=== PATIENT | male | born 1940 | race Caucasian/White ===

== ENCOUNTER 2019-09-01 07:33 | Day surgery (SDC) | payer MEDICARE, OTHER, SELFPAY ==
[2019-09-01 07:58] VITALS: BMI 28.8
--- NOTE | 2019-09-01 08:29 | ANES.PREANE2 ---
Pre-Anesthetic Assessment Pre-Anesthetic Assessment: Height/Weight: Height 1.75 m Weight 88.451 kg Preop Diagnosis: family history of colon cancer Proposed Procedure: Operation Date: 09/01/19 09:00 Proposed Procedures p Colonoscopy(Not Applicable) - Eber Judge MD Familial anesthetic complications: denies Was Beta Bertha taken within 24 hours: Yes (299) Last Intake: 00:00 Social: Social History: Tobacco (quit at age 35) and No alcohol Exam: Pre-Anes Outpt Exam: alert, oriented x 3, clear to auscultation bilaterally and regular rate & rhythm Airway: Submandibular: WNL Cervical ROM: WNL MP: 2 Dentition: Full History/ROS: No significant history except as noted CV/HEM: CV/HEM: Afib (ablation ) Metabolic: Metabolic: DM (A1C >6), Hyperlipidemia and Thyroid Musc/skel: Musc/skel: Weakness Neuropsych: Neuropsych: Depression and WISE (migraines) Anesthetic Plan: ASA status: 2 Anesthesia: Anesthesia Evaluation and MAC Risk of > 500 ml blood loss (7ml/kg in children): No Data Anesthesia Cardiac Studies: No Data to Display
[2019-09-01] MEDS: sodium chloride 0.9% 1,000 ML 30 ML (08:33)
[2019-09-01 08:35] VITALS: BP 119/68; PULSE 77; RESP 18; TEMP 36.6; O2SAT 100
[2019-09-01 08:43] LABS: Glucose Point of Care 129 mg/dL (70-110)
--- NOTE | 2019-09-01 08:53 | PM.HPUD ---
H&P update H&P Update: DATE OF SURGERY/PROCEDURE: 09/01/19 DATE H&P PERFORMED: 09/01/19 PREOP DIAGNOSIS: family history of colon cancer PLANNED PROCEDURE: Operation Date: 09/01/19 09:00 Proposed Procedures p Colonoscopy(Not Applicable) - Eber Judge MD Full H&P HPI: PRIMARY INDICATION/DIAGNOSIS FOR SURGICAL PROCEDURE: Personal history of colon polyps PLANNED PROCEDURE: Colonoscopy HPI: He presents for routine screening colonoscopy due to his personal history of colon polyp ROS: ROS: He denies fever chills nausea vomiting or chest pain. Perinent History: Medical/Surgical History: He has a personal history of A. fib and is on sotalol. He has hypothyroidism and mild diabetes mellitus type 2. Family History: Nothing pertinent Social History: He does not smoke Pertinent Exam Findings: PHYSICAL EXAM: alert, oriented x 3, clear to auscultation bilaterally and regular rate & rhythm
[2019-09-01 09:19] VITALS: BP 109/51; PULSE 94; RESP 14; TEMP 36.3; O2SAT 98
--- NOTE | 2019-09-01 09:24 | SUR.OPER ---
CLIP PLACED IN ASCENDING COLON
[2019-09-01 10:04] VITALS: BP 142/94; PULSE 63; RESP 18; TEMP 36.6; O2SAT 100
--- NOTE | 2019-09-01 10:25 | ANE.PACU2 ---
 Inpatient post-anesthesia follow up: Airway intact: Yes Vital signs: Temperature 97.8 F Pulse Rate 63 Respiratory Rate 18 Blood Pressure 142/94 Pulse Oximetry 100 Oxygen Delivery Me thod Room Air Oxygen Flow Rate 3 Fraction of Inspir ed Oxygen Hydration adequate: Yes Nausea and vomiting: No Mental status: Baseline
== END 2019-09-01 10:25 | disposition home or self-care (01) ==
PROVIDERS: Family Provider Internal Medicine; PCP Internal Medicine; Visit Provider Internal Medicine
PROC: 0DJD8ZZ Inspection of Lower Intestinal Tract, Via Natural or Artificial Opening Endoscopic (ICD-10-PCS; CPT 45378; principal; 2019-09-01 09:00)
DX: Z12.11 Encounter for screening for malignant neoplasm of colon (principal); Z86.010 Personal history of colon polyps; D12.2 Benign neoplasm of ascending colon; K57.30 Diverticulosis of large intestine without perforation or abscess without bleeding; I48.91 Unspecified atrial fibrillation; E03.9 Hypothyroidism, unspecified; E11.9 Type 2 diabetes mellitus without complications
CPT/HCPCS: 12345; 36416; 45385; 82962; 88305; J2704; J7030

== ENCOUNTER → 2020-02-12 15:16 | Outpatient (BNVA) | payer MEDICARE, OTHER, SELFPAY | PROVIDERS: Family Provider Internal Medicine; PCP Internal Medicine; Visit Provider Internal Medicine | DX: E11.9 Type 2 diabetes mellitus without complications (principal); I10 Essential (primary) hypertension; E03.9 Hypothyroidism, unspecified; I48.0 Paroxysmal atrial fibrillation | CPT/HCPCS: 80053; 83036; 84443; 85025 ==

== ENCOUNTER → 2020-03-10 12:54 | Outpatient (BNVA) | payer MEDICARE, OTHER, SELFPAY | PROVIDERS: Family Provider Internal Medicine; PCP Internal Medicine; Referring Provider Dermatology; Visit Provider Dermatology | DX: Z12.83 Encounter for screening for malignant neoplasm of skin (principal); L29.9 Pruritus, unspecified; L72.0 Epidermal cyst; B35.1 Tinea unguium; D18.01 Hemangioma of skin and subcutaneous tissue; L82.1 Other seborrheic keratosis | CPT/HCPCS: 99203 ==

== ENCOUNTER 2020-05-24 03:28 | Inpatient (IN) | payer MEDICARE, OTHER, SELFPAY ==
[2020-05-24] VITALS (16 sets, daily range): BP systolic 138–180; BP diastolic 67–98; PULSE 66–99; RESP 14–20; TEMP 36.2–36.6; O2SAT 91–98; BMI 29.0
--- NOTE | 2020-05-24 03:30 | CTR_ITS ---
PROCEDURE INFORMATION: Exam: CT Head Without Contrast Exam date and time: 05/24/2020 3:32 AM Age: 79 years old Clinical indication: Speech disturbance and weakness, extremity; Left; Slurred speech TECHNIQUE: Imaging protocol: Computed tomography of the head without contrast. Radiation optimization: All CT scans at this facility use at least one of these dose optimization techniques: automated exposure control; mA and/or kV adjustment per patient size (includes targeted exams where dose is matched to clinical indication); or iterative reconstruction. Other technique: STROKE PROTOCOL was implemented. COMPARISON: MR head wo con* [id number] 02/14/2016 8:20 AM RADIATION DOSE METRICS: Total DLP (mGy-cm): 910.45 FINDINGS: Brain: Normal. No hemorrhage. Unremarkable white matter. No mass effect. Cerebral ventricles: No ventriculomegaly. Bones/joints: Unremarkable. No acute fracture. Paranasal sinuses: Visualized sinuses are unremarkable. No fluid levels. Mastoid air cells: Visualized mastoid air cells are well aerated. Soft tissues: Unremarkable. CT/CT head wo con* [id number] IMPRESSION: No acute intracranial abnormality. ASSESSMENT: ASPECTS ([place] Stroke Program Early CT Score) is 10. Radiation Dose CTDIVOL = (mGy): DLP = 910.45 (mGy-cm)
--- NOTE | 2020-05-24 03:49 | ECG_ITS ---
[facility] Test Date: 2020-05-24 Pat Name: Ismael Guevara Department: Room: Gender: Male [employer]: : 1940 Requested By: Sudeep Ferraro Order Number: [id number] Alex MD: ANTONY MEJIA Measurements Intervals [place] Rate: 68 P: 58 OH: 217 QRS: 33 QRSD: 110 T: 69 QT: 430 QTc: 457 Interpretive Statements SINUS RHYTHM WITH FIRST DEGREE AV BLOCK No previous ECG available for comparison Electronically Signed On 05-24-2020 20:15:08 TIRE LAYER by ANTONY MEJIA [email or web address]
--- NOTE | 2020-05-24 03:49 | XRR_ITS ---
PROCEDURE INFORMATION: Exam: XR Chest, 1 View Exam date and time: 05/24/2020 4:06 AM Age: 79 years old Clinical indication: Other: CVA; Patient HX: Stroke like symptoms since last night TECHNIQUE: Imaging protocol: XR of the chest Views: 1 view. COMPARISON: CR Chest 1 [place] [id number] 10/18/2013 2:31 PM FINDINGS: Lungs: Unremarkable. No consolidation. Pleural space: Unremarkable. No pleural effusion. No pneumothorax. Heart/Mediastinum: Unremarkable. No cardiomegaly. Bones/joints: Unremarkable. XR/XR chest 1V portable [id number] IMPRESSION: No acute findings.
--- NOTE | 2020-05-24 03:49 | CTR_ITS ---
PROCEDURE INFORMATION: Exam: CT Angiography Head With Contrast Exam date and time: 05/24/2020 4:05 AM Age: 79 years old Clinical indication: Speech disturbance and weakness; Slurred speech; Additional info: CVA TECHNIQUE: Imaging protocol: Computed tomography angiography of the head with intravenous contrast. 3D rendering (Not supervised by radiologist): MIP and/or 3D reconstructed images were created by the technologist. Radiation optimization: All CT scans at this facility use at least one of these dose optimization techniques: automated exposure control; mA and/or kV adjustment per patient size (includes targeted exams where dose is matched to clinical indication); or iterative reconstruction. Contrast material: OMNI 350; Contrast volume: 95 ml; Contrast route: INTRAVENOUS (IV); COMPARISON: CT head wo con* [id number] 05/24/2020 3:31 AM RADIATION DOSE METRICS: Total DLP (mGy-cm): 2453.48 FINDINGS: ANTERIOR CIRCULATION: Right internal carotid artery: Unremarkable. Intracranial segment is patent with no significant stenosis. No aneurysm. Right middle cerebral artery: Unremarkable. No occlusion or significant stenosis. No aneurysm. Right anterior cerebral artery: Unremarkable. No occlusion or significant stenosis. No aneurysm. Left internal carotid artery: Unremarkable. Intracranial segment is patent with no significant stenosis. No aneurysm. Left middle cerebral artery: Unremarkable. No occlusion or significant stenosis. No aneurysm. Left anterior cerebral artery: Unremarkable. No occlusion or significant stenosis. No aneurysm. POSTERIOR CIRCULATION: Right vertebral artery: Unremarkable. No occlusion or significant stenosis. No aneurysm. Left vertebral artery: Unremarkable. No occlusion or significant stenosis. No aneurysm. Basilar artery: Unremarkable. No occlusion or significant stenosis. No aneurysm. Right posterior cerebral artery: Unremarkable. No occlusion or significant stenosis. No aneurysm. Left posterior cerebral artery: Unremarkable. No occlusion or significant stenosis. No aneurysm. Brain: No definite mass, mass effect, or midline shift. Cerebral ventricles: Normal. No ventriculomegaly. Bones/joints: Unremarkable. No acute fracture. Soft tissues: Unremarkable. IMPRESSION: No large vessel stenosis or occlusion. PROCEDURE INFORMATION: Exam: CT Angiography Neck With Contrast Exam date and time: 05/24/2020 4:05 AM Age: 79 years old Clinical indication: Speech disturbance and weakness; Slurred speech; Additional info: CVA TECHNIQUE: Imaging protocol: Computed tomography angiography of the neck with intravenous contrast. 3D rendering (Not supervised by radiologist): MIP and/or 3D reconstructed images were created by the technologist. Radiation optimization: All CT scans at this facility use at least one of these dose optimization techniques: automated exposure control; mA and/or kV adjustment per patient size (includes targeted exams where dose is matched to clinical indication); or iterative reconstruction. Contrast material: OMNI 350; Contrast volume: 95 ml; Contrast route: INTRAVENOUS (IV); COMPARISON: CT head wo [facility]* [id number] 05/24/2020 3:31 AM RADIATION DOSE METRICS: Total DLP (mGy-cm): 2453.48 FINDINGS: Right common carotid artery: No stenosis. No dissection or occlusion. Right internal carotid artery: Thick calcified plaque disease is seen in the proximal short segment causing more than 70% stenosis. Right external carotid artery: No occlusion or stenosis of the origin. Right vertebral artery: No stenosis. No dissection or occlusion. Left common carotid artery: No stenosis. No dissection or occlusion. Left internal carotid artery: Mild calcified plaque disease is seen in the proximal left internal carotid artery causing less than 50% stenosis. Left external carotid artery: No occlusion or stenosis of the origin. Left vertebral artery: No stenosis. No dissection or occlusion. Bones/joints: No acute fracture. Soft tissues: Normal. No significant soft tissue swelling. 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 Mild short-segment stenosis is seen in the proximal left internal carotid artery. REFERENCES: NASCET CRITERIA. The degree of internal carotid artery stenosis is based on NASCET criteria. Normal is no stenosis. Mild is less than 50% stenosis. Moderate is 50-69% stenosis. Severe is 70% to 99% stenosis. Total occlusion is no detectable patent lumen. Radiation Dose CTDIVOL = (mGy): DLP = 2453.48~2453.48 (mGy-cm)
[2020-05-24 04:07] LABS: Basophils % 1.2 %; Eosinophils # 0.1 10^3/uL (0.0-0.8); Eosinophils % 1.8 %; Hematocrit 37.7 % (42.0-52.0); Hemoglobin 12.1 g/dL (11.7-16.6); Lymphocytes % 30.6 %; Mean Corpuscular HGB Conc 32.1 g/dL (30.0-36.0); Mean Corpuscular Hemoglobin 26.9 pg (28.0-34.0); Mean Platelet Volume 10.3 fL (7.4-10.4); Monocytes # 0.7 10^3/uL (0.2-0.9); Neutrophils # 1.52 10^3/uL (1.8-7.7); Neutrophils % 46.1 %; Nucleated Red Blood Cells % 0 %; Platelet Count 140 10^3/cmm (130-400); Red Blood Count 4.49 10^6/uL (4.1-5.3); Red Cell Distribution Width 15.9 % (12.1-15.1); White Blood Count 3.3 10^3/uL (4.0-10.0)
[2020-05-24] MEDS: iohexol 350 mg/mL 100 mL Btl IV (04:10)
[2020-05-24] MEDS: sodium chloride 0.9% 500 ML 999 ML IV (04:12)
[2020-05-24 04:20] LABS: INR 1.05 (0.8-1.2)
[2020-05-24 04:21] LABS: Partial Thromboplastin Time 32.2 SECONDS (23.9-36.7)
[2020-05-24 04:32] LABS: Alanine Aminotransferase 13 U/L (0-41); Albumin Level 4.2 g/dL (3.5-5.2); Alkaline Phosphatase 44 IU/L (40-130); Anion Gap 15.9 (5-19); Aspartate Amino Transferase 18 U/L (0-40); Blood Urea Nitrogen 14 mg/dL (8-23); Carbon Dioxide 25 mmol/L (22-29); Chloride 95 mmol/L (98-107); Globulin 2.4 g/dL (1.3-4.6); Glucose 165 mg/dL (65-115); Osmolality Calculated 278 mOsm/kg (285-295); Potassium 3.9 mmol/L (3.5-5.1); Sodium 132 mmol/L (136-145); Total Bilirubin 0.4 mg/dL (0.15-1.2); Total Protein 6.6 g/dL (6.6-8.7)
--- NOTE | 2020-05-24 04:37 | W.ED.NEUROSD ---
HPI - Neuro Symptoms/Deficit General: Chief Complaint: Neuro Symptoms/Deficit Stated Complaint: STROKE LIKE SYMPTOMS Time Seen by Provider: 05/24/20 03:30 History of Present Illness: HPI Narrative: 79-year-old male, anticoagulated for chronic atrial fibrillation status post ablation x2, presents with left-sided weakness. This is acute onset. His last known well was around 10 PM when he went to bed. He awoke at 3 AM to use the restroom, and stumbled noted that his left side was weak. Onset (ago): hour(s) Last Observed Normal: 22:00 Location: left face, dysarthria, left arm and left leg History of same: No Severity: moderate Quality: weak and numb Relieving factors: none Exacerbating factors: none Context: sudden onset On Anticoagulants: Yes Associated symptoms: Reports anorexia and weakness; Deny chest pain, short of breath, syncope or vomiting Review of Systems Const: Denies: fever(s) or chills Card: Denies: chest pain, palpitations or syncope Resp: Denies: dyspnea, productive cough or non-productive cough GI: Denies: vomiting PFSH ED PFSH: Medical History (Updated 05/24/20 @ 06:03 by Sudeep Lopez DO) A-fib Diabetes mellitus Electrical isolation of left atrial appendage after cardiac ablation procedure for atrial fibrillation Hypothyroid Surgical History History of tonsillectomy and adenoidectomy Family History Other CAD (coronary artery disease) Denies family history of Diabetes Cancer Social History Smoking and tobacco status: former smoker Alcohol intake: never History of recent travel: No Current gender identity: Male NIH stroke score NIHSS: Level Of Consciousness - 1a: 0 Level Of Consciousness Questions - 1b: Both Correct Level Of Consciousness Commands - 1c: Both Correct Best Gaze - 2: Normal Visual [place] - 3: No Visual Loss Facial Palsy - 4: Normal Motor Arm Right - 5: No Drift Motor Arm Left - 5: Drift Motor Leg Right - 6: No Drift Motor Leg Left - 6: Drift Limb Ataxia - 7: Present In One Limb Sensory - 8: Mild To Moderate Loss Best Language - 9: No Aphasia Dysarthia - 10: Mild/Moderate Dysarthia Extinction And Inattention - 11: 0 Score: Total Score: 5 Physical Exam Const: GENERAL APPEARANCE: well developed ORIENTATION/CONSCIOUSNESS: Yes oriented to person, Yes oriented to place and Yes oriented to time HENMT: COMMON NORMALS: normocephalic, external ears normal and Normal external nose present HEAD & SCALP: normocephalic FACE & SINUS: normal facial exam NOSE: Normal external nose present and No nasal discharge present EXTERNAL EAR: Yes external ears normal TEETH & GINGIVA: no abnormal tooth and associated gingiva THROAT: posterior oropharynx normal; no peritonsillar mass Eye: COMMON NORMALS: Equal, round and reactive pupils present, EOMs intact bilaterally and conjunctivae normal EYELID: eyelids normal CONJUNCTIVA: Yes conjunctivae normal PUPIL: Yes Equal, round and reactive pupils present Neck/C-Spine: GENERAL: No tracheal deviation Chest: COMMONS NORMALS: normal inspection of the chest CHEST: No tenderness Resp: COMMON NORMALS: clear to auscultation bilaterally EFFORT & INSPECTION: No tachypneic, No respiratory distress, No retractions, No uses accessory muscles and No tracheal deviation AUSCULTATION: clear to auscultation bilaterally, no rhonchi, no wheezes and lung sounds not diminished Cardio: COMMON NORMALS: regular rate and regular rhythm RATE: regular rate RHYTHM: regular rhythm HEART SOUNDS: no murmurs PERIPHERAL PULSES: radial pulses present GI: INSPECTION: No abdominal distension AUSCULTATION: No Hyperactive bowel sounds present and No Hypoactive bowel sounds present PALPATION: No Guarding due to palpation present (GI) and No Rigid due to palpation PERCUSSION: no dullness to percussion and no tympanic to percussion Neuro: SENSORIUM/ORIENTATION: Yes oriented to person, Yes oriented to place and Yes oriented to time Psych: COMMON NORMALS: mental status grossly normal Skin: COMMON NORMALS: no rashes or lesions noted GENERAL SKIN EXAM: no rashes or lesions noted Course Consultations: Consultation #1: tammie Time: 04:27 Consultation #2: Steffany Time: 06:01 Vital Signs: Vital signs: Vital Signs Temperature 97.1 F L 05/24/20 03:41 Pulse Rate 72 05/24/20 06:01 Respiratory Rate 18 05/24/20 06:01 Blood Pressure 140/67 05/24/20 06:01 Pulse Oximetry 96 11/02/20 06:01 MDM - Neuro Symptoms/Deficit MDM Narrative: Medical decision making narrative: 79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 He has no visual field loss. He has no aphasia. Weakness is worse in the left upper extremity than the left lower extremity. He has some sensory changes as well. He is on anticoagulants, and is greater than 5 hours out of his last known well time. These are contraindicated for TPA therapy. CTA is pending. CTA resulted. There is right internal carotid short segment stenosis greater than 70% with no distinct occlusion. Consulted stroke team neurology at [facility] in [place]. Given his last known well of 2200 last night, the fact that he is on apixaban, and and the fact that there is no distinct occlusion, they had nothing specific to add other than he will need urgent outpatient interventional neurosurgery referral in a few days once his work-up is complete. Lab Data: Labs: Lab Results 05/24/20 05/24/20 05/24/20 Range/Units 03:55 03:55 03:55 WBC 3.3 L (4.0-10.0) 10^3/ uL RBC 4.49 (4.1-5.3) 10^6/u L Hgb 12.1 (11.7-16.6) g/dL Hct 37.7 L (42.0-52.0) % MCV 84.0 (80-94) fL MCH 26.9 L (28.0-34.0) pg MCHC 32.1 (30.0-36.0) g/dL RDW 15.9 H (12.1-15.1) % Plt Count 140 (130-400) 10^3/c mm MPV 10.3 (7.4-10.4) fL Neut % (Auto) 46.1 % Lymph % (Auto) 30.6 % Bland % (Auto) 20.0 % Eos % (Auto) 1.8 % Baso % (Auto) 1.2 % Neut # (Auto) 1.52 L (1.8-7.7) 10^3/u L Lymph # (Auto) 1.0 (0.8-4.8) 10^3/u L Bland # (Auto) 0.7 (0.2-0.9) 10^3/u L Eos # (Auto) 0.1 (0.0-0.8) 10^3/u L Baso # (Auto) 0.0 (0.0-0.1) 10^3/u L Nucleated RBC % (a uto) 0 % Nucleated RBCs # 0.0 /100WBC PT 14.00 (12.1-14.9) SECO NDS INR 1.05 (0.8-1.2) APTT 32.2 (23.9-36.7) SECO NDS Sodium 132 L (136-145) mmol/L Potassium 3.9 (3.5-5.1) mmol/L Chloride 95 L (98-107) mmol/L Carbon Dioxide 25 (22-29) mmol/L Anion Gap 15.9 (5-19) BUN 14 (8-23) mg/dL Creatinine 0.7 (0.7-1.2) mg/dL GFR Calculation Not Reportable Glucose 165 H (65-115) mg/dL Calculated Osmolal ity 278 L (285-295) mOsm/k g Calcium 9.0 (8.5-10.5) mg/dL Total Bilirubin 0.4 (0.15-1.2) mg/dL AST 18 (0-40) U/L ALT 13 (0-41) U/L Alkaline Phosphata se 44 (40-130) IU/L Total Protein 6.6 (6.6-8.7) g/dL Albumin 4.2 (3.5-5.2) g/dL Globulin 2.4 (1.3-4.6) g/dL Discharge Plan Discharge Patient Disposition: Admitted As Inpatient Clinical Impression: Cerebrovascular accident Qualifiers: CVA mechanism: embolism Precerebral and cerebral artery: middle cerebral artery Laterality of affected vessel: right Qualified Code(s): I63.411 - Cerebral infarction due to embolism of right middle cerebral artery Condition: Stable Referrals: Eber Judge MD [Primary Care Provider] - Coding Level of Care Code ED Adjustment Examiner for [facility] Fwd Exam Comprehensive
[2020-05-24] MEDS: ondansetron 2 mg/ML SDV 2 mL 4 MG IVP (05:10)
--- NOTE | 2020-05-24 05:15 | PC.NURSE ---
upopn returning from CT, pt has complaint of nausea. Dr notified, vo obtained for 4mg of zofran. Pt states improvement from nausea after zofran adm
--- NOTE | 2020-05-24 05:35 | PC.NURSE ---
during rounding, pt offered assistance with urinal. pt refusing assistance, stating he will call if I need help . Pt able to lift L arm only without resistance. L arm does drift away while attempting to hold arms straight. Speech is slower, slurring more pronounced. Dr brody
[2020-05-24 06:21] LABS: Add Urine Microscopic? NO
[2020-05-24 06:26] LABS: Bilirubin Urine Neg (Negative); Blood Urine Neg (Negative); Glucose Urine UA 4+ (Normal); Ketones Urine 2+ (Negative); Leukocyte Esterase Urine Negative (Negative); Nitrate Urine Negative (Negative); Protein Urine Neg (Negative); Urine Appearance Clear (CLEAR); Urine Color Yellow (Yellow); Urobilinogen Urine Norm (Negative); pH Urine 5 (5-7)
--- NOTE | 2020-05-24 06:48 | PC.NURSE ---
Received report , assumed care. No changes noted from report. Waiting for room to come available. Continue to monitor.
--- NOTE | 2020-05-24 07:30 | PC.NURSE ---
Patient to CSU from ER. Patient resting in bed, A&Ox4. Neuro assessment performed. Patient educated on fall risk, bed alarm activated. Patient oriented to room and call light. Nurse to continue to monitor.
--- NOTE | 2020-05-24 07:50 | MR_ITS ---
WS: [id number] MRI HEAD WITH CONTRAST TECHNIQUE: Sagittal T1, T2 axial, T2 axial FLAIR, axial susceptibility weighted imaging, axial diffus ion weighted images, and coronal T2 images were obtained. Pre and post-T1 axial and post T1 coronal i mages. ADC and FSPGR images. CLINICAL INFORMATION: CVA COMPARISON: CT May 25, 2020 and MRI FINDINGS: No evidence of restricted diffusion to suggest acute ischemia. Ventricular system and basal cisterns are patent. 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 Suprasellar extension results in mild mass effect on the optic chiasm. Recommend correlati on with visual symptoms. Slight extension to the right cavernous sinus. Cavernous sinuses and Meckel' s cave appear patent. No hemosiderin on the susceptibility weighted images. No other suspicious intracranial signal abnorma lities. Moderate parenchymal volume loss. Normal posterior fossa. Normal vascular flow voids at the s kull base. No extra-axial fluid collections. Paranasal sinuses and mastoid air cells are well aerated . No enhancing intraparenchymal abnormalities. Normal dural venous sinuses.
--- NOTE | 2020-05-24 07:54 | PM.HP ---
Providers/Chief Complaint Admitting Physician: Cory Valdivia Primary Care Provider: Eber Judge MD Chief Complaint: STROKE LIKE SYMPTOMS History of Present Illness 79-year-old male with a past medical history significant for hypertension, hypothyroidism, and diabetes mellitus who presented to the hospital with left-sided weakness. Patient stated that he woke up around 2:00 a.m. and noticed the symptoms. He was attempting to walk to restroom. Also noted left-sided facial numbness and speech abnormality. Stated he checked his blood pressure in found this to be very elevated at 203/94. Denies any previous history of TIA or CVA. Denies any chest pain or palpitations. No recent fever, chills, nausea vomiting. Called EMS and presented to the hospital for evaluation. NIH score was 5. at the time of my evaluation he had stated that his symptoms were slowly resolving. No tPA was given due to unknown onset of symptoms. Head CT without contrast was performed which did not show any acute intra-cranial abnormalities. Subsequently a CTA of head and neck was performed and he was found to have right internal carotid short-segment stenosis greater than 70%. No distinct occlusion was noted. [facility] neurology was consulted by emergency room and recommended urgent outpatient interventional neuro surgical consult. His laboratory workup showed a WBC of 3.3, hemoglobin of 12.1, hematocrit 37.7 and platelet count of 140. sodium 132, potassium 3.9, chloride 95, bicarb 25, BUN 14 and creatinine is 0.7. Glucose 165. LFTs were within normal limits. Urinalysis showed 4+ glucose and 2+ ketones. Patient was started on aspirin and admitted to the hospital for stroke workup. Review of Systems General: Reports: 10 or more systems reviewed and unremarkable except in HPI and below Medications/Allergies Home Medications Medication Instructions Recorded Confirmed Last Taken Type apixaban 5 mg tablet 5 mg PO BID #180 tab 08/11/19 05/24/20 05/23/20 18:00 Rx levothyroxine [Synthroid] 150 mcg PO DAILY 09/01/19 05/24/20 05/23/20 08:00 History sotalol 120 mg PO BID 09/01/19 05/24/20 05/23/20 18:00 History irbesartan 75 mg tablet 75 mg PO DAILY #90 tab 01/13/20 05/24/20 05/23/20 08:00 Rx canagliflozin 300 mg tablet 300 mg PO DAILY #90 tab 02/09/20 05/24/20 05/23/20 08:00 Rx clonazepam 0.5 mg tablet 0.5 mg PO TID PRN #90 tab 03/12/20 05/24/20 Unknown Rx sitagliptin 100 mg tablet 100 mg PO DAILY #30 tab 04/16/20 05/24/20 05/23/20 08:00 Rx terbinafine HCl 250 mg PO BEDTIME 05/24/20 05/24/20 05/23/20 20:00 History Allergies Allergy/AdvReac Type Severity Reaction Status Date / Time rivaroxaban [From Xarelto] AdvReac nausea Verified 03/10/20 13:13 PFSH Acute PFSH: Medical History (Updated 05/24/20 @ 06:03 by Sudeep Lopez DO) A-fib Diabetes mellitus Electrical isolation of left atrial appendage after cardiac ablation procedure for atrial fibrillation Hypothyroid Surgical History History of tonsillectomy and adenoidectomy Family History Other CAD (coronary artery disease) Denies family history of Diabetes Cancer Social History Smoking and tobacco status: former smoker Alcohol intake: never History of recent travel: No Current gender identity: Male Vitals/I&O/Wt Last Vital Signs Temp 97.5 F L 05/24/20 07:15 Pulse 84 05/24/20 07:52 Resp 16 05/24/20 07:52 BP 180/98 05/24/20 07:52 Pulse Ox 96 05/24/20 07:15 Weight last 48 hrs Weight 89.358 kg Physical Exam Narrative: EXAM NARRATIVE: General: Alert, Awake HEENT : Speech back to baseline, Grossly unremarkable CVS - Regular rate and rythym ,no obvious murmurs Chest: Clear to ausculatation ABD - Soft Non-tender Ext - No edema Neuro; Noted motor deficit on left UE/LE - 3/5, no significant facial droop, sensory system intact. Data : 05/24/20 03:55 05/24/20 03:55 A&P Assessment and plan (1) Cerebrovascular accident: Status: Acute Qualifiers: CVA mechanism: embolism Laterality of affected vessel: right Precerebral and cerebral artery: middle cerebral artery Qualified Code(s): I63.411 - Cerebral infarction due to embolism of right middle cerebral artery (2) A-fib: Status: Acute Qualifiers: Atrial fibrillation type: paroxysmal Qualified Code(s): I48.0 - Paroxysmal atrial fibrillation (3) Hypothyroid: Status: Acute Qualifiers: Hypothyroidism type: acquired Qualified Code(s): E03.9 - Hypothyroidism, unspecified (4) Essential hypertension: Status: Acute (5) Diabetes mellitus: Status: Acute Qualifiers: Diabetes mellitus type: type 2 Diabetes mellitus roasterman insulin use: without roasterman use Diabetes mellitus complication status: without complication Qualified Code(s): E11.9 - Type 2 diabetes mellitus without complications Acute CVA with right sided weakness - Initiate [facility] - Neuro-checks - Cardiac telemetry - CTA Head/Neck - Over 70% stenosis noted in proximal right internal carotid. Mild left internal carotid artery stenosis - MRI Brain ordered - pending - ECHO - pending - Start on Aspirin 325 mg Po daily - High dose statin therapy - Lipitor 80 mg PO qhs - Bedside swallow prior to initiating diet - NPO - NS at 75 cc/hr - Lipid panel in am - A1c in AM - Hold anti-hypertensive - allow for permissive hypertension - Consult PT/OT Severe stenosis of KARLA - Asa/statin started - Will discuss with CTS at [facility] [place] Paroxysmal Atrial Fibrillation - Currently NSR - Resume eliquis after MRI report to assess severity of cva - ECHO - Pending - My require cardiology consult for GÉNESIS Diabetes mellitus - A1c > 8.0 in 01/2020 - Sliding scale insulin - Recheck a1c in am - Hold oral home meds. Hypertension - Holding anti-hypertensive as noted above Hypothyroidism - Check TSH in AM - Resume levothyroxine. GI ppx - PPI DVT ppx - SCDS only pending MRI - Will start Eliquis after Attestations Medical Necessity Statement*: Presented to the hospital with left upper lower extremity weakness suspicious for acute CVA, severe stenosis of right internal carotid artery will require over 2 midnight stay in hospital for evaluation and treatment. Time Spent in Patient Care: Greater than 35 minutes Coding Level of Care Code Acute Steam Conditioner Filling for [place] Diagnoses Cerebrovascular accident I63.411 CVA mechanism: embolism Laterality of affected vessel: right Precerebral and cerebral artery: middle cerebral artery A-fib I48.0 Atrial fibrillation type: paroxysmal Hypothyroid E03.9 Hypothyroidism type: acquired Essential hypertension I10 Diabetes mellitus E11.9 Diabetes mellitus type: type 2 Diabetes mellitus [facility] insulin use: without roasterman use Diabetes mellitus complication status: without complication
[2020-05-24] MEDS: sodium chloride 0.9% 1,000 ML 100 ML IV ×2 (08:39→16:37)
--- NOTE | 2020-05-24 09:57 | PC.CHAP ---
Pastoral Care Encounter/Spiritual Assessment Type of Contact [] Declined art history professor visit [] Patient/Family/Request visit [] Outpatient visit [] Follow-up visit [] Physician referral [] Code/Alert [] Routine visit [] Staff referral [] Actively dying [] Patient sleeping [] Family support [] [] Out of room [] Palliative care [] [x] Receiving care in room [] Pre-surgical visit [] Trauma [] Long length of stay [] ICU visit [] Other: Relational/Emotional Strength [] Patient feels connected with others/family/visitors/staff [] Distress [] Loneliness/isolation [] Abandonment Spirituality of Patient [] Person of Linda [] Attends Anabaptism of their Linda [] Believes in Prayer [] Reads Bible or Scientologist materials [] There are Spiritual issues to be addressed Managed Care Provider Interventions [x] Prayer [] Active listening [] Non-anxious presence [] Spiritual/emotional support [] Crisis/trauma care [] Spiritual counseling [] Bereavement support [] Provided bereavement packet [] Provided Bible/devotional materials [] Provided toy/stuffed animal, coloring book to patient or family member [] Provided Communion [] Anointing/[place] [] Salvation [x] Completed spiritual assessment [] Other: Impact on Illness or Injury [] Angry [] Fearful [] Anxious [] Often cries [] Exhaustion [] Unable to work [] Unable to attend mu-ism [] Unable to walk/stand [] Unable to read [] Unable to drive [] Unable to eat/drink [] Unable to sleep [] Unable to be with family [] Patient intubated [] Other: Summary Time spent with patient
--- NOTE | 2020-05-24 09:58 | PC.NURSE ---
Patient to MRI at this time.
--- NOTE | 2020-05-24 10:13 | PC.OT ---
OT note: Pt going to MRI. Will attempt later as able.
--- NOTE | 2020-05-24 10:41 | MR_ITS ---
WS: [id number] MRI HEAD WITH CONTRAST TECHNIQUE: Sagittal T1, T2 axial, T2 axial FLAIR, axial susceptibility weighted imaging, axial diffus ion weighted images, and coronal T2 images were obtained. Pre and post-T1 axial and post T1 coronal i mages. ADC and FSPGR images. CLINICAL INFORMATION: CVA COMPARISON: CT May 24, 2020 and MRI FINDINGS: Tiny focus of restricted diffusion involving the right centrum semiovale. Additional small linear foc us of restricted diffusion involving the right hemipons consistent with acute ischemia measuring 12 m m. Small amount of edema. No significant mass effect or midline shift. Fourth ventricle is patent. No rmal prepontine cistern. No hemosiderin on susceptibly weighted images. Mild small vessel changes. Moderate parenchymal volume loss. Normal posterior fossa. Normal vascular flow voids at the skull base. No extra-axial fluid col lections. Paranasal sinuses and mastoid air cells well aerated. Mild mucosal thickening in the ethmoi d air cells. Normal optic chiasm and pituitary infundibulum. Mild symmetric atrophy involving the temporal lobes a nd hippocampal formations. No abnormal gadolinium enhancement. Dural venous sinuses are patent MR/MR head wo/w con [id number] IMPRESSION: 1. 12 mm acute infarct in the right hemipons. Mild edema. No mass effect. 2. Additional tiny acute lacunar infarct in the right centrum semiovale. 3. Mild small vessel changes. Moderate parenchymal volume loss. 4. No abnormal gadolinium enhancement. 5. Normal optic chiasm and pituitary infundibulum. 6. No other acute findings. Attempted notification Cory Valdivia MD at 05/24/2020 2:34 PM. Not currently available for verbal report.
[2020-05-24 11:21] LABS: Glucose Point of Care 124 mg/dL (70-110)
[2020-05-24 12:14] LABS: Glucose Point of Care 107 mg/dL (70-110)
[2020-05-24 16:15] LABS: Glucose Point of Care 275 mg/dL (70-110)
[2020-05-24] MEDS: apixaban 5 mg Tablet PO (16:40)
--- NOTE | 2020-05-24 18:03 | PC.NURSE ---
Uneventful shift. Patient up ad is[place], tolerated activity and meal well. No needs identified at this time. Nurse to continue to monitor.
[2020-05-24] MEDS: atorvastatin 40 mg Tablet 80 MG PO (20:47)
[2020-05-24] MEDS: sotalol 80 mg Tablet 120 MG PO (20:47)
[2020-05-24 20:59] LABS: Glucose Point of Care 192 mg/dL (70-110)
--- NOTE | 2020-05-24 21:21 | PC.NURSE ---
Dr. Broussard notified of patient stating that his IV pump was driving him nuts and preventing him from sleeping. IV pump was stating Downstream occlusion every time patient would bend his left arm due to IV being in left AC. Patient was educated that an IV can be started in a new place and patient did not want this. Dr. Broussard notified of patient asking if IV fluids can be shut off due to patient stating he is drinking plenty of fluid. Ordered to turn fluids down to 75 ml/hr. Patient then refused to have IV fluids running. Dr. Broussard notified and fluids taken off of patient. Patient apologized, stating I'm sorry, I don't mean to be noncompliant, I just need to get some sleep. Patient states he takes PO Terbinafine for a fungus. Patient states that he would like the doctor to be asked if this medication can be continued. Dr. Broussard ordered okay to continue this home medication. Pharmacy states we do not carry this medication in PO form, only in topical form. Patient notified of this and stated he would have his bring his from home. Patient has no other complaints at this time.
[2020-05-25] VITALS (8 sets, daily range): BP systolic 141–200; BP diastolic 73–116; PULSE 67–80; RESP 14–22; TEMP 36.6–36.9; O2SAT 92–98
--- NOTE | 2020-05-25 04:28 | PC.NURSE ---
Patient has no complaints at this time. Will monitor.
[2020-05-25 05:31] LABS: Chol HDL Ratio 6.96 mg/dL (1.0-5.00); Cholesterol 362 mg/dL (0-200); HDL Cholesterol 52 mg/dL (60-100); LDL Cholesterol Calculated 291 mg/dL (50-129); Triglycerides 94 mg/dL (0-150)
--- NOTE | 2020-05-25 06:00 | USCV_ITS ---
Ismael Guevara Age: 79 Gender: M : 1940 Exam Date: 05/25/2020 06:19 Ordering Phys: Cory Valdivia MD Technologist: Charlette Alcantar Exam Location: [facility] [place] Indication: CVA BP: 145 / 78 HR: 70 Rhythm: Sinus Technical Quality: Adequate MEASUREMENTS (Male / Female) Normal Values 2D ECHO LV Diastolic Diameter PLAX 4.2 cm 4.2 - 5.9 / 3.9 - 5.3 cm LV Systolic Diameter PLAX 2.8 cm LV Chamber Size 3.4 cm IVS Diastolic Thickness 1.3 cm 0.6 - 1.0 / 0.6 - 0.9 cm IVS Systolic Thickness 1.6 cm LVPW Diastolic Thickness 2.1 cm 0.6 - 1.0 / 0.6 - 0.9 cm LVPW Systolic Thickness 2.5 cm RV Chamber Size 3.6 cm LVOT Diameter 2.1 cm LV Ejection Fraction 2D Teich 61.9 % LV Ejection Fraction MOD 2C 49.0 % LV Ejection Fraction 2C AL 50.1 % LA Diameter 3.4 cm LA Width 4.4 cm LA Height 4.7 cm RA Width 0.0 cm RA Height 4.2 cm Aorta at Sinotubular Diameter 3.1 cm M-MODE LV Diastolic Diameter MM 5.5 cm 4.2 - 5.9 / 3.9 - 5.3 cm LV Systolic Diameter MM 3.4 cm LV Ejection Fraction MM Teich 68.5 % IVS Diastolic Thickness MM 1.0 cm 0.6 - 1.0 / 0.6 - 0.9 cm IVS Systolic Thickness MM 1.4 cm LVPW Diastolic Thickness MM 1.1 cm 0.6 - 1.0 / 0.6 - 0.9 cm LVPW Systolic Thickness MM 1.7 cm Aortic Annulus Diameter 3.4 cm LA Ao Ratio MM 1.1 MV E Point Septal Separation 1.3 cm DOPPLER AV Peak Velocity 125.0 cm/s LVOT Peak Velocity 99.0 cm/s AV Area Cont Eq vti 3.0 cm squared AV Area Cont Eq pk 2.7 cm squared MV Area PHT 3.7 cm squared Mitral E to A Ratio 1.1 MV E' Velocity 46.0 cm/s Mitral E to MV E' Ratio 9.6 Mitral E to LV E' Lateral Ratio 9.5 Mitral E to LV E' Septal Ratio 9.7 TR Peak Velocity 141.0 cm/s TR Peak Gradient 8.0 mmHg TV Peak E Velocity 63.0 cm/s Right Atrial Pressure 3.0 mmHg Pulmonary Artery Systolic Pressu 11.0 mmHg PV Peak Velocity 70.0 cm/s RV Acceleration Time 0.1 s RV Ejection Time 0.4 s RV AcT/ET 0.3 FINDINGS Left Ventricle Normal left ventricular size, systolic function and wall thickness, with no regional wall motion abnormalities. Left ventricular ejection fraction is estimated at 53 %. Normal diastolic function. Right Ventricle Normal right ventricular size and systolic function. Right ventricular systolic pressure 11 mmHg. Right Atrium Normal right atrial size. Left Atrium Normal left atrial size. Mitral Valve Structurally normal mitral valve. No mitral valve stenosis. Trace mitral valve regurgitation. Aortic Valve Structurally normal trileaflet aortic valve. No aortic valve stenosis. Mild aortic valve regurgitation. Tricuspid Valve Structurally normal tricuspid valve. No tricuspid valve stenosis. Trace tricuspid valve regurgitation. Pulmonic Valve Pulmonic valve not well visualized. No pulmonary valve stenosis. Pericardium No pericardial effusion. Aorta Upper normal sized aortic root. CONCLUSIONS 1. Normal left ventricular size, systolic function and wall thickness, with no regional wall motion abnormalities. Left ventricular ejection fraction is estimated at 53 %. Normal diastolic function. 2. Mild aortic valve regurgitation. 3. Normal pulmonary artery pressure. 4. No prior similar studies to compare. Bernadine Beatty MD (Electronically Signed) Final Date: 25 May 2020 13:21 S
[2020-05-25 06:44] LABS: Glucose Point of Care 155 mg/dL (70-110)
--- NOTE | 2020-05-25 07:30 | PC.NURSE ---
pt sitting on the side of the bed to eat breakfast. no needs at this time. will continue to monitor.
--- NOTE | 2020-05-25 08:57 | PC.CHAP ---
Pastoral Care Encounter/Spiritual Assessment Type of Contact [] Declined basket assembler visit [] Patient/Family/Request visit [] Outpatient visit [] Follow-up visit [] Physician referral [] Code/Alert [x] Routine visit [] Staff referral [] Actively dying [] Patient sleeping [] Family support [] [] Out of room [] Palliative care [] [] Receiving care in room [] Pre-surgical visit [] Trauma [] Long length of stay [] ICU visit [] Other: Relational/Emotional Strength [] Patient feels connected with others/family/visitors/staff [] Distress [] Loneliness/isolation [] Abandonment Spirituality of Patient [] Person of Linda [] Attends Yazdanism of their Linda [] Believes in Prayer [] Reads Bible or Holiness materials [] There are Spiritual issues to be addressed Irrigator Overhead Interventions [] Prayer [x] Active listening [x] Non-anxious presence [] Spiritual/emotional support [] Crisis/trauma care [] Spiritual counseling [] Bereavement support [] Provided bereavement packet [] Provided Bible/devotional materials [] Provided toy/stuffed animal, coloring book to patient or family member [] Provided Communion [] Anointing/[place] [] Salvation [x] Completed spiritual assessment [] Other: Impact on Illness or Injury [] Angry [] Fearful [] Anxious [] Often cries [] Exhaustion [] Unable to work [] Unable to attend zoroastrian [] Unable to walk/stand [] Unable to read [] Unable to drive [] Unable to eat/drink [] Unable to sleep [] Unable to be with family [] Patient intubated [] Other: 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 non believer, although feels he will be experiencing after life soon.. Time spent with patient 15 min
[2020-05-25] MEDS: aspirin 325 mg Tablet PO (09:22)
[2020-05-25] MEDS: apixaban 5 mg Tablet PO ×2 (09:23→18:15)
[2020-05-25] MEDS: sotalol 80 mg Tablet 120 MG PO ×2 (09:23→21:35)
[2020-05-25] MEDS: levothyroxine 150 mcg Tablet PO (09:23)
[2020-05-25 11:31] LABS: Glucose Point of Care 263 mg/dL (70-110)
--- NOTE | 2020-05-25 15:40 | PC.NURSE ---
pt reported his left arm and hand going numb and turning blue and tingling. upon assessment no changes were noted from previous assessments. blood pressure was 200/90 manually. pt stated that he felt like it is weaker than earlier. stat head ct ordered. when pt returned blood pressure was 196/92 and pt was concerned about it. notified with the response that he wanted to keep it high and want fluids increased to 100cc per hour. dr wanted nih done at this time. results were 6 dr notified, said he would look at ct and begin agressivly trying to control the blood pressure tomorrow.
--- NOTE | 2020-05-25 15:44 | CTR_ITS ---
PROCEDURE INFORMATION: Exam: CT Head Without And With Contrast Exam date and time: 05/25/2020 4:15 PM Age: 79 years old Clinical indication: Weakness, extremity; Left; Additional info: Left sided weakness TECHNIQUE: Imaging protocol: Computed tomography of the head without and with intravenous contrast. Radiation optimization: All CT scans at this facility use at least one of these dose optimization techniques: automated exposure control; mA and/or kV adjustment per patient size (includes targeted exams where dose is matched to clinical indication); or iterative reconstruction. Contrast material: OMNI 300; Contrast volume: 95 ml; Contrast route: INTRAVENOUS (IV); COMPARISON: 1. CT head wo con* [id number] 05/24/2020 3:31 AM 2. MR head wo/w con [id number] 05/24/2020 10:53:46 AM RADIATION DOSE METRICS: Total DLP (mGy-cm): 1456.36 FINDINGS: Brain: Mild parenchymal volume loss noted. There is decreased attenuation of the periventricular white matter, consistent with mild microangiopathic chronic white matter disease. Subtle decreased density noted in the anterior see, best demonstrated on the postcontrast images. This correlates to the acute pontine infarct demonstrated on MR brain dated 05/24/2020. No intracranial hemorrhage noted. No enhancing brain lesions are noted. Cerebral ventricles: The ventricles are proportional to the sulci. No hydrocephalus is noted. Bones/joints: No acute fracture. Paranasal sinuses: Visualized sinuses are unremarkable. No fluid levels. Mastoid air cells: No mastoid effusion. Soft tissues: Unremarkable. CT/CT head wo/w con [id number] IMPRESSION: 1. Chronic intracranial changes are present. 2. Hypodense area in the anterior see, consistent with known acute pontine infarct demonstrated on MRI brain of 05/24/2020. 3. There is no new abnormality when compared to the previous studies. Radiation Dose CTDIVOL = (mGy): DLP = 1456.36 (mGy-cm)
[2020-05-25 16:18] LABS: Glucose Point of Care 118 mg/dL (70-110)
--- NOTE | 2020-05-25 16:20 | PM.PN ---
Subjective Subjective: Interval history: 79-year-old male with a past medical history significant for hypertension, hypothyroidism, and diabetes mellitus who presented to the hospital with left-sided weakness. Patient stated that he woke up around 2:00 a.m. and noticed the symptoms. He was attempting to walk to restroom. Also noted left-sided facial numbness and speech abnormality. Stated he checked his blood pressure in found this to be very elevated at 203/94. Denies any previous history of TIA or CVA. Denies any chest pain or palpitations. No recent fever, chills, nausea vomiting. Called EMS and presented to the hospital for evaluation. NIH score was 5. at the time of my evaluation he had stated that his symptoms were slowly resolving. No tPA was given due to unknown onset of symptoms. Head CT without contrast was performed which did not show any acute intra-cranial abnormalities. Subsequently a CTA of head and neck was performed and he was found to have right internal carotid short-segment stenosis greater than 70%. No distinct occlusion was noted. [facility] neurology was consulted by emergency room and recommended urgent outpatient interventional neuro surgical consult. His laboratory workup showed a WBC of 3.3, hemoglobin of 12.1, hematocrit 37.7 and platelet count of 140. sodium 132, potassium 3.9, chloride 95, bicarb 25, BUN 14 and creatinine is 0.7. Glucose 165. LFTs were within normal limits. Urinalysis showed 4+ glucose and 2+ ketones. Patient was started on aspirin and admitted to the hospital for stroke workup. Shortly after admission patients symptoms improved significantly. An MRI brain was performed which showed acute infarct measuring 12mm in right hemipons and an additional tiny lacunar infarct. Case was discussed with neurology and due to the location and nature of stroke suspected this could be embolic stroke related to patients atrial fibrillation and less likely due to severe short segment stenosis in proximal right internal carotid. In light of this urgent CEA was not warranted. Case was also discussed with cardiothorasic surgery. Aspirin 325 mg was added to regimen. Eliquis was resumed. 05/25/2020 Overnight patient continued to have improvement in left upper and lower extremity weakness. Was able to ambulate with physical therapy. At around 4 pm patient started to have acute onset of left upper extremity weakness/numbness which was brief. Repeat CT head was ordered and pending. Denied chest pain or dyspnea. No light headedness or dizziness. No fever, chills, nausea or vomiting. Vitals/I&O/Wt Last Vital Signs Temp 97.8 F 05/25/20 15:11 Pulse 73 05/25/20 15:13 Resp 17 05/25/20 15:13 BP 200/90 05/25/20 15:13 Pulse Ox 95 05/25/20 15:13 05/25/20 05/25/20 05/25/20 06:59 14:59 22:59 Intake Total 300 / 1575.000 360 / 360 Balance 300 / -1250.000 360 / 360 Weight last 48 hrs Weight 89.358 kg Physical Exam Narrative: EXAM NARRATIVE: General: Alert, Awake HEENT : Speech back to baseline, Grossly unremarkable CVS - Regular rate and rythym ,no obvious murmurs Chest: Non-labored respirations ABD - Soft Non-tender Ext - No edema Neuro; Noted motor deficit on left UE/LE - 4/5, no significant facial droop. Speech at baseline. sensory system intact. Data : 05/24/20 03:55 05/24/20 03:55 A&P Assessment and plan (1) Cerebrovascular accident: Status: Acute Qualifiers: CVA mechanism: embolism Laterality of affected vessel: right Precerebral and cerebral artery: middle cerebral artery Qualified Code(s): I63.411 - Cerebral infarction due to embolism of right middle cerebral artery (2) A-fib: Status: Acute Qualifiers: Atrial fibrillation type: paroxysmal Qualified Code(s): I48.0 - Paroxysmal atrial fibrillation (3) Hypothyroid: Status: Acute Qualifiers: Hypothyroidism type: acquired Qualified Code(s): E03.9 - Hypothyroidism, unspecified (4) Essential hypertension: Status: Acute (5) Diabetes mellitus: Status: Acute Qualifiers: Diabetes mellitus type: type 2 Diabetes mellitus shelter insulin use: without shelter use Diabetes mellitus complication status: without complication Qualified Code(s): E11.9 - Type 2 diabetes mellitus without complications Acute ischemic stroke - NIH on arrival 5 - Neuro-checks - Cardiac telemetry - CTA Head/Neck - Over 70% stenosis noted in proximal right internal carotid. Mild left internal carotid artery stenosis - MRI Brain showed 12 mm area in right gosia-see, tiny area of acute lacunar infarct. - ECHO - pEF, mild AI, no evidence of LV thrombus - Continue Aspirin 325 mg Po daily - Lipitor 80 mg PO qhs - Continued diet as per ST recommendation - Aspiration precautions - Hold anti-hypertensive - allow for permissive hypertension - Now with acute worsening and numbness on right upper extremity - Stat CT head wo contrast ordered - Will need to lay flat afterwards - Repeat NIH - NPO at 6 am - Plan for GÉNESIS tomorrow - Dr. Kaur notified Severe stenosis of KARLA - Asa/statin to continue - To follow up with CTS - Dr. Taylor notified - Kushal need CEA surgery with in 4-6 weeks post discharge. Paroxysmal Atrial Fibrillation - Currently NSR - Sotalol 120 mg PO BID - Eliquis 5 mg PO BID - ECHO as noted above - Plan for GÉNESIS in am - assess left atrial appendage Diabetes mellitus - A1c > 8.0 in 01/2020 - Sliding scale insulin - Recheck a1c in am - Hold oral home meds. Hypertension - Allowing for permissive hypertension - If not additional stroke will plan to resume tomorrow Hypothyroidism - Continue levothyroxine 150 mcg PO daily GI ppx - PPI DVT ppx - SCDS / Eliquis Attestations Medical Necessity Statement*: Due to ongoing stroke work up including GÉNESIS will continue hospitalization. Time Spent in Patient Care: Greater than 35 minutes Coding Level of Care Code Acute Regional Sales Engineer for g Fwd Diagnoses Cerebrovascular accident I63.411 CVA mechanism: embolism Laterality of affected vessel: right Precerebral and cerebral artery: middle cerebral artery A-fib I48.0 Atrial fibrillation type: paroxysmal Hypothyroid E03.9 Hypothyroidism type: acquired Essential hypertension I10 Diabetes mellitus E11.9 Diabetes mellitus type: type 2 Diabetes mellitus terminal manager insulin use: without terminal manager use Diabetes mellitus complication status: without complication
[2020-05-25] MEDS: iohexol 300 mg/mL 100 mL Btl IV (16:46)
--- NOTE | 2020-05-25 20:09 | PC.NURSE ---
Concrete Batching Plant Operator in right hand is still stronger than link machine operator in left hand, however left hand appears to be stronger in link machine operator than it was my previous shift. Speech also appears to be slightly clearer.
[2020-05-25 21:28] LABS: Glucose Point of Care 137 mg/dL (70-110)
[2020-05-25] MEDS: atorvastatin 40 mg Tablet 80 MG PO (21:35)
[2020-05-25] MEDS: sodium chloride 0.9% 1,000 ML 100 ML IV (22:57)
[2020-05-26] VITALS (7 sets, daily range): BP systolic 138–177; BP diastolic 70–89; PULSE 66–73; RESP 12–21; TEMP 36.3–37.1; O2SAT 92–97
[2020-05-26 06:28] LABS: Basophils % 0.7 %; Eosinophils # 0.1 10^3/uL (0.0-0.8); Eosinophils % 1.4 %; Hematocrit 38.4 % (42.0-52.0); Hemoglobin 11.9 g/dL (11.7-16.6); Lymphocytes # 1.1 10^3/uL (0.8-4.8); Lymphocytes % 25.1 %; Mean Corpuscular Hemoglobin 27.1 pg (28.0-34.0); Mean Corpuscular Volume 87.5 fL (80-94); Mean Platelet Volume 11.1 fL (7.4-10.4); Monocytes # 0.6 10^3/uL (0.2-0.9); Neutrophils # 2.46 10^3/uL (1.8-7.7); Neutrophils % 57.6 %; Nucleated Red Blood Cells % 0 %; Platelet Count 130 10^3/cmm (130-400); Red Blood Count 4.39 10^6/uL (4.1-5.3); Red Cell Distribution Width 16.3 % (12.1-15.1); White Blood Count 4.3 10^3/uL (4.0-10.0)
[2020-05-26 06:28] LABS: Glucose Point of Care 141 mg/dL (70-110)
[2020-05-26 07:01] LABS: Alanine Aminotransferase 11 U/L (0-41); Albumin Level 3.7 g/dL (3.5-5.2); Alkaline Phosphatase 42 IU/L (40-130); Anion Gap 17.9 (5-19); Aspartate Amino Transferase 11 U/L (0-40); Blood Urea Nitrogen 10 mg/dL (8-23); Calcium 8.4 mg/dL (8.5-10.5); Carbon Dioxide 24 mmol/L (22-29); Chloride 99 mmol/L (98-107); Globulin 2.3 g/dL (1.3-4.6); Glucose 159 mg/dL (65-115); Osmolality Calculated 286 mOsm/kg (285-295); Potassium 3.9 mmol/L (3.5-5.1); Sodium 137 mmol/L (136-145); Total Bilirubin 0.4 mg/dL (0.15-1.2)
[2020-05-26] MEDS: aspirin 325 mg Tablet PO (08:47)
[2020-05-26] MEDS: sotalol 80 mg Tablet 120 MG PO ×2 (08:47→20:19)
[2020-05-26] MEDS: apixaban 5 mg Tablet PO ×2 (08:47→17:36)
[2020-05-26] MEDS: levothyroxine 150 mcg Tablet PO (08:48)
[2020-05-26] MEDS: sodium chloride 0.9% 1,000 ML 100 ML IV (09:33)
[2020-05-26] MEDS: losartan 50 mg Tablet 25 MG PO (09:33)
--- NOTE | 2020-05-26 10:36 | PC.NURSE ---
physician notified of pt blood sugar being 141. telephn
--- NOTE | 2020-05-26 10:36 | PC.NURSE ---
physician notified of blood sugar of 141. telephone order to hold novolog due to pt being npo for GÉNESIS. will continue to monitor pt. call light within reach.
[2020-05-26 11:22] LABS: Glucose Point of Care 122 mg/dL (70-110)
--- NOTE | 2020-05-26 11:34 | P.PN_ITS ---
Subjective Subjective: Interval history: 79-year-old male with a past medical history significant for hypertension, hypothyroidism, and diabetes mellitus who presented to the hospital with left-sided weakness. Patient stated that he woke up around 2:00 a.m. and noticed the symptoms. He was attempting to walk to restroom. Also noted left-sided facial numbness and speech abnormality. Stated he checked his blood pressure in found this to be very elevated at 203/94. Denies any previous history of TIA or CVA. Denies any chest pain or palpitations. No recent fever, chills, nausea vomiting. Called EMS and presented to the hospital for evaluation. NIH score was 5. at the time of my evaluation he had stated that his symptoms were slowly resolving. No tPA was given due to unknown onset of symptoms. Head CT without contrast was performed which did not show any acute intra-cranial abnormalities. Subsequently a CTA of head and neck was performed and he was found to have right internal carotid short-segment stenosis greater than 70%. No distinct occlusion was noted. [facility] neurology was consulted by emergency room and recommended urgent outpatient interventional neuro surgical consult. His laboratory workup showed a WBC of 3.3, hemoglobin of 12.1, hematocrit 37.7 and platelet count of 140. sodium 132, potassium 3.9, chloride 95, bicarb 25, BUN 14 and creatinine is 0.7. Glucose 165. LFTs were within normal limits. Urinalysis showed 4+ glucose and 2+ ketones. Patient was started on aspirin and admitted to the hospital for stroke workup. Shortly after admission patients symptoms improved significantly. An MRI brain was performed which showed acute infarct measuring 12mm in right hemipons and an additional tiny lacunar infarct. Case was discussed with neurology and due to the location and nature of stroke suspected this could be embolic stroke related to patients atrial fibrillation and less likely due to severe short segment stenosis in proximal right internal carotid. In light of this urgent CEA was not warranted. Case was also discussed with cardiothorasic surgery. Aspirin 325 mg was added to regimen. Eliquis was resumed. 05/25/2020 Overnight patient continued to have improvement in left upper and lower extremity weakness. Was able to ambulate with physical therapy. At around 4 pm patient started to have acute onset of left upper extremity weakness/numbness which was brief. Repeat CT head was ordered and pending. Denied chest pain or dyspnea. No light headedness or dizziness. No fever, chills, nausea or vomiting. 05/26/2020 No new neurological symptoms overnight. Brief episode of LUE weakness and numbness resolved. No fever, chills, nausea or vomiting. Denied chest pain or dyspnea. Awaiting GÉNESIS this afternoon. Vitals/I&O/Wt Last Vital Signs Temp 97.8 F 05/26/20 11:01 Pulse 66 05/26/20 11:01 Resp 12 05/26/20 11:01 BP 145/77 05/26/20 11:01 Pulse Ox 94 05/26/20 11:01 05/25/20 05/26/20 05/26/20 22:59 06:59 14:59 Intake Total 563.333 / 1283.333 300 / 0875.451 8064 / 1000 Output Total 300 / 300 425 / 725 350 / 350 Balance 263.333 / 983.333 -125 / 858.333 650 / 650 Physical Exam Narrative: EXAM NARRATIVE: General: Alert, Awake HEENT : Speech back to baseline, Grossly unremarkable CVS - Regular rate and rythym ,no obvious murmurs Chest: Non-labored respirations ABD - Soft Non-tender Ext - No edema Neuro; Noted motor deficit on left UE/LE - 4/5, no significant facial droop. Speech at baseline. Sensory system intact. Data : 05/26/20 05:10 05/26/20 05:10 A&P Assessment and plan (1) Cerebrovascular accident: Status: Acute Qualifiers: CVA mechanism: embolism Laterality of affected vessel: right Precerebral and cerebral artery: middle cerebral artery Qualified Code(s): I63.411 - Cerebral infarction due to embolism of right middle cerebral artery (2) A-fib: Status: Acute Qualifiers: Atrial fibrillation type: paroxysmal Qualified Code(s): I48.0 - Paroxysmal atrial fibrillation (3) Hypothyroid: Status: Acute Qualifiers: Hypothyroidism type: acquired Qualified Code(s): E03.9 - Hypothyroidism, unspecified (4) Essential hypertension: Status: Acute (5) Diabetes mellitus: Status: Acute Qualifiers: Diabetes mellitus type: type 2 Diabetes mellitus detention insulin use: without detention use Diabetes mellitus complication status: without complication Qualified Code(s): E11.9 - Type 2 diabetes mellitus without complications Acute ischemic stroke - NIH on arrival 5 - Neuro-checks - Cardiac telemetry - CTA Head/Neck - Over 70% stenosis noted in proximal right internal carotid. Mild left internal carotid artery stenosis - MRI Brain showed 12 mm area in right gosia-see, tiny area of acute lacunar infarct. - ECHO - pEF, mild AI, no evidence of LV thrombus - Continue Aspirin 325mg Po daily - can likely decrease to low dose asa at discharge - Lipitor 80 mg PO qhs - Continued diet as per ST recommendation - Aspiration precautions - Initially held for perm> permissive hypertension > 48, Will now resume ARB - 05.25.[address] due to brief episode of worsening LUE weakness - No new cva was noted or hemorrhagic conversion. Evolving known CVA in right gosia-see - NPO currenlty for GÉNESIS this afternoon. Carotid artery disease - Severe stenosis of KARLA - Asa/statin to continue - To follow up with CTS - Dr. Taylor notified - Kushal need CEA surgery with in 4-6 weeks post discharge. - If having recurrant episodes of new neurological symptoms my need to consider urgently or in 2 weeks Paroxysmal Atrial Fibrillation - Currently NSR - Sotalol 120 mg PO BID - Eliquis 5 mg PO BID - ECHO as noted above - Plan for GÉNESIS today - assess left atrial appendage, lv thrombus - Following with EP cardiology in [facility] Diabetes mellitus - A1c > 8.0 in 01/2020 - Sliding scale insulin - Recheck a1c in am - Hold oral home meds. Hypertension - Arb resumed today - Will need further BP med titration Hypothyroidism - Continue levothyroxine 150 mcg PO daily GI ppx - PPI DVT ppx - SCDS / Eliquis Disposition: Anticipate discharge home in 1-2 days with home PT/OT services. Attestations Medical Necessity Statement*: Continuing neuro-cardiac work up after stroke. Will require further hospitalization Time Spent in Patient Care: Greater than 35 minutes (>than 50% of time spent in counselling and/or direct pt care on unit) . Coding Level of Care Code Acute Neuroscience Specialist for [place] Diagnoses Cerebrovascular accident I63.411 CVA mechanism: embolism Laterality of affected vessel: right Precerebral and cerebral artery: middle cerebral artery A-fib I48.0 Atrial fibrillation type: paroxysmal Hypothyroid E03.9 Hypothyroidism type: acquired Essential hypertension I10 Diabetes mellitus E11.9 Diabetes mellitus type: type 2 Diabetes mellitus detention insulin use: without local intermodal truck driver use Diabetes mellitus complication status: without complication
--- NOTE | 2020-05-26 11:43 | P.ANESASSM_ITS ---
Pre-Anesthetic Assessment Pre-Anesthetic Assessment: Height/Weight: Height 1.75 m Weight 89.358 kg Temp Pulse Resp BP Pulse Ox 97.8 F 66 12 145/77 94 05/26/20 11:01 05/26/20 11:01 05/26/20 11:01 05/26/20 11:01 05/26/20 11:01 Preop Diagnosis: family history of colon cancer Proposed Procedure: Operation Date: 05/26/20 14:30 Proposed Procedures p GÉNESIS (Transesophageal Echocardiogram)(Not Applicable) - Lucy Kaur MD Familial anesthetic complications: None Was Beta Bertha taken within 24 hours: Yes Last intake: NPO > 8 hrs Social: Social History: No tobacco Exam: Pre-Anes Outpt Exam: alert, oriented x 3, clear to auscultation bilat erally and regular rate & rhythm Airway: Cervical ROM: WNL MP: 2 Dentition: Full CV/HEM: CV/HEM: Afib (s/p ablation but continues to take eliquid at home) and HTN Comments: echo EF 53%, mild AVR Metabolic: Metabolic: DM and Thyroid Neuropsych: Neuropsych: CVA (With admission in see;still having L sided weakness) Comments: carotid artery stenosis (R> L) Anesthetic Plan: ASA status: 3 Anesthesia: MAC Risk of > 500 ml blood loss (7ml/kg in children): No Meds/Allergies Current Medications: Current Medications Generic Name Dose Route Start Last Admin Trade Name Freq PRN Reason Stop Dose Admin Apixaban 5 mg 05/24/20 18:00 05/26/20 08:47 Eliquis PO 5 mg BID CHIN Administration Aspirin 325 mg 05/25/20 09:00 05/26/20 08:47 Aspirin PO 325 mg DAILY CHIN Administration Atorvastatin Calci um 80 mg 05/24/20 21:00 05/25/20 21:35 Lipitor PO 80 mg BEDTIME CHIN Administration Sodium Chloride 1,000 mls @ 100 m ls/hr 05/24/20 07:16 05/26/20 09:33 Sodium Chloride 0.9% IV 100 mls/hr .Q10H CHIN Administration Insulin Aspart 0 unit 05/25/20 12:00 05/26/20 11:34 Novolog SUBCUT Not Given WM&BEDTIME CHIN Protocol Levothyroxine Sodi um 150 mcg 05/25/20 09:00 05/26/20 08:48 Synthroid PO 150 mcg DAILY CHIN Administration Losartan Potassium 25 mg 05/26/20 09:30 05/26/20 09:33 Cozaar PO 25 mg DAILY CHIN Administration Sotalol HCl 120 mg 05/24/20 21:00 05/26/20 08:47 Betapace PO 120 mg BID@0900,2100 CHIN Administration PFSH Anesthesia PFSH: Medical History (Updated 05/24/20 @ 06:03 by Sudeep Lopez DO) A-fib Diabetes mellitus Electrical isolation of left atrial appendage after cardiac ablation procedure for atrial fibrillation Hypothyroid Surgical History History of tonsillectomy and adenoidectomy Family History Other CAD (coronary artery disease) Denies family history of Diabetes Cancer Social History Smoking and tobacco status: former smoker Alcohol intake: never History of recent travel: No Current gender identity: Male Data Anesthesia CBC & Chem 7: 05/26/20 05:10 05/26/20 05:10 Other Labs: Laboratory Results - last 48 hr 05/24/20 05/24/20 05/24/20 11:56 15:59 20:19 WBC RBC Hgb Hct MCV MCH MCHC RDW Plt Count MPV Neut % (Auto) Lymph % (Auto) Edwards % (Auto) Eos % (Auto) Baso % (Auto) Neut # (Auto) Lymph # (Auto) Edwards # (Auto) Eos # (Auto) Baso # (Auto) Nucleated RBC % (auto) Nucleated RBCs # Sodium Potassium Chloride Carbon Dioxide Anion Gap BUN Creatinine GFR Calculation Glucose POC Glucose 107 275 192 Calculated Osmolality Calcium Total Bilirubin AST ALT Alkaline Phosphatase Total Protein Albumin Globulin Triglycerides Cholesterol LDL Cholesterol, Calc HDL Cholesterol LDL/HDL Ratio Cholesterol/HDL Ratio 05/25/20 05/25/20 05/25/20 04:35 06:34 10:49 WBC RBC Hgb Hct MCV MCH MCHC RDW Plt Count MPV Neut % (Auto) Lymph % (Auto) Edwards % (Auto) Eos % (Auto) Baso % (Auto) Neut # (Auto) Lymph # (Auto) Edwards # (Auto) Eos # (Auto) Baso # (Auto) Nucleated RBC % (auto) Nucleated RBCs # Sodium Potassium Chloride Carbon Dioxide Anion Gap BUN Creatinine GFR Calculation Glucose POC Glucose 155 263 Calculated Osmolality Calcium Total Bilirubin AST ALT Alkaline Phosphatase Total Protein Albumin Globulin Triglycerides 94 Cholesterol 362 H LDL Cholesterol, Calc 291 H HDL Cholesterol 52 L LDL/HDL Ratio 5.60 H Cholesterol/HDL Ratio 6.96 H 05/25/20 05/25/20 05/26/20 16:11 20:44 05:10 WBC 4.3 RBC 4.39 Hgb 11.9 Hct 38.4 L MCV 87.5 MCH 27.1 L MCHC 31.0 RDW 16.3 H Plt Count 130 MPV 11.1 H Neut % (Auto) 57.6 Lymph % (Auto) 25.1 Edwards % (Auto) 15.0 Eos % (Auto) 1.4 Baso % (Auto) 0.7 Neut # (Auto) 2.46 Lymph # (Auto) 1.1 Edwards # (Auto) 0.6 Eos # (Auto) 0.1 Baso # (Auto) 0.0 Nucleated RBC % (auto) 0 Nucleated RBCs # 0.0 Sodium Potassium Chloride Carbon Dioxide Anion Gap BUN Creatinine GFR Calculation Glucose POC Glucose 118 137 Calculated Osmolality Calcium Total Bilirubin AST ALT Alkaline Phosphatase Total Protein Albumin Globulin Triglycerides Cholesterol LDL Cholesterol, Calc HDL Cholesterol LDL/HDL Ratio Cholesterol/HDL Ratio 05/26/20 05/26/20 05/26/20 05:10 06:24 11:00 WBC RBC Hgb Hct MCV MCH MCHC RDW Plt Count MPV Neut % (Auto) Lymph % (Auto) Edwards % (Auto) Eos % (Auto) Baso % (Auto) Neut # (Auto) Lymph # (Auto) Edwards # (Auto) Eos # (Auto) Baso # (Auto) Nucleated RBC % (auto) Nucleated RBCs # Sodium 137 Potassium 3.9 Chloride 99 Carbon Dioxide 24 Anion Gap 17.9 BUN 10 Creatinine 0.5 L GFR Calculation Not Reportable Glucose 159 H POC Glucose 141 122 Calculated Osmolality 286 Calcium 8.4 L Total Bilirubin 0.4 AST 11 ALT 11 Alkaline Phosphatase 42 Total Protein 6.0 L Albumin 3.7 Globulin 2.3 Triglycerides Cholesterol LDL Cholesterol, Calc HDL Cholesterol LDL/HDL Ratio Cholesterol/HDL Ratio Cardiac Studies: No Data to Display
--- NOTE | 2020-05-26 13:00 | USCV_ITS ---
Ismael Guevara Age: 79 Gender: M : 1940 Exam Date: 05/26/2020 15:56 Ordering Phys: Cory Valdivia MD Technologist: Marsha Daniel Exam Location: [facility] [place] Indication: AFIB BP: 144 / 82 HR: 64 Rhythm: Sinus Technical Quality: Good MEASUREMENTS (Male / Female) Normal Values Medications Patient given IV sedation by anesthesia service, for details please refer to the anesthesia report. Complications None. Proc. Components GÉNESIS was performed at multiple levels in mid esophagus and gastric levels. FINDINGS Left Ventricle Normal left ventricular size, systolic function and wall thickness, with no regional wall motion abnormalities. Left ventricular ejection fraction is estimated at 60 %. Right Ventricle Normal right ventricular size and systolic function. Right Atrium Normal right atrial size. Left Atrium Normal left atrial size. LA Appendage Normal left atrial appendage. Normal flow velocities in the left atrial appendage. No thrombus visualized in the left atrial appendage. IA Septum Normal interatrial septum. No patent foramen ovale or atrial septal defect by color flow doppler or agitated saline study. Mitral Valve Structurally normal mitral valve. No mitral valve stenosis. Trace mitral valve regurgitation. Aortic Valve Structurally normal trileaflet aortic valve. No aortic valve stenosis. [id number] aortic valve regurgitation. Tricuspid Valve Structurally normal tricuspid valve. Trace tricuspid valve regurgitation. Pulmonic Valve Structurally normal pulmonic valve. No pulmonary valve stenosis. Trace pulmonary valve regurgitation. Pericardium No pericardial effusion. Aorta Normal size aortic root and proximal ascending aorta. No evidence of aortic dilation, aneurysm or dissection. CONCLUSIONS 1. Normal left ventricular size, systolic function and wall thickness, with no regional wall motion abnormalities. Left ventricular ejection fraction is estimated at 60 %. 2. [id number] aortic valve regurgitation. 3. No left atrial or left atrial appendage thrombus. 4. No prior similar studies to compare. Bernadine Beatty MD (Electronically Signed) Final Date: 30 May 2020 23:05 S
[2020-05-26 14:56] LABS: SARS Covid-2 Antigen Negative (Negative)
--- NOTE | 2020-05-26 15:52 | PM.CONSULT ---
Providers/Reason For Consult Consulting Physican/Specialty*: Dr. Beatty, cardiology Reason for Consult*: Left sided CVA, GÉNESIS to r/o intracardiac thrombus Attending Physician: Cory Valdivia Primary Care Provider: Eber Judge MD History of Present Illness History of Present Illness 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 fib ablationsx2 (last one in 2011) on Eliquis and Sotalol. He follows up with Dr. Galvez at [facility]. He is complaints with medications. He presented with left upper and lower expremity weakness, facial weakness and slurred speech on 05/25. NIHSS 5 and no tPA d/t unclear time of onset. 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 TTE did not reveal any obvious intracardiac thrombus. GÉNESIS requested for complete evaluation and r/o intracardiac thrombus. Review of Systems General: Reports: 10 or more systems reviewed and unremarkable except in HPI and below Const: Denies: fever(s) or chills ENMT: Denies: nasal congestion or epistaxis Card: Denies: chest pain, palpitations, dyspnea on exertion or orthopnea Resp: Denies: dyspnea or productive cough GI: Denies: hematochezia or melena : Denies: hematuria Musc: Reports: muscle weakness (left arm and left leg); Denies: extremity swelling Skin/Breast: Denies: rash Neuro: Reports: weakness in extremities and Slurred speech present Psych: Denies: anxiety Sammy/Lymph: Denies: petechiae or purpura Meds/Allergies Home Medications and Allergies Home Medications Medication Instructions Recorded Confirmed Last Taken Type apixaban 5 mg tablet 5 mg PO BID #180 tab 08/11/19 05/24/20 05/23/20 18:00 Rx levothyroxine [Synthroid] 150 mcg PO DAILY 09/01/19 05/24/20 05/23/20 08:00 History sotalol 120 mg PO BID 09/01/19 05/24/20 05/23/20 18:00 History irbesartan 75 mg tablet 75 mg PO DAILY #90 tab 01/13/20 05/24/20 05/23/20 08:00 Rx canagliflozin 300 mg tablet 300 mg PO DAILY #90 tab 02/09/20 05/24/20 05/23/20 08:00 Rx clonazepam 0.5 mg tablet 0.5 mg PO TID PRN #90 tab 03/12/20 05/24/20 Unknown Rx sitagliptin 100 mg tablet 100 mg PO DAILY #30 tab 04/16/20 05/24/20 05/23/20 08:00 Rx terbinafine HCl 250 mg PO BEDTIME 05/24/20 05/24/20 05/23/20 20:00 History Allergies Allergy/AdvReac Type Severity Reaction Status Date / Time rivaroxaban [From Xarelto] AdvReac nausea Verified 03/10/20 13:13 Current Medications Current Medications Generic Name Dose Route Start Last Admin Trade Name Freq PRN Reason Stop Dose Admin Apixaban 5 mg 05/24/20 18:00 05/26/20 08:47 Eliquis PO 5 mg BID CHIN Administration Aspirin 325 mg 05/25/20 09:00 05/26/20 08:47 Aspirin PO 325 mg DAILY CHIN Administration Atorvastatin Calcium 80 mg 05/24/20 21:00 05/25/20 21:35 Lipitor PO 80 mg BEDTIME CHIN Administration Sodium Chloride 1,000 mls @ 100 mls/hr 05/24/20 07:16 05/26/20 09:33 Sodium Chloride 0.9% IV 100 mls/hr .Q10H CHIN Administration Insulin Aspart 0 unit 05/25/20 12:00 05/26/20 11:34 Novolog SUBCUT Not Given WM&BEDTIME CHIN Protocol Levothyroxine Sodium 150 mcg 05/25/20 09:00 05/26/20 08:48 Synthroid PO 150 mcg DAILY CHIN Administration Losartan Potassium 25 mg 05/26/20 09:30 05/26/20 09:33 Cozaar PO 25 mg DAILY CHIN Administration Sotalol HCl 120 mg 05/24/20 21:00 05/26/20 08:47 Betapace PO 120 mg BID@0900,2100 CHIN Administration PFSH Acute PFSH: Medical History A-fib Diabetes mellitus Electrical isolation of left atrial appendage after cardiac ablation procedure for atrial fibrillation Hypothyroid Surgical History History of tonsillectomy and adenoidectomy Family History Other CAD (coronary artery disease) Denies family history of Diabetes Cancer Social History Smoking and tobacco status: former smoker Alcohol intake: never History of recent travel: No Current gender identity: Male Vitals/I&O/Wt Last Vital Signs Temp 97.3 F L 05/26/20 14:52 Pulse 69 05/26/20 14:52 Resp 13 05/26/20 14:52 BP 177/89 05/26/20 14:52 Pulse Ox 96 05/26/20 14:52 05/26/20 05/26/20 05/26/20 06:59 14:59 22:59 Intake Total 300 / 8607.854 2926 / 1000 Output Total 425 / 725 550 / 550 Balance -125 / 858.333 450 / 450 Physical Exam Narrative: EXAM NARRATIVE: Gen: NAD HEENT/Neck: PEERL, No JVD. 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 Normal left ventricular size, systolic function and wall thickness, with no regional wall motion abnormalities. Left ventricular ejection fraction is estimated at 53 %. Normal diastolic function. 2. Mild aortic valve regurgitation. 3. Normal pulmonary artery pressure. 4. No prior similar studies to compare. Radiologist's impression: IMPRESSION: 1. Chronic intracranial changes are present. 2. Hypodense area in the anterior see, consistent with known acute pontine infarct demonstrated on MRI brain of 05/24/2020. 3. There is no new abnormality when compared to the previous studies. Head MRI (05/24/20) IMPRESSION: 1. 12 mm acute infarct in the right hemipons. Mild edema. No mass effect. 2. Additional tiny acute lacunar infarct in the right centrum semiovale. 3. Mild small vessel changes. Moderate parenchymal volume loss. 4. No abnormal gadolinium enhancement. 5. Normal optic chiasm and pituitary infundibulum. 6. No other acute findings. CTA neck IMPRESSION: Severe short-segment stenosis is seen in the proximal right internal carotid artery. Mild short-segment stenosis is seen in the proximal left internal carotid artery. A&P Assessment and plan (1) Cerebrovascular accident: Plan for GÉNESIS. Risks and benefits were discussed with the patients. Alternate management options were discussed with the patient as well. Possible complications were reviewed with the patient as well. Plan is to proceed for the procedure today. Status: Acute Qualifiers: CVA mechanism: embolism Laterality of affected vessel: right Precerebral and cerebral artery: middle cerebral artery Qualified Code(s): I63.411 - Cerebral infarction due to embolism of right middle cerebral artery (2) A-fib: Remains in NSR. -EKG showed NSR. No ST-T wave changes. -continue current medications. Status: Acute Qualifiers: Atrial fibrillation type: paroxysmal Qualified Code(s): I48.0 - Paroxysmal atrial fibrillation (3) Essential hypertension: BP elevated, permissive HTN post stroke Status: Acute (4) Diabetes mellitus: Status: Acute Qualifiers: Diabetes mellitus complication status: without complication Diabetes mellitus jail insulin use: without jail use Diabetes mellitus type: type 2 Qualified Code(s): E11.9 - Type 2 diabetes mellitus without complications (5) Hypothyroid: Status: Acute Qualifiers: Hypothyroidism type: acquired Qualified Code(s): E03.9 - Hypothyroidism, unspecified Additional A&P Information Carotid artery stenosis: referral to Dr. Rod as outpt. Thank you for allowing me to participate in patient's care. Please feel free to call with questions or concerns. Consult Attestations Medical Necessity Statement: Needs hospital stay for CVA. Procedures Time out/Consent Time Out Performed: Yes Consent for Procedure: Consent obtained from patient, Risks & Benefits reviewed and Agrees to proceed with procedure Procedure Narrative GÉNESIS Indication: Stroke Sedation: Propofol by anesthesia. Refer to anesthesia report for details. Procedure: Attempts x 1 , Intubation easy. No blood on probe post procedure. Prelim: Normal LV size and function. No ASD/PFO identified. No LA/MARY thrombus identified. Full report to follow. 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
--- NOTE | 2020-05-26 15:59 | PC.SLP ---
GOLD BURNISHER attempted to see pt, however, pt is getting set up for GÉNESIS procedure, and currently not available.
[2020-05-26 16:05] LABS: Glucose Point of Care 101 mg/dL (70-110)
--- NOTE | 2020-05-26 17:12 | PC.NURSE ---
dr temple in to do shima procedure. start time of 1648. vitals monitored throughout procedure. stop time of 170. seee anesthesia record for specifics. pt tolerated well. will continue to monitor
--- NOTE | 2020-05-26 17:16 | PC.NURSE ---
PER DOCTOR SHANE PATIENT MAY HAVE AN EXTRA VISITOR, HIS BROTHER JP FOSTER.
[2020-05-26] MEDS: atorvastatin 40 mg Tablet 80 MG PO (20:18)
[2020-05-26 20:25] LABS: Glucose Point of Care 346 mg/dL (70-110)
--- NOTE | 2020-05-26 22:06 | PC.NURSE ---
Patient has no complaints at this time. Will monitor.
[2020-05-27] MEDS: sodium chloride 0.9% 1,000 ML 100 ML IV (01:55)
[2020-05-27 03:51] VITALS: BP 149/82; PULSE 68; RESP 18; TEMP 36.8; O2SAT 94
[2020-05-27 05:29] LABS: Basophils % 0.9 %; Eosinophils # 0.1 10^3/uL (0.0-0.8); Hematocrit 35.1 % (42.0-52.0); Hemoglobin 11.1 g/dL (11.7-16.6); Lymphocytes # 1.2 10^3/uL (0.8-4.8); Lymphocytes % 27.4 %; Mean Corpuscular HGB Conc 31.6 g/dL (30.0-36.0); Mean Corpuscular Hemoglobin 27.3 pg (28.0-34.0); Mean Corpuscular Volume 86.5 fL (80-94); Mean Platelet Volume 10.6 fL (7.4-10.4); Monocytes # 0.7 10^3/uL (0.2-0.9); Neutrophils % 53.5 %; Nucleated Red Blood Cells % 0 %; Platelet Count 130 10^3/cmm (130-400); Red Blood Count 4.06 10^6/uL (4.1-5.3); Red Cell Distribution Width 16.2 % (12.1-15.1); White Blood Count 4.5 10^3/uL (4.0-10.0)
[2020-05-27 05:53] LABS: Alanine Aminotransferase 12 U/L (0-41); Albumin Level 3.6 g/dL (3.5-5.2); Alkaline Phosphatase 44 IU/L (40-130); Anion Gap 12.8 (5-19); Aspartate Amino Transferase 10 U/L (0-40); Blood Urea Nitrogen 10 mg/dL (8-23); Calcium 8.4 mg/dL (8.5-10.5); Carbon Dioxide 25 mmol/L (22-29); Chloride 101 mmol/L (98-107); Globulin 2.1 g/dL (1.3-4.6); Glucose 185 mg/dL (65-115); Osmolality Calculated 284 mOsm/kg (285-295); Potassium 3.8 mmol/L (3.5-5.1); Sodium 135 mmol/L (136-145); Total Bilirubin 0.3 mg/dL (0.15-1.2); Total Protein 5.7 g/dL (6.6-8.7)
[2020-05-27 06:32] LABS: Estmated Average Glucose 157; Hemoglobin A1C 7.1 % (4.0-6.0)
[2020-05-27 06:37] LABS: Glucose Point of Care 131 mg/dL (70-110)
[2020-05-27 07:08] VITALS: BP 185/91; PULSE 65; RESP 16; TEMP 36.6; O2SAT 97
[2020-05-27 09:50] VITALS: BP 185/91
[2020-05-27] MEDS: aspirin 325 mg Tablet PO (09:50)
[2020-05-27] MEDS: levothyroxine 150 mcg Tablet PO (09:50)
[2020-05-27] MEDS: sotalol 80 mg Tablet 120 MG PO (09:50)
[2020-05-27] MEDS: losartan 50 mg Tablet 25 MG PO (09:50)
[2020-05-27] MEDS: apixaban 5 mg Tablet PO (09:50)
--- NOTE | 2020-05-27 10:51 | P.DS_ITS ---
Discharge Providers Date of Admission: 05/24/20 06:07 Date of Discharge: May 27, 2020 Attending Provider at Admission: Cory Valdivia Attending Provider at Discharge: Rick Luna MD Consults: Cardiology: Dr. Beatty Primary Care Provider: Eber Judge MD Diagnoses at Discharge Discharge Diagnosis (1) Cerebrovascular accident: Status: Acute Qualifiers: CVA mechanism: embolism Laterality of affected vessel: right Precerebral and cerebral artery: middle cerebral artery Qualified Code(s): I63.411 - Cerebral infarction due to embolism of right middle cerebral artery (2) A-fib: Status: Acute Qualifiers: Atrial fibrillation type: paroxysmal Qualified Code(s): I48.0 - Paroxysmal atrial fibrillation (3) Essential hypertension: Status: Acute (4) Diabetes mellitus: Status: Acute Qualifiers: Diabetes mellitus complication status: without complication Diabetes mellitus longterm insulin use: without termite 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 fib ablationsx2 (last one in 2011) on Eliquis and Sotalol. He follows up with Dr. Galvez at [facility]. He is complaints with medications. He presented with left upper and lower expremity weakness, facial weakness and slurred speech on 05/25. NIHSS 5 and no tPA d/t unclear time of onset. 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 His laboratory workup showed a WBC of 3.3, hemoglobin of 12.1, hematocrit 37.7 and platelet count of 140. sodium 132, potassium 3.9, chloride 95, bicarb 25, BUN 14 and creatinine is 0.7. Glucose 165. LFTs were within normal limits. Urinalysis showed 4+ glucose and 2+ ketones. Patient was started on aspirin and admitted to the hospital for stroke workup. His HbA1c was 7.1. Echocardiogram was done which showed preserved ejection fraction, mild AI without any evidence of LV thrombus. MRI brain showed 12 mm area of right hemipons and a tiny area in acute lacunar infarct. CTA head and neck showed over 70% stenosis in the right ICA and mild left ICA stenosis. Cardiothoracic surgery was consulted for ICA stenosis and was advised to follow- up as an outpatient. Cardiology was consulted. Patient underwent GÉNESIS to rule out further LV thrombus which was negative for thrombus. Patient worked well with physical therapy. After completion of permissive hypertension is antihypertensives were adjusted. He is been discharged hemodynamically stable condition with advised to follow-up with his primary care provider in next 2 weeks, Dr. Sandhu from neurology next 1 week, Dr. Beatty in next 1 week for further adjustment of antihypertensives. He is advised to follow-up with Dr. Rod for ICA stenosis. He is also advised to monitor his blood pressures daily and maintain a blood pressure diary. Physical Exam Narrative: EXAM NARRATIVE: Gen: NAD HEENT/Neck: PEERL, No JVD. 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, Left UE 4-/5,poor tailercpa; left LE 4+/5; slurred speech EXt: No edema, cyanosis Discharge Data Data Completed and Pending: Completed Studies During Hospitalization Category Date Time Status CT angio headneck * [id number] Stat Cat Scan 05/24/20 03:[address] head wo con* [id number] Stat Cat Scan 05/24/20 03:[address] head wo/w con [id number] Stat Cat Scan 05/25/20 15:44 Completed XR chest 1V maddison ble [id number] Stat Exams 05/24/20 03:49 Completed MR head wo/w con [id number] Routine MRI 05/24/20 10:41 Completed CV echo complete* [id number] Routine Ultrasound 05/25/20 06:00 Completed Pending at discharge Category Date Time Status CV echo transesop hageal [id number] Routi ne Ultrasound 05/26/20 13:00 Taken Labs from last 24 hours 05/27/20 05/27/20 05/27/20 06:33 04:33 04:33 WBC RBC Hgb Hct MCV MCH MCHC RDW Plt Count MPV Neut % (Auto) Lymph % (Auto) [place] % (Auto) Eos % (Auto) Baso % (Auto) Neut # (Auto) Lymph # (Auto) [place] # (Auto) Eos # (Auto) Baso # (Auto) Nucleated RBC % (a uto) Nucleated RBCs # Sodium 135 L Potassium 3.8 Chloride 101 Carbon Dioxide 25 Anion Gap 12.8 BUN 10 Creatinine 0.5 L GFR Calculation Not Reportable Glucose 185 H POC Glucose 131 Estimat Average Gl ucose 157 Hemoglobin A1c 7.1 H Calculated Osmolal ity 284 L Calcium 8.4 L Total Bilirubin 0.3 AST 10 ALT 12 Alkaline Phosphata se 44 Total Protein 5.7 L Albumin 3.6 Globulin 2.1 SARS-CoV-2 Ag (Rap id) 05/27/20 05/26/20 05/26/20 04:33 20:04 15:57 WBC 4.5 RBC 4.06 L Hgb 11.1 L Hct 35.1 L MCV 86.5 MCH 27.3 L MCHC 31.6 RDW 16.2 H Plt Count 130 MPV 10.6 H Neut % (Auto) 53.5 Lymph % (Auto) 27.4 [place] % (Auto) 16.0 Eos % (Auto) 2.0 Baso % (Auto) 0.9 Neut # (Auto) 2.40 Lymph # (Auto) 1.2 [place] # (Auto) 0.7 Eos # (Auto) 0.1 Baso # (Auto) 0.0 Nucleated RBC % (a uto) 0 Nucleated RBCs # 0.0 Sodium Potassium Chloride Carbon Dioxide Anion Gap BUN Creatinine GFR Calculation Glucose POC Glucose 346 101 Estimat Average Gl ucose Hemoglobin A1c Calculated Osmolal ity Calcium Total Bilirubin AST ALT Alkaline Phosphata se Total Protein Albumin Globulin SARS-CoV-2 Ag (Rap id) 05/26/20 05/26/20 13:55 11:00 WBC RBC Hgb Hct MCV MCH MCHC RDW Plt Count MPV Neut % (Auto) Lymph % (Auto) [place] % (Auto) Eos % (Auto) Baso % (Auto) Neut # (Auto) Lymph # (Auto) [place] # (Auto) Eos # (Auto) Baso # (Auto) Nucleated RBC % (a uto) Nucleated RBCs # Sodium Potassium Chloride Carbon Dioxide Anion Gap BUN Creatinine GFR Calculation Glucose POC Glucose 122 Estimat Average Gl ucose Hemoglobin A1c Calculated Osmolal ity Calcium Total Bilirubin AST ALT Alkaline Phosphata se Total Protein Albumin Globulin SARS-CoV-2 Ag (Rap id) Negative Vitals: Last Vital Signs Temp 97.8 F 05/27/20 07:08 Pulse 65 05/27/20 07:08 Resp 16 05/27/20 07:08 BP 185/91 05/27/20 09:50 Pulse Ox 97 05/27/20 07:08 Discharge Plan Discharge Patient Disposition: Home Health Service Condition: Stable Prescriptions: New atorvastatin 40 mg Tablet 80 mg PO BEDTIME Qty: 30 RF: 0 aspirin 325 mg Tablet 325 mg PO DAILY Qty: 30 RF: 0 Continued Eliquis 5 mg tablet 5 mg PO BID Qty: 180 RF: 3 canagliflozin [Invokana] 300 mg tablet 300 mg PO DAILY Qty: 90 RF: 3 clonazepam 0.5 mg tablet 0.5 mg PO TID PRN (Reason: Anxiety) Qty: 90 RF: 3 Januvia 100 mg tablet 100 mg PO DAILY Qty: 30 RF: 3 sotalol 120 mg tablet 120 mg PO BID RF: 0 levothyroxine [Synthroid] 150 mcg tablet 150 mcg PO DAILY RF: 0 terbinafine HCl 250 mg tablet 250 mg PO BEDTIME RF: 0 Changed irbesartan 75 mg tablet 150 mg PO DAILY Qty: 90 RF: 3 Discharge Orders: Discharge Order (Routine); Ordered 05/27/20 Ordered By: Rick Luna Other Ambulatory Orders: DME: Nehemias (Order) Location: None Selected Ordered By: Rick Luna Referrals: Kamilla Sandhu MD [Physician] - 7-10 days (You have a Neurology followup with [place]. Sandhu [place] [facility] on June 10 at 3:30pm) Eber Judge MD [Primary Care Provider] - 7-10 days (You have a hospital followup with Dr. Judge at [facility] on June 10 at 10:30am) Cisco Rod MD [Physician] - 7-10 days (You have a followup with Dr. Rod at [facility] on June 03 at 11:30am) Bernadine Beatty MD [Physician] - 7-10 days (You have a cardiology follow up with Dr. Beatty [place] [facility] onTJune 01 at 12:30pm ) Discharge Diet: Advance as tolerated, Cardiac and Diabetic Discharge Activity: Resume usual activity and Increase activity as tolerated Patient Instructions: Type 2 Diabetes, Aspirin (By mouth), Atorvastatin (By mouth), Hypertension, Atrial Fibrillation (DC), Self Care Measures After a Stroke (DC) Activity Restrictions/Additional Instructions: Please follow-up with your primary provider within next 2 weeks. Please follow-up with Dr. Sandhu from neurology in 1 week, Dr. Rod from cardiothoracic surgery for right ICA stenosis within next [address] Beatty from cardiology within next 1 week. Please maintain a blood pressure diary with checking blood pressures twice daily. Please take your blood pressure diary when you are following up with cardiology. Please recheck lipid panel within 3 months. Discharge Date/Time: 05/27/20 14:45 Discharge Attestations Time Spent in Discharge Care*: greater than 30 min Specific Discharge Activities: Specific discharge activities: educating patient, discussing with pcp/other providers, discussing with child support case officer/social workers/dc planners, documenting/other paperwork and evaluating patient/reviewing data Status at Discharge: Cognitive status at discharge: cognitively intact , Behavioral status at discharge: cooperative , Functional status at discharge: uses cane/walker Overall status at discharge: patient is progressing back to baseline Quality Metrics Clinical Quality Measures During this hospital stay, did patient experience: Stroke Contraindication to Antithrombotic: Antithrombotic prescribed Contraindication to Anticoagulation: Anticoagulation prescribed Contraindication to Statin: Statin prescribed Contraindication to tPA: Treatment not indicated Rehab services assessed: Activities of daily living assessment Coding Level of Care Code Acute Education General Manager for [employer] [place] Diagnoses Cerebrovascular accident I63.411 CVA mechanism: embolism Laterality of affected vessel: right Precerebral and cerebral artery: middle cerebral artery A-fib I48.0 Atrial fibrillation type: paroxysmal Essential hypertension I10 Diabetes mellitus E11.9 Diabetes mellitus complication status: without complication 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
[2020-05-27 11:07] VITALS: BP 140/76; PULSE 63; RESP 18; TEMP 36.3; O2SAT 94
[2020-05-27 11:24] LABS: Glucose Point of Care 149 mg/dL (70-110)
--- NOTE | 2020-05-27 11:56 | DCPLANNER ---
IMM completed on 05/27/2020 @ 6679. Copy of rights given to pt.
--- NOTE | 2020-05-27 12:17 | ANE.PACU2 ---
Inpatient post-anesthesia follow up: Airway intact: Yes Vital signs: Temperature 97.3 F Pulse Rate [Monito r] 69 Pulse Rate 63 Respiratory Rate 18 Blood Pressure [Ri ght Arm] 175/87 Blood Pressure 140/76 Pulse Oximetry 94 Oxygen Delivery Me thod Room Air Oxygen Flow Rate Fraction of Inspir ed Oxygen Hydration adequate: Yes Nausea and vomiting: No Pain level: 1 Mental status: Baseline
--- NOTE | 2020-05-27 13:43 | PC.NURSE ---
DISCHARGE INSTRUCTIONS GIVEN, ALL QUESTIONS ANSWERED AT THIS TIME. AWAITING RIDE.
--- NOTE | 2020-05-27 14:45 | PC.NURSE ---
RIDE ARRIVED. PT DRESS WITH ASSISTANCE FROM NURSE AID. PT TRANSPORTED TO PRIVATE VEHICLE IN WHEELCHAIR.
== END 2020-05-27 14:45 | disposition home health service (06) | DRG 65 ==
LOC: ER 06:03 → CSU 06:20
PROVIDERS: Emergency Medicine; Internal Medicine Cardiovascular Disease; Admitting Provider Hospitalist; PCP Internal Medicine; Visit Provider Student in an Organized Health Care Education/Training Program
PROC: B24BZZ4 Ultrasonography of Heart with Aorta, Transesophageal (ICD-10-PCS; CPT 93312; principal; 2020-05-26 16:00)
DX: I63.411 Cerebral infarction due to embolism of right middle cerebral artery (principal); G81.94 Hemiplegia, unspecified affecting left nondominant side; R29.810 Facial weakness; R29.705 NIHSS score 5; I10 Essential (primary) hypertension; E03.9 Hypothyroidism, unspecified; E11.9 Type 2 diabetes mellitus without complications; I65.21 Occlusion and stenosis of right carotid artery; I48.0 Paroxysmal atrial fibrillation; Z87.891 Personal history of nicotine dependence; I35.1 Nonrheumatic aortic (valve) insufficiency; Z79.01 Long term (current) use of anticoagulants; Z79.84 Long term (current) use of oral hypoglycemic drugs
CPT/HCPCS: 12345; 36416; 70450; 70460; 70470; 70496; 70498; 70553; 71045; 80053; 80061; 81003; 82962; 83036; 85025; 85610; 85730; 87426; 92507; 92523; 92526; 92610; 93005; 93306; 93312; 93320; 93325; 96372; 97110; 97116; 97161; 97165; 97530; 97535; 99282; A9579; J1815; J2405; J2704; J3010; J3490; J7030; J7040; Q9967

== ENCOUNTER 2020-05-31 13:45 | Inpatient (IN) | payer MEDICARE, OTHER, SELFPAY ==
[2020-05-31] VITALS (7 sets, daily range): BP systolic 122–166; BP diastolic 56–84; PULSE 69–79; RESP 14–23; TEMP 36.6–37.2; O2SAT 94–96; BMI 28.8
--- NOTE | 2020-05-31 14:38 | ECG_ITS ---
[facility] Test Date: 2020-05-31 Pat Name: Ismael Guevara Department: Room: Gender: Male Clerical Assistant: : 1940 Requested By: Reji Onofre Order Number: [id number] [place] MD: Bernadine Beatty M.D. Measurements Intervals [place] Rate: 75 P: 53 NC: 203 QRS: 55 QRSD: 102 T: 67 QT: 428 QTc: 479 Interpretive Statements SINUS RHYTHM WITH FIRST DEGREE AV BLOCK Compared to ECG 05/24/2020 03:44:15 First degree AV block no longer present Electronically Signed On 05-31-2020 18:41:47 FORMSTONE FITTER by Bernadine Beatty M.D. [id number]
--- NOTE | 2020-05-31 14:38 | CT_ITS ---
WS: [id number] CT HEAD TECHNIQUE: Noncontrast CT of the head obtained from the skullbase to the vertex. CLINICAL INFORMATION: Symptoms of Acute Stroke COMPARISON: May 25, 2020 and MRI May 24, 2020 DLP: 909.[address] scans at [facility] use at least one of these dose optimization techniques: automat ed exposure control; mA and/or kV adjustment per patient size (includes targeted exams where dose is matched to clinical indication); or iterative reconstruction. FINDINGS: No evidence of intracranial hemorrhage or mass effect. Ventricular system and basal cisterns are adan nt. Mild small vessel changes with mild parenchymal volume loss. Small amount of edema in the right p ons consistent with previously described right parasagittal pontine infarct described on the recent M RI head. No extra-axial fluid collections. No evidence of mass or mass effect. Paranasal sinuses and mastoid air cells are well aerated. .Normal visualized soft tissues. CT/CT head wo con* [id number] IMPRESSION: 1. No evidence of intracranial hemorrhage or mass effect. 2. Mild edema in the right see consistent with recently described infarct on the prior MRI. No mass effect. 3. Mild small vessel changes. Mild parenchymal volume loss. 4. No other significant findings. Notified Reji Acosta DO at 05/31/2020 3:51 PM.
--- NOTE | 2020-05-31 15:46 | W.ED.NEUROSD ---
HPI - Neuro Symptoms/Deficit General: Chief Complaint: Neuro Symptoms/Deficit Stated Complaint: Stroke Complications Worsening Time Seen by Provider: 05/31/20 13:55 History of Present Illness: HPI Narrative: 79-year-old male recently had a stroke was discharged home he is on Eliquis and aspirin and then he began having symptoms that are worsening 2 days ago. At his previous presentation for stroke he was on Eliquis that time as well and was not started on any TPA. He notices significant weakening in the same distribution as previously with difficulty with speech weakness in the left hand and left leg. His thought process is clear and he answers questions appropriately he is very aware of his deficits and is able to follow all commands. Onset (ago): day(s) (2) Timing confirmed by: spouse Location: speech, left arm and left leg History of same: Yes Severity: severe Quality: weak Relieving factors: none Exacerbating factors: none Context: gradual onset On Anticoagulants: Yes Associated symptoms: Deny chest pain, cough, diaphoresis, fevers/chills, headache(s), anorexia, malaise, nausea, seizures, short of breath, syncope, tingling, vertigo, vomiting or weakness Treatments Prior to Arrival: Aspirin and other medication Review of Systems Const: Denies: malaise or diaphoresis ENMT: Denies: throat pain, ear or mastoid pain, nasal discharge or nasal congestion Card: Denies: chest pain or syncope Resp: Denies: dyspnea, productive cough or non-productive cough GI: Denies: nausea or vomiting : Denies: flank pain, dysuria, urinary frequency or urinary urgency Skin/Breast: Denies: rash or pruritus Neuro: Denies: headache(s) or vertigo PFS ED PFSH: Medical History (Updated 06/01/20 @ 17:40 by Reji Acosta DO) A-fib Diabetes mellitus Electrical isolation of left atrial appendage after cardiac ablation procedure for atrial fibrillation Hypothyroid Onychodystrophy Surgical History History of tonsillectomy and adenoidectomy Family History Other CAD (coronary artery disease) Denies family history of Diabetes Cancer Social History Smoking and tobacco status: former smoker Alcohol intake: never History of recent travel: No Current gender identity: Male NIH stroke score NIHSS: Level Of Consciousness - 1a: 0 Level Of Consciousness Questions - 1b: Both Correct Level Of Consciousness Commands - 1c: Both Correct Best Gaze - 2: Normal Visual Edmond - 3: No Visual Loss Facial Palsy - 4: Minor Paralysis Motor Arm Right - 5: No Drift Motor Arm Left - 5: Effort Against Leopold Motor Leg Right - 6: No Drift Motor Leg Left - 6: Effort Against Leopold Limb Ataxia - 7: Present In Two Limbs Sensory - 8: Mild To Moderate Loss Best Language - 9: No Aphasia Dysarthia - 10: Mild/Moderate Dysarthia Extinction And Inattention - 11: 0 Score: Total Score: 9 Physical Exam Const: COMMON NORMALS: no acute distress GENERAL APPEARANCE: cooperative and comfortable ORIENTATION/CONSCIOUSNESS: Yes awake, Yes oriented to person, Yes oriented to place and Yes oriented to time HENMT: COMMON NORMALS: normocephalic, atraumatic and hearing grossly normal bilaterally HEAD & SCALP: normocephalic and atraumatic Eye: COMMON NORMALS: Equal, round and reactive pupils present, EOMs intact bilaterally, conjunctivae normal and no scleral icterus CONJUNCTIVA: Yes conjunctivae normal PUPIL: Yes Equal, round and reactive pupils present Neck/C-Spine: COMMON NORMALS: full ROM, no lymphadenopathy, supple and no JVD Lymph: LYMPHATIC: no lymphadenopathy noted and no lymphedema noted Resp: COMMON NORMALS: normal respiratory effort, No retractions, No use of accessory muscles and clear to auscultation bilaterally AUSCULTATION: clear to auscultation bilaterally Cardio: COMMON NORMALS: no JVD, regular rate, regular rhythm and No murmurs present (Cardio) RATE: regular rate RHYTHM: regular rhythm GI: COMMON NORMALS: Soft to palpation and No hepatosplenomegaly present AUSCULTATION: Yes normoactive bowel sounds PALPATION: Yes Soft to palpation, No Tenderness to palpation present (GI), No Guarding due to palpation present (GI) and Yes No hepatosplenomegaly present Extremity: COMMON NORMALS: normal to inspection, capillary refill normal, no clubbing, cyanosis or edema, no calf tenderness and no pedal edema Neuro: SENSORIUM/ORIENTATION: Yes oriented to person, Yes oriented to place and Yes oriented to time Skin: COMMON NORMALS: no rashes or lesions noted GENERAL SKIN EXAM: no rashes or lesions noted Course Vital Signs: Vital signs: Vital Signs Temperature 99.8 F H 06/01/20 16:00 Pulse Rate 78 06/01/20 16:00 Respiratory Rate 24 H 06/01/20 16:00 Blood Pressure 148/72 06/01/20 16:00 Pulse Oximetry 95 06/01/20 16:00 MDM - Neuro Symptoms/Deficit MDM Narrative: Medical decision making narrative: Discussed with the patient and his . We will go ahead and admit consult neurology. He has a known stenosis in the right carotid artery. The timeframe and his anticoagulants he is neither a candidate for anticoagulants or any kind of intervention emergently. Lab Data: Labs: Lab Results 05/31/20 05/31/20 05/31/20 Range/Units 15:56 16:11 16:11 WBC 3.9 L (4.0-10.0) 10^3/ uL RBC 4.41 (4.1-5.3) 10^6/u L Hgb 12.2 (11.7-16.6) g/dL Hct 38.3 L (42.0-52.0) % MCV 86.8 (80-94) fL MCH 27.7 L (28.0-34.0) pg MCHC 31.9 (30.0-36.0) g/dL RDW 16.2 H (12.1-15.1) % Plt Count 143 (130-400) 10^3/c mm MPV 11.0 H (7.4-10.4) fL Neut % (Auto) 56.1 % Lymph % (Auto) 27.4 % [place] % (Auto) 14.2 % Eos % (Auto) 1.0 % Baso % (Auto) 1.0 % Neut # (Auto) 2.21 (1.8-7.7) 10^3/u L Lymph # (Auto) 1.1 (0.8-4.8) 10^3/u L [place] # (Auto) 0.6 (0.2-0.9) 10^3/u L Eos # (Auto) 0.0 (0.0-0.8) 10^3/u L Baso # (Auto) 0.0 (0.0-0.1) 10^3/u L Nucleated RBC % (a uto) 0 % Nucleated RBCs # 0.0 /100WBC PT 14.20 (12.1-14.9) SECO NDS INR 1.07 (0.8-1.2) APTT 31.0 (23.9-36.7) SECO NDS Sodium (136-145) mmol/L Potassium (3.5-5.1) mmol/L Chloride (98-107) mmol/L Carbon Dioxide (22-29) mmol/L Anion Gap (5-19) BUN (8-23) mg/dL Creatinine (0.7-1.2) mg/dL GFR Calculation Glucose (65-115) mg/dL Calculated Osmolal ity (285-295) mOsm/k g Calcium (8.5-10.5) mg/dL Total Bilirubin (0.15-1.2) mg/dL AST (0-40) U/L ALT (0-41) U/L Alkaline Phosphata se (40-130) IU/L Total Protein (6.6-8.7) g/dL Albumin (3.5-5.2) g/dL Globulin (1.3-4.6) g/dL Urine Color Straw (Yellow) Urine Appearance Clear (CLEAR) Urine pH 5 (5-7) Ur Specific Gravit y 1.020 (1.005-1.030) Urine Protein Neg (Negative) Urine Glucose (UA) 4+ H (Normal) Urine Ketones 3+ H (Negative) Urine Blood Neg (Negative) Urine Nitrate Negative (Negative) Urine Bilirubin Neg (Negative) Urine Urobilinogen Norm (Negative) mg/dL Ur Leukocyte Rosalba ase Negative (Negative) 05/31/20 Range/Units 16:11 WBC (4.0-10.0) 10^3/ uL RBC (4.1-5.3) 10^6/u L Hgb (11.7-16.6) g/dL Hct (42.0-52.0) % MCV (80-94) fL MCH (28.0-34.0) pg MCHC (30.0-36.0) g/dL RDW (12.1-15.1) % Plt Count (130-400) 10^3/c mm MPV (7.4-10.4) fL Neut % (Auto) % Lymph % (Auto) % [place] % (Auto) % Eos % (Auto) % Baso % (Auto) % Neut # (Auto) (1.8-7.7) 10^3/u L Lymph # (Auto) (0.8-4.8) 10^3/u L [place] # (Auto) (0.2-0.9) 10^3/u L Eos # (Auto) (0.0-0.8) 10^3/u L Baso # (Auto) (0.0-0.1) 10^3/u L Nucleated RBC % (a uto) % Nucleated RBCs # /100WBC PT (12.1-14.9) SECO NDS INR (0.8-1.2) APTT (23.9-36.7) SECO NDS Sodium 134 L (136-145) mmol/L Potassium 4.0 (3.5-5.1) mmol/L Chloride 97 L (98-107) mmol/L Carbon Dioxide 21 L (22-29) mmol/L Anion Gap 20.0 H (5-19) BUN 19 (8-23) mg/dL Creatinine 0.7 (0.7-1.2) mg/dL GFR Calculation Not Reportable Glucose 118 H (65-115) mg/dL Calculated Osmolal ity 281 L (285-295) mOsm/k g Calcium 8.7 (8.5-10.5) mg/dL Total Bilirubin 0.3 (0.15-1.2) mg/dL AST 13 (0-40) U/L ALT 16 (0-41) U/L Alkaline Phosphata se 48 (40-130) IU/L Total Protein 6.3 L (6.6-8.7) g/dL Albumin 3.9 (3.5-5.2) g/dL Globulin 2.4 (1.3-4.6) g/dL Urine Color (Yellow) Urine Appearance (CLEAR) Urine pH (5-7) Ur Specific Gravit y (1.005-1.030) Urine Protein (Negative) Urine Glucose (UA) (Normal) Urine Ketones (Negative) Urine Blood (Negative) Urine Nitrate (Negative) Urine Bilirubin (Negative) Urine Urobilinogen (Negative) mg/dL Ur Leukocyte Rosalba ase (Negative) Discharge Plan Discharge Patient Disposition: Admitted As Inpatient Admit Provider: Ofe Fuchs Clinical Impression: Cerebrovascular accident, Diabetes mellitus, Essential hypertension, Right pontine stroke, Carotid artery stenosis Condition: Stable Coding Level of Care Code ED Consumer Education Specialist for [place]
[2020-05-31 16:27] LABS: Add Urine Microscopic? NO
[2020-05-31 16:27] LABS: Hematocrit 38.3 % (42.0-52.0); Hemoglobin 12.2 g/dL (11.7-16.6); Lymphocytes # 1.1 10^3/uL (0.8-4.8); Lymphocytes % 27.4 %; Mean Corpuscular HGB Conc 31.9 g/dL (30.0-36.0); Mean Corpuscular Hemoglobin 27.7 pg (28.0-34.0); Mean Corpuscular Volume 86.8 fL (80-94); Monocytes # 0.6 10^3/uL (0.2-0.9); Monocytes % 14.2 %; Neutrophils # 2.21 10^3/uL (1.8-7.7); Neutrophils % 56.1 %; Nucleated Red Blood Cells % 0 %; Platelet Count 143 10^3/cmm (130-400); Red Blood Count 4.41 10^6/uL (4.1-5.3); Red Cell Distribution Width 16.2 % (12.1-15.1); White Blood Count 3.9 10^3/uL (4.0-10.0)
[2020-05-31 16:31] LABS: Bilirubin Urine Neg (Negative); Blood Urine Neg (Negative); Glucose Urine UA 4+ (Normal); Ketones Urine 3+ (Negative); Leukocyte Esterase Urine Negative (Negative); Nitrate Urine Negative (Negative); Protein Urine Neg (Negative); Urine Appearance Clear (CLEAR); Urine Color Straw (Yellow); Urobilinogen Urine Norm (Negative); pH Urine 5 (5-7)
[2020-05-31 16:48] LABS: INR 1.07 (0.8-1.2)
[2020-05-31 16:50] LABS: Alanine Aminotransferase 16 U/L (0-41); Albumin Level 3.9 g/dL (3.5-5.2); Alkaline Phosphatase 48 IU/L (40-130); Aspartate Amino Transferase 13 U/L (0-40); Blood Urea Nitrogen 19 mg/dL (8-23); Calcium 8.7 mg/dL (8.5-10.5); Carbon Dioxide 21 mmol/L (22-29); Chloride 97 mmol/L (98-107); Globulin 2.4 g/dL (1.3-4.6); Glucose 118 mg/dL (65-115); Osmolality Calculated 281 mOsm/kg (285-295); Sodium 134 mmol/L (136-145); Total Bilirubin 0.3 mg/dL (0.15-1.2); Total Protein 6.3 g/dL (6.6-8.7)
--- NOTE | 2020-05-31 17:40 | PM.HP ---
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 He has a PMHx of HTN, hypothyroidism, DM-2, chronic atrial fibrillation with h/o multiple cardioversions and A. fib ablationsx2 (last one in 2011) on Eliquis and Sotalol. He follows up with Dr. Galvez at [facility]. He is complaints with medications. He presented on 05/25 with left upper and lower expremity weakness, facial weakness and slurred speech on 05/25. NIHSS 5 and no tPA d/t unclear time of onset. 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 Echocardiogram including GÉNESIS was done which showed preserved ejection fraction, mild AI without any evidence of LV thrombus. MRI brain showed 12 mm area of right hemipons and a tiny area in acute lacunar infarct. CTA head and neck showed over 70% stenosis in the right ICA and mild left ICA stenosis. Cardiothoracic surgery was consulted for ICA stenosis and was advised to follow-up as an outpatient. At time of discharge his motor strength was noted to be 4/5 on the left side. He returned to the ER today with c/o weakness over the left side again starting 2 days ago, slowly progresed to the point of inability to move left arm and left leg at all. I notice mild left sided facial flatteneing also, however per at bedside, this is unchanged since last discharge. SBP at home ranging between 130-15-0 systolic. Complaint with ASA 325 and Eliquis. No c/o headcahe, visual disturbances or vomiting. No c/o fever. CT head No evidence of intracranial hemorrhage or mass effect. Mild edema in the right see consistent with recently described infarct on the prior MRI. No mass effect. Review of Systems General: Reports: 10 or more systems reviewed and unremarkable except in HPI and below Const: Denies: fever(s), chills or body aches Eyes: Denies: change in vision, blurry vision or photophobia ENMT: Reports: hoarseness; Denies: throat pain, enlarged tonsils, odynophagia or nasal congestion Card: Denies: chest pain, palpitations, irregular heart rhythm, edema, swelling of feet/ankles, lightheadedness, pre-syncope, dyspnea on exertion or orthopnea Resp: Denies: dyspnea, productive cough, non-productive cough, wheezing, stridor, pain on inspiration, change in phlegm color, hemoptysis or chest congestion GI: Denies: abdominal pain, nausea, vomiting, hematemesis, coffee ground emesis, dysphagia, heartburn, diarrhea, constipation, GI cramping, change in stool character, hematochezia or melena : Denies: flank pain, dysuria, urinary frequency, urinary urgency, urinary hesitancy or hematuria Musc: Denies: neck pain, back pain, extremity pain, joint swelling, joint warmth or deformity Neuro: Reports: weakness in extremities, sensory changes, difficulty walking and Slurred speech present; Denies: headache(s), numbness in extremities, frequent falls, dizziness, vertigo, behavioral changes or seizure-like activity Psych: Denies: anxiety, depression, suicidal ideation or homicidal ideation Endo: Denies: polyuria, polydipsia, tired all the time, cold intolerance or hot flashes Sammy/Lymph: Denies: easy bruising or easy bleeding Medications/Allergies Home Medications Medication Instructions Recorded Confirmed Last Taken Type apixaban 5 mg tablet 5 mg PO BID #180 tab 08/11/19 05/31/20 05/31/20 Rx levothyroxine [Synthroid] 150 mcg PO DAILY 09/01/19 05/31/20 05/31/20 History sotalol 120 mg PO BID 09/01/19 05/31/20 05/31/20 History canagliflozin 300 mg tablet 300 mg PO DAILY #90 tab 02/09/20 05/31/20 05/31/20 Rx clonazepam 0.5 mg tablet 0.5 mg PO TID PRN #90 tab 03/12/20 05/31/20 Unknown Rx sitagliptin 100 mg tablet 100 mg PO DAILY #30 tab 04/16/20 05/31/20 05/31/20 Rx terbinafine HCl 250 mg PO BEDTIME 05/24/20 05/31/20 05/30/20 History aspirin 325 mg PO DAILY #30 tab 05/27/20 05/31/20 05/31/20 Rx atorvastatin 80 mg PO BEDTIME #30 tab 05/27/20 05/31/20 05/30/20 Rx irbesartan 150 mg PO DAILY #90 tab 05/27/20 05/31/20 05/31/20 Rx vit C,X-Zk-fuevi-lutein-zeaxan 1 tab PO BID 05/31/20 05/31/20 05/31/20 History [PreserVision AREDS-2] Allergies Allergy/AdvReac Type Severity Reaction Status Date / Time rivaroxaban [From Xarelto] AdvReac nausea Verified 05/31/20 13:51 PFSH Acute PFSH: Medical History (Updated 06/01/20 @ 08:49 by Kamilla Sandhu MD) A-fib Diabetes mellitus Electrical isolation of left atrial appendage after cardiac ablation procedure for atrial fibrillation Hypothyroid Onychodystrophy Surgical History History of tonsillectomy and adenoidectomy Family History Other CAD (coronary artery disease) Denies family history of Diabetes Cancer Social History Smoking and tobacco status: former smoker Alcohol intake: never History of recent travel: No Current gender identity: Male Vitals/I&O/Wt Last Vital Signs Temp 98.3 F 05/31/20 13:48 Pulse 79 05/31/20 17:19 Resp 23 H 05/31/20 17:19 BP 159/69 05/31/20 17:19 Pulse Ox 96 05/31/20 17:19 Weight last 48 hrs Weight 88.451 kg Physical Exam Const: COMMON NORMALS: no acute distress, average body habitus, patient oriented x3, no limitations, healthy appearing, alert and well nourished HENMT: COMMON NORMALS: normocephalic and atraumatic HEAD & SCALP: normocephalic and atraumatic Eye: COMMON NORMALS: Equal, round and reactive pupils present, EOMs intact bilaterally, conjunctivae normal and no scleral icterus CONJUNCTIVA: Yes conjunctivae normal PUPIL: Yes Equal, round and reactive pupils present Neck/C-Spine: COMMON NORMALS: no JVD Resp: COMMON NORMALS: normal respiratory effort, No retractions, No use of accessory muscles, clear to auscultation bilaterally and percussion normal AUSCULTATION: clear to auscultation bilaterally PERCUSSION: percussion normal Cardio: COMMON NORMALS: no JVD, regular rate, regular rhythm, S1 normal heart sound present, S2 normal heart sound present, No gallops present (Cardio), No clicks present (Cardio), No murmurs present (Cardio), No rub (Cardio) and Peripheral pulses 2+ throughout RATE: regular rate RHYTHM: regular rhythm HEART SOUNDS: S1 normal heart sound present and S2 normal heart sound present PERIPHERAL PULSES: Peripheral pulses 2+ throughout GI: COMMON NORMALS: Normal to inspection, nondistended, normoactive bowel sounds present, Soft to palpation, non-tender, No hepatosplenomegaly present, no masses and no bruits PALPATION: Yes Soft to palpation and Yes No hepatosplenomegaly present Extremity: COMMON NORMALS: normal to inspection, full ROM, capillary refill normal, no joint enlargement, no clubbing, cyanosis or edema, no calf tenderness and no pedal edema Neuro: COMMON NORMALS: patient oriented x3 and CN's II-XII intact bilaterally SENSORIUM/ORIENTATION: Yes alert OTHER: left arm ad left leg 1/5, mild facial flattenig noted over left face Psych: COMMON NORMALS: mental status grossly normal, Normal thought process present, cooperative, normal affect, speech normal, activity/motor behavior normal, denies hallucinations, denies homicidal ideation and denies suicidal ideation SPEECH: Yes normal speech THOUGHT PROCESS: Normal thought process present Skin: COMMON NORMALS: no rashes or lesions noted, no wounds, turgor normal, no jaundice, no petechiae and no mottling GENERAL SKIN EXAM: no rashes or lesions noted and turgor normal Data : 06/01/20 04:43 06/01/20 04:43 A&P Assessment and plan (1) Right pontine stroke: Status: Acute (2) Cerebrovascular accident: Status: Acute Qualifiers: CVA mechanism: embolism Laterality of affected vessel: right Precerebral and cerebral artery: middle cerebral artery Qualified Code(s): I63.411 - Cerebral infarction due to embolism of right middle cerebral artery (3) Diabetes mellitus: Status: Acute Qualifiers: Diabetes mellitus type: type 2 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: without shelter use Diabetes mellitus complication status: without complication Qualified Code(s): E11.9 - Type 2 diabetes mellitus without complications (4) A-fib: Status: Acute Qualifiers: Atrial fibrillation type: paroxysmal Qualified Code(s): I48.0 - Paroxysmal atrial fibrillation (5) Essential hypertension: Status: Acute Additional A&P Information # Rcent right pontine CVA with left hemiparesis which had resolved by last hopsital discharge, however now with recurrent progressive symptoms over the last 2-[address] head with known recent CVA with surrounding edema, no midline shift Consult with Dr. Sandhu, case discussed Hold off on MRI until neurology assessment IVF 125 cc/hr to maintain good cereral blood flow Hold irbesartan as allowing for permissive HTN Continue sotalol for now as discontonuing this suddenly may precipitate arrhytmia Bedrest, lay flat PT/OT/ speech eval NPO until dysphagia screen Patient on ASA 325 and Eliquis Recent w/up incl GÉNESIS negative for thrombus, has knonw carotid artery stenosis 70% Full code DVT ppX: Eliquis to continue Attestations Medical Necessity Statement*: Anticipate >2 Midnight admission for evaluation and management of recurrent CVA Coding Level of Care Code Acute Academic Associate for g Fwd Diagnoses Right pontine stroke I63.50 Cerebrovascular accident I63.411 CVA mechanism: embolism Laterality of affected vessel: right Precerebral and cerebral artery: middle cerebral artery Diabetes mellitus E11.9 Diabetes mellitus type: type 2 Diabetes mellitus shelter insulin use: without watermelon 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
[2020-05-31] MEDS: apixaban 5 mg Tablet PO (18:18)
[2020-05-31] MEDS: sotalol 80 mg Tablet 120 MG PO (18:18)
[2020-05-31] MEDS: sodium chloride 0.9% 1,000 ML 125 ML IV (18:18)
--- NOTE | 2020-05-31 19:24 | PC.NURSE ---
verbal instructions given By Dr velazco to maintain elevated bp if grater than 220 sys call night physician
--- NOTE | 2020-05-31 19:56 | PC.NURSE ---
Patient is able to slightly move left arm and slightly move left leg, but cannot fully lift. 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 Normal strength to right hand, arm, and leg.
[2020-05-31] MEDS: atorvastatin 40 mg Tablet 80 MG PO (20:57)
[2020-06-01] MEDS: sodium chloride 0.9% 1,000 ML 125 ML IV ×3 (01:54→18:17)
--- NOTE | 2020-06-01 02:10 | PC.NURSE ---
Patient is complaining of urinary frequency, urgency, and hesitancy. Dr. Santos notified. UA ordered.
[2020-06-01 03:42] VITALS: BP 152/80; PULSE 74; RESP 22; O2SAT 96
[2020-06-01 05:33] LABS: Eosinophils % 0.7 %; Hemoglobin 12.1 g/dL (11.7-16.6); Lymphocytes % 25.4 %; Mean Corpuscular Volume 87.1 fL (80-94); Mean Platelet Volume 10.4 fL (7.4-10.4); Monocytes # 0.6 10^3/uL (0.2-0.9); Monocytes % 14.1 %; Neutrophils # 2.37 10^3/uL (1.8-7.7); Neutrophils % 58.6 %; Nucleated Red Blood Cells % 0 %; Platelet Count 124 10^3/cmm (130-400); Red Blood Count 4.48 10^6/uL (4.1-5.3); Red Cell Distribution Width 16.1 % (12.1-15.1); White Blood Count 4.1 10^3/uL (4.0-10.0)
[2020-06-01 05:34] LABS: Add Urine Microscopic? NO
[2020-06-01 06:08] LABS: Alanine Aminotransferase 16 U/L (0-41); Albumin Level 3.8 g/dL (3.5-5.2); Alkaline Phosphatase 47 IU/L (40-130); Anion Gap 24.9 (5-19); Aspartate Amino Transferase 13 U/L (0-40); Blood Urea Nitrogen 14 mg/dL (8-23); Calcium 8.4 mg/dL (8.5-10.5); Carbon Dioxide 16 mmol/L (22-29); Chloride 100 mmol/L (98-107); Globulin 2.5 g/dL (1.3-4.6); Glucose 101 mg/dL (65-115); Osmolality Calculated 285 mOsm/kg (285-295); Potassium 3.9 mmol/L (3.5-5.1); Sodium 137 mmol/L (136-145); Total Bilirubin 0.4 mg/dL (0.15-1.2); Total Protein 6.3 g/dL (6.6-8.7)
[2020-06-01 06:17] LABS: Bilirubin Urine Neg (Negative); Blood Urine Neg (Negative); Glucose Urine UA 4+ (Normal); Ketones Urine 3+ (Negative); Leukocyte Esterase Urine Negative (Negative); Nitrate Urine Negative (Negative); Protein Urine Neg (Negative); Urine Appearance Clear (CLEAR); Urine Color Yellow (Yellow); Urobilinogen Urine Norm (Negative); pH Urine 5 (5-7)
[2020-06-01 08:00] VITALS: BP 144/77; PULSE 75; RESP 19; TEMP 36.9; O2SAT 96
--- NOTE | 2020-06-01 08:00 | PC.NURSE ---
patient resting in bed at time of assessment. pt stated that dr garcia and juan a wanted him to lay flat as much as he could. pt denies any needs at this time. call light within reach.
[2020-06-01] MEDS: sotalol 80 mg Tablet 120 MG PO ×2 (08:20→17:25)
[2020-06-01] MEDS: levothyroxine 150 mcg Tablet PO (08:20)
[2020-06-01] MEDS: aspirin 325 mg Tablet PO (08:20)
[2020-06-01] MEDS: apixaban 5 mg Tablet PO ×2 (08:21→17:26)
--- NOTE | 2020-06-01 08:37 | P.CONIM_ITS ---
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 Statin therapy was added with a atorvastatin 80 mg daily during that hospitalization. He presented with significant left hemiparesis on 05/24/2020 and was not a candidate for TPA because he was on apixaban. Dr. Valdivia called and reviewed the story with me as I was not available for consultation while out on leave. Fortunately, he improved over the course of hospitalization and was able to go home without a walker moving his left side well. Changes made to his regimen including aspirin 325 mg a day along with a atorvastatin 80 mg daily. He was discharged 05/27/2020. He describes gradual worsening of his left hemiparesis in stages over the weekend until he returned yesterday 31 May with worse left hemiparesis, dysarthria and inability to ambulate. He was admitted yesterday afternoon and Dr. Fuchs called me late in the afternoon and I requested that she increase IV fluids and keep him flat. This morning he is able to talk with me and reports that he has not been sleepy. He has not experienced diplopia. He has mild symptoms of aspiration but is able to keep water down and sip water with his medications without choking. He is experiencing urinary frequency on normal saline drip. He is flat. I reviewed his CT angiogram and specifically reviewed the course of both vertebral arteries and the basilar artery. There is no sign of vertebral artery dissection or basilar artery thrombosis. Of course the penetrating vessels of the see cannot be visualized. His MRI from last admission documents a fairly large stroke in the right see just to the right of midline. Additional findings on CT angiogram include tight stenosis of the right internal carotid artery over a short segment. Transesophageal echocardiogram did not show LV thrombus or any other source of cardiogenic stroke. Review of Systems General: Reports: 10 or more systems reviewed and unremarkable except in HPI and below Const: Reports: fatigue; Denies: fever(s), chills or daytime sleepiness Eyes: Denies: change in vision Card: Reports: irregular heart rhythm; Denies: chest pain or dyspnea on exertion Resp: Denies: dyspnea GI: Denies: nausea or vomiting : Reports: urinary frequency; Denies: difficulty urinating Neuro: Reports: weakness in extremities, difficulty walking and Slurred speech present; Denies: headache(s), sensory changes, vertigo or involuntary movements Psych: Denies: depression Meds/Allergies Home Medications and Allergies Home Medications Medication Instructions Recorded Confirmed Last Taken Type apixaban 5 mg tablet 5 mg PO BID #180 tab 08/11/19 05/31/20 05/31/20 Rx levothyroxine [Synthroid] 150 mcg PO DAILY 09/01/19 05/31/20 05/31/20 History sotalol 120 mg PO BID 09/01/19 05/31/20 05/31/20 History canagliflozin 300 mg tablet 300 mg PO DAILY #90 tab 02/09/20 05/31/20 05/31/20 Rx clonazepam 0.5 mg tablet 0.5 mg PO TID PRN #90 tab 03/12/20 05/31/20 Unknown Rx sitagliptin 100 mg tablet 100 mg PO DAILY #30 tab 04/16/20 05/31/20 05/31/20 Rx terbinafine HCl 250 mg PO BEDTIME 05/24/20 05/31/20 05/30/20 History aspirin 325 mg PO DAILY #30 tab 05/27/20 05/31/20 05/31/20 Rx atorvastatin 80 mg PO BEDTIME #30 tab 05/27/20 05/31/20 05/30/20 Rx irbesartan 150 mg PO DAILY #90 tab 05/27/20 05/31/20 05/31/20 Rx vit C,G-Ib-lxlmx-lutein-zeaxan 1 tab PO BID 05/31/20 05/31/20 05/31/20 History [PreserVision AREDS-2] Allergies Allergy/AdvReac Type Severity Reaction Status Date / Time rivaroxaban [From Xarelto] AdvReac nausea Verified 05/31/20 13:51 Current Medications Current Medications Generic Name Dose Route Start Last Admin Trade Name Betina PRN Reason Stop Dose Admin Apixaban 5 mg 05/31/20 18:00 06/01/20 08:21 Apixaban 5 Mg Tablet PO 5 mg BID CHIN Administration Aspirin 325 mg 06/01/20 09:00 06/01/20 08:20 Aspirin 325 Mg Tablet PO 325 mg DAILY CHIN Administration Atorvastatin Calcium 80 mg 05/31/20 21:00 05/31/20 20:57 Atorvastatin 40 Mg Tablet PO 80 mg BEDTIME CHIN Administration Sodium Chloride 1,000 mls @ 125 mls/hr 05/31/20 17:30 06/01/20 01:54 Sodium Chloride 0.9% IV 125 mls/hr .Q8H CHIN Administration Levothyroxine Sodium 150 mcg 06/01/20 09:00 06/01/20 08:20 Levothyroxine 150 Mcg Tablet PO 150 mcg DAILY CHIN Administration Pantoprazole Sodium 40 mg 06/01/20 09:00 06/01/20 08:[address] 40 Mg Tablet PO Not Given DAILY CHIN Sotalol HCl 120 mg 05/31/20 18:00 06/01/20 08:20 Sotalol 80 Mg Tablet PO 120 mg BID CHIN Administration PFSH Acute PFSH: Medical History (Updated 06/01/20 @ 08:49 by Kamilla Sandhu MD) A-fib Diabetes mellitus Electrical isolation of left atrial appendage after cardiac ablation procedure for atrial fibrillation Hypothyroid Onychodystrophy Surgical History History of tonsillectomy and adenoidectomy Family History Other CAD (coronary artery disease) Denies family history of Diabetes Cancer Social History Smoking and tobacco status: former smoker Alcohol intake: never History of recent travel: No Current gender identity: Male Vitals/I&O/Wt Last Vital Signs Temp 98.5 F 06/01/20 08:00 Pulse 75 06/01/20 08:00 Resp 19 H 06/01/20 08:00 BP 144/77 06/01/20 08:00 Pulse Ox 96 06/01/20 08:00 05/31/20 06/01/20 06/01/20 22:59 06:59 14:59 Intake Total 1100 / 1100 Output Total 900 / 900 625 / 1525 150 / 150 Balance -900 / -900 475 / -425 -150 / -150 Weight last 48 hrs Weight 195 lb Physical Exam Narrative: EXAM NARRATIVE: General: He looks at least 10 years younger than his age. Mental status exam alert with no signs of somnolence. His speech is dysarthric but easily intelligible. Linguals and guttural's both affected. Cranial nerves: He has nystagmus on right gaze and ratchety eye movements in both directions. Upgaze and downgaze preserved. PERRL. Trace left facial weakness. Slowing of tongue movements noted on speech. Bedside swallowing test not done but he has water at the bedside and it looks like he took his medication with water. Motor: Moderate left hemiparesis. The hand is flaccid on the left and he has more involvement of the hand then of the shoulder or the left leg. He is able to lift the left leg off of the bed but has less movement in the toes. He is able to lift the left arm from the bed against gravity but cannot move his fingers at all or his wrist. He has laxity of the left shoulder. Sensory is normal to touch. Deep tendon reflexes: Plantar response not tested. He is a little hyperreflexic on the right. Gait not tested. Cardiac: S1 and S2 normal at this time with regular rhythm. A&P Assessment and plan (1) Right pontine stroke: He presents with worsening symptoms of right pontine stroke secondary to ischemia in the distribution of one of the penetrating arteries of the see. These are direct branches off of the basilar artery and artery to artery embolus is a common cause of ischemia. His MR I from 05/27 shows the perfect distribution of a complete penetrating artery stroke in the right see. On the other hand, lacunar disease from diabetes and hypertension may also impair the small blood vessels and waxing and waning of symptoms can occur both with lacunar disease and with embolic occlusion. There is no sign of vertebrobasilar disease based on CT angiogram but this is not a perfect test. When he is stable it would be good to go ahead with an MR angiogram from the aortic arch all the way through the cervical vessels and intracranial vessels with and without contrast and I think it would be valuable to repeat his MRI as well. I would rather not do that today but perhaps tomorrow would be a consideration. Posterior circulation ischemia is often sensitive to minor changes in blood pressure and keeping him supine as much as possible without risking aspiration and keeping a high flow of IV fluids may be of value in addition to maximizing antiplatelet treatment as you are doing now and statin therapy at a high dose. There is no rationale for the addition of any other antiplatelet agents and risk of hemorrhage would substantially go up with any further antiplatelet treatment. Aggressive physical therapy and Occupational Therapy and speech therapy. I will remain involved with his care and I thank you for consulting me. Status: Acute (2) Diabetes mellitus: Status: Acute Qualifiers: Diabetes mellitus type: type 2 Diabetes mellitus terminal carman insulin use: without terminal carman use Diabetes mellitus complication status: without complication Qualified Code(s): E11.9 - Type 2 diabetes mellitus without complications (3) A-fib: Apixaban Status: Acute Qualifiers: Atrial fibrillation type: paroxysmal Qualified Code(s): I48.0 - Paroxysmal atrial fibrillation (4) Essential hypertension: Status: Acute Consult Attestations Medical Necessity Statement: Posterior circulation ischemia with neurologic instability Time Spent in Patient Care: Greater than 35 minutes (>than 50% of time spent in counselling and/or direct pt care on unit) . 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
--- NOTE | 2020-06-01 09:19 | PC.OT ---
OT note: Discussed with RN and she reported doctor requested patient to lay flat, will hold until further notice.
--- NOTE | 2020-06-01 09:27 | PC.CHAP ---
Pastoral Care Encounter/Spiritual Assessment Type of Contact [] Declined equal opportunity specialist visit [] Patient/Family/Request visit [] Outpatient visit [] Follow-up visit [] Physician referral [] Code/Alert [] Routine visit [] Staff referral [] Actively dying [] Patient sleeping [] Family support [] [] Out of room [] Palliative care [] [] Receiving care in room [] Pre-surgical visit [] Trauma [] Long length of stay [] ICU visit [] Other: Relational/Emotional Strength [] Patient feels connected with others/family/visitors/staff [] Distress [] Loneliness/isolation [] Abandonment Spirituality of Patient [] Person of Linda [] Attends Uatsdin of their Linda [] Believes in Prayer [] Reads Bible or Rastafari materials [x] There are Spiritual issues to be addressed Jewel Gauger Interventions [x] Prayer [] Active listening [x] Non-anxious presence [] Spiritual/emotional support [] Crisis/trauma care [] Spiritual counseling [] Bereavement support [] Provided bereavement packet [] Provided Bible/devotional materials [] Provided toy/stuffed animal, coloring book to patient or family member [] Provided Communion [] Anointing/[place] [] Salvation [x] Completed spiritual assessment [] Other: Impact on Illness or Injury [] Angry [] Fearful [] Anxious [] Often cries [] Exhaustion [] Unable to work [] Unable to attend voodoo [] Unable to walk/stand [] Unable to read [] Unable to drive [] Unable to eat/drink [] Unable to sleep [] Unable to be with family [] Patient intubated [] Other: Summary Time spent with patient 10 min
[2020-06-01 12:00] VITALS: BP 131/70; PULSE 69; RESP 20; TEMP 36.4; O2SAT 96
--- NOTE | 2020-06-01 12:16 | PC.NURSE ---
speech to here see and evaluate patient.
--- NOTE | 2020-06-01 14:27 | P.PN_ITS ---
Subjective Subjective: Interval history: Patient's left-sided weakness is improving today. Lower extremity strength is much better. He is able to flex at the hip and the knee and the ankle which he was not able to do yesterday. Upper extremity on the left side still remains weak. Facial asymmetry does appear more pronounced today. No gross changes in mental status. No aphasia. 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 No aphasia. Data : 06/01/20 04:43 06/01/20 04:43 A&P Assessment and plan (1) Right pontine stroke: Status: Acute (2) Cerebrovascular accident: Status: Acute Qualifiers: CVA mechanism: embolism Laterality of affected vessel: right Precerebral and cerebral artery: middle cerebral artery Qualified Code(s): I63.411 - Cerebral infarction due to embolism of right middle cerebral artery (3) Diabetes mellitus: Status: Acute Qualifiers: Diabetes mellitus type: type 2 Diabetes mellitus [facility] insulin use: without lobsterman use Diabetes mellitus complication status: without com plication Qualified Code(s): E11.9 - Type 2 diabetes mellitus without comp lications (4) A-fib: Status: Acute Qualifiers: Atrial fibrillation type: paroxysmal Qualified Code(s): I48.0 - Paroxysmal atrial fibrillation (5) Essential hypertension: Status: Acute Additional A&P Information # Rcent right pontine CVA with left hemiparesis which had resolved by last hopsital discharge, however now with recurrent progressive symptoms over the l ast 2-[address] head with known recent CVA with surrounding edema, no midline shift Neurology consult appreciated Continue IVF 125 cc/hr to maintain good cereral blood flow Hold irbesartan as allowing for permissive HTN Continue sotalol for now as discontonuing this suddenly may precipitate arrh ytmia Bedrest, lay flat Appreciate PT OT and swallow evaluation Patient on ASA 325 and Eliquis , to continue, Lipitor 80 mg p.o. to continue Plan for MRI and MRA tomorrow including images from the aortic and LV. 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
[2020-06-01 16:00] VITALS: BP 148/72; PULSE 78; RESP 24; TEMP 37.7; O2SAT 95
--- NOTE | 2020-06-01 18:40 | PC.NURSE ---
patient had an uneventful shift. pt seems to be able to move lower left extremity a little more than at the beginning of my shift. pt requested to sit on the side of the bed and read his book for a little bit. needs within reach.
--- NOTE | 2020-06-01 18:46 | PC.PT ---
Nursing requests hold PT today, per physician, will follow
[2020-06-01 20:00] VITALS: BP 133/66; PULSE 78; RESP 24; O2SAT 95
[2020-06-01] MEDS: atorvastatin 40 mg Tablet 80 MG PO (20:57)
[2020-06-02] VITALS (7 sets, daily range): BP systolic 147–162; BP diastolic 76–83; PULSE 68–73; RESP 13–25; TEMP 36.3–37; O2SAT 94–98
[2020-06-02] MEDS: sodium chloride 0.9% 1,000 ML 125 ML IV ×3 (01:03→17:03)
[2020-06-02 05:40] LABS: Basophils % 0.8 %; Eosinophils # 0.1 10^3/uL (0.0-0.8); Eosinophils % 2.4 %; Hematocrit 37.5 % (42.0-52.0); Hemoglobin 11.8 g/dL (11.7-16.6); Lymphocytes % 25.1 %; Mean Corpuscular HGB Conc 31.5 g/dL (30.0-36.0); Mean Corpuscular Hemoglobin 27.4 pg (28.0-34.0); Mean Corpuscular Volume 87.2 fL (80-94); Mean Platelet Volume 10.8 fL (7.4-10.4); Monocytes # 0.6 10^3/uL (0.2-0.9); Monocytes % 16.8 %; Neutrophils # 2.09 10^3/uL (1.8-7.7); Neutrophils % 54.6 %; Nucleated Red Blood Cells % 0 %; Platelet Count 134 10^3/cmm (130-400); Red Cell Distribution Width 16.4 % (12.1-15.1); White Blood Count 3.8 10^3/uL (4.0-10.0)
[2020-06-02 06:15] LABS: Alanine Aminotransferase 14 U/L (0-41); Albumin Level 3.5 g/dL (3.5-5.2); Alkaline Phosphatase 46 IU/L (40-130); Anion Gap 18.6 (5-19); Aspartate Amino Transferase 14 U/L (0-40); Blood Urea Nitrogen 8 mg/dL (8-23); Calcium 8.2 mg/dL (8.5-10.5); Carbon Dioxide 20 mmol/L (22-29); Chloride 103 mmol/L (98-107); Globulin 2.2 g/dL (1.3-4.6); Glucose 142 mg/dL (65-115); Osmolality Calculated 287 mOsm/kg (285-295); Potassium 3.6 mmol/L (3.5-5.1); Sodium 138 mmol/L (136-145); Total Bilirubin 0.3 mg/dL (0.15-1.2); Total Protein 5.7 g/dL (6.6-8.7)
--- NOTE | 2020-06-02 06:16 | PC.NURSE ---
PT RESTING IN BED AT THIS TIME. PT DENIES PAIN. PT ASSISTED TO USE URINAL X6. WILL CONTINUE TO MONITOR.
[2020-06-02] MEDS: aspirin 325 mg Tablet PO (09:07)
[2020-06-02] MEDS: sotalol 80 mg Tablet 120 MG PO ×2 (09:08→17:03)
[2020-06-02] MEDS: levothyroxine 150 mcg Tablet PO (09:08)
[2020-06-02] MEDS: apixaban 5 mg Tablet PO ×2 (09:08→17:03)
--- NOTE | 2020-06-02 09:24 | MRR_ITS ---
PROCEDURE INFORMATION: Exam: MR Angiogram Head Without Contrast, Arteries Exam date and time: 06/02/2020 6:06 PM Age: 79 years old Clinical indication: Weakness; Additional info: Recurrent CVA TECHNIQUE: Imaging protocol: MR angiogram head without contrast. Exam focused on the arteries. COMPARISON: CT angio headneck* [id number] 05/24/2020 4:57 AM FINDINGS: ANTERIOR CIRCULATION: Right internal carotid artery: Intracranial segment is patent with no significant stenosis. No aneurysm. Right middle cerebral artery: No occlusion or significant stenosis. No aneurysm. Right anterior cerebral artery: No occlusion or significant stenosis. No aneurysm. Left internal carotid artery: Intracranial segment is patent with no significant stenosis. No aneurysm. Left middle cerebral artery: No occlusion or significant stenosis. No aneurysm. Left anterior cerebral artery: No occlusion or significant stenosis. No aneurysm. POSTERIOR CIRCULATION: Right vertebral artery: No occlusion or significant stenosis. No aneurysm. Left vertebral artery: No occlusion or significant stenosis. No aneurysm. Basilar artery: No occlusion or significant stenosis. No aneurysm. Right posterior cerebral artery: No occlusion or significant stenosis. No aneurysm. Left posterior cerebral artery: No occlusion or significant stenosis. No aneurysm. MR/MR angio head wo con [id number] IMPRESSION: No stenosis or occlusion.
--- NOTE | 2020-06-02 09:24 | MRR_ITS ---
PROCEDURE INFORMATION: Exam: MR Head Without and With Contrast Exam date and time: 06/02/2020 6:06 PM Age: 79 years old Clinical indication: Weakness, extremity; Left; Additional info: Recurrent CVA TECHNIQUE: Imaging protocol: MR of the head without and with intravenous contrast. 3D rendering (Not supervised by radiologist): MIP and/or 3D reconstructed images were created by the technologist. COMPARISON: MR angio head wo con [id number] 06/02/2020 6:15 PM FINDINGS: Brain: Examination reveals a focus of intense signal on the diffusion-weighted sequence right pontine hemisphere consistent with a acute to early subacute infarction. The area of involvement measures approximately 18 mm x 7 mm x 10 mm. There is also a solitary tiny focus of hyperintense signal at the level of the superior margin right lentiform nucleus representing and antecedent small lacunar insult representing T2 shine through. Mild small vessel ischemic disease with senile periventricular leukomalacia. No visible generalized cerebral edema or demyelination. No mass effect. No midline shift. No visible intracranial hemorrhagic event. No abnormal enhancement pattern. No visible vascular malformation. No visible neoplastic process. Cerebral ventricles: No ventriculomegaly. Bones/joints: Unremarkable. Paranasal sinuses: Normal as visualized. No acute sinusitis. Mastoid air cells: Normal as visualized. No mastoid effusion. Orbits: Unremarkable. Soft tissues: Unremarkable. Other vasculature: No visible vascular occlusion. MR/MR head wo/w con [id number] IMPRESSION: 1. Examination reveals an acute to early subacute infarction of the right pontine hemisphere as detailed in text above. 2. Antecedent lacunar infarction superior right lentiform nucleus. 3. Mild small vessel ischemic disease with senile periventricular leukomalacia.
--- NOTE | 2020-06-02 15:50 | PM.PN ---
Subjective Subjective: Interval history: Today he has been having to urinate multiple times, he is doing well, but also made a few trips to the restroom prescription nursing staff. UA was done on the ninth and yesterday, and both unremarkable. Straight cath was drawn, and he was found to retain 800 mL of urine. Dill catheter was left in place for now as per discussion to allow him to remain supine as much as possible for now. Vitals/I&O/Wt Last Vital Signs Temp 97.4 F L 06/02/20 12:00 Pulse 73 06/02/20 12:00 Resp 18 06/02/20 12:00 BP 147/78 06/02/20 12:00 Pulse Ox 98 06/02/20 12:00 06/02/20 06/02/20 06/02/20 06:59 14:59 22:59 Intake Total 845.833 / 3205.833 1780 / 1780 Output Total 1600 / 3900 750 / 750 Balance -754.167 / -864.243 1782 / 1030 Physical Exam Const: COMMON NORMALS: no acute distress and patient oriented x3 HENMT: COMMON NORMALS: oropharynx normal Neck/C-Spine: COMMON NORMALS: no JVD Resp: COMMON NORMALS: normal respiratory effort and clear to auscultation bilaterally AUSCULTATION: clear to auscultation bilaterally Cardio: COMMON NORMALS: no JVD, regular rhythm, S1 normal heart sound present, S2 normal heart sound present and No murmurs present (Cardio) RHYTHM: regular rhythm HEART SOUNDS: S1 normal heart sound present and S2 normal heart sound present GI: COMMON NORMALS: Normal to inspection, nondistended, normoactive bowel sounds present, Soft to palpation and non-tender PALPATION: Yes Soft to palpation Extremity: COMMON NORMALS: no joint enlargement and no pedal edema Neuro: COMMON NORMALS: patient oriented x3 OTHER: Noted mild dysarthria. He reports power is about the same in the left upper extremity. He is able to extend the arm somewhat at the shoulder. Lower extremity is better, and in fact he noticed urinary examination that even has better coordination in terms of [id number] test on the left side. Sensation is intact upper and lower. No sensory neglect. Visual de [place] are full to confrontation. Skin: COMMON NORMALS: no rashes or lesions noted GENERAL SKIN EXAM: no rashes or lesions noted Urinary Catheter Management^: Dill: Cath Placed During This Visit: yes Urinary Catheter Date of Insertion: 06/02/20 Urinary Catheter Time of Insertion: 14:16 Data : 06/02/20 05:17 06/02/20 05:17 A&P Assessment and plan (1) Right pontine stroke: Pending additional assessment as recommended by MRI of upper chest, neck, head, repeat MRI. We were notified this also could not be done in 1 continuous take, and so will need to be split up between today and tomorrow. He is showing a little bit of improvement today in terms of coordination in left lower extremity. Otherwise no new symptoms. At this time Dill catheter was placed to allow him to stay supine due to some noted urinary retention. For now hold off on prostate medication to avoid blood pressure fluctuation. Continue aspirin, Eliquis. Statin. Continue PT, OT, ST. IVF. Pending assessment of right carotid stenosis by cardiovascular surgery in office. Status: Acute (2) Cerebrovascular accident: Status: Acute (3) Diabetes mellitus: A1c 7.1. Continue Januvia after discharge. Status: Acute (4) A-fib: Continue Eliquis. Sotalol. Status: Acute Qualifiers: Atrial fibrillation type: paroxysmal Qualified Code(s): I48.0 - Paroxysmal atrial fibrillation (5) Essential hypertension: Monitor blood pressures. Status: Acute (6) Urinary retention: Multiple request to urinate today. Noted 800 mL residual on straight cath. Dill left in place. He does report intermittent nycturia. For now hold off on prostate medication to avoid blood pressure fluctuation. UA both on 05/31 and 06/01 normal. Status: Acute Additional A&P Information Full code DVT ppX: Eliquis to continue Attestations Medical Necessity Statement*: Continue admission for assessment and management CVA with fluctuating symptoms. Coding Level of Care Code Acute Digital Measurement Advisor for [facility] Fwd Exam Comprehensive Diagnoses Right pontine stroke I63.50 Cerebrovascular accident I63.9 Diabetes mellitus E11.9 A-fib I48.0 Atrial fibrillation type: paroxysmal Essential hypertension I10 Urinary retention R33.9
--- NOTE | 2020-06-02 17:53 | PC.SLP ---
Pt seen prior to going for MRI. He wanted to visit with his spouse, but he did indicate improved swallowing today. He indicated that he was doing well with thin liquids and mech. soft consistency. He did not want to attempt upgrade to regular consistency at this time.
--- NOTE | 2020-06-02 18:45 | PC.PT ---
Nursing requests hold PT evaluation again today; patient to remain on bedrest, will follow
--- NOTE | 2020-06-02 19:05 | PC.NURSE ---
Patient is currently at MRI.
--- NOTE | 2020-06-02 19:17 | PC.NURSE ---
Patient returned from MRI at this time. Patient is asking to be cleaned up. Bed bath will be given.
--- NOTE | 2020-06-02 19:47 | PC.NURSE ---
Patient stated I don't understand why I can't get up to the shower or bathroom. Spoke with Dr. Arciniega who ordered to minimize time up out of bed. Will use bedside commode when patient needs to go to the bathroom and will give bed bath instead of shower.
--- NOTE | 2020-06-02 19:51 | PM.EVENT ---
Event Note Event Note: I was called by [facility] regarding MRI results, patient has right pontine stroke, on review of records it seems like this was an known diagnosis on admission patient currently is on Eliquis 5 mg twice a day and high-dose aspirin along high intensity statins Dr. Sandhu is consulted I would not add any other therapeutic agents at this point, will monitor overnight
--- NOTE | 2020-06-02 19:54 | PC.NURSE ---
Radiology called stating there was a finding on MRI. They asked for doctor and were transferred to hospitalist currently on-Dr. Santos.
[2020-06-02] MEDS: atorvastatin 40 mg Tablet 80 MG PO (20:20)
--- NOTE | 2020-06-02 22:02 | PC.NURSE ---
Patient stated that he cleaned his self up in some places/gave self a partial bed bath with bath wipes provided by PROCESS ENG. Patient was asked if he needs assistance or would like a full bed bath and stated no.
[2020-06-03] VITALS (7 sets, daily range): BP systolic 137–184; BP diastolic 70–89; PULSE 70–88; RESP 15–18; TEMP 36.8–36.9; O2SAT 94–98
[2020-06-03] MEDS: sodium chloride 0.9% 1,000 ML 125 ML IV ×2 (01:46→09:19)
[2020-06-03 05:27] LABS: Basophils # 0.1 10^3/uL (0.0-0.1); Basophils % 1.4 %; Eosinophils # 0.1 10^3/uL (0.0-0.8); Eosinophils % 2.5 %; Hematocrit 38.8 % (42.0-52.0); Hemoglobin 11.9 g/dL (11.7-16.6); Lymphocytes % 22.2 %; Mean Corpuscular HGB Conc 30.7 g/dL (30.0-36.0); Mean Corpuscular Hemoglobin 27.2 pg (28.0-34.0); Mean Corpuscular Volume 88.6 fL (80-94); Mean Platelet Volume 10.8 fL (7.4-10.4); Monocytes # 0.7 10^3/uL (0.2-0.9); Monocytes % 15.9 %; Neutrophils % 57.8 %; Nucleated Red Blood Cells % 0 %; Platelet Count 119 10^3/cmm (130-400); Red Blood Count 4.38 10^6/uL (4.1-5.3); Red Cell Distribution Width 16.3 % (12.1-15.1); White Blood Count 4.3 10^3/uL (4.0-10.0)
[2020-06-03 06:03] LABS: Alanine Aminotransferase 16 U/L (0-41); Albumin Level 3.5 g/dL (3.5-5.2); Alkaline Phosphatase 47 IU/L (40-130); Anion Gap 16.6 (5-19); Aspartate Amino Transferase 15 U/L (0-40); Blood Urea Nitrogen 8 mg/dL (8-23); Calcium 8.1 mg/dL (8.5-10.5); Carbon Dioxide 22 mmol/L (22-29); Chloride 102 mmol/L (98-107); Globulin 2.4 g/dL (1.3-4.6); Glucose 138 mg/dL (65-115); Osmolality Calculated 285 mOsm/kg (285-295); Potassium 3.6 mmol/L (3.5-5.1); Sodium 137 mmol/L (136-145); Total Bilirubin 0.4 mg/dL (0.15-1.2); Total Protein 5.9 g/dL (6.6-8.7)
--- NOTE | 2020-06-03 09:02 | PM.PN ---
Subjective Subjective: Interval history: Chart reviewed, MRA of neck today. Dill catheter remains in place, had 2250 mL urine output overnight, BP on the higher side, otherwise hemodynamically stable and afebrile. Gone to MRI during my ms access database developer visit. Ok to d/c IVF and strict bedrest per Dr. Sandhu. Medications: Reviewed: Yes Medication Review Details: Active Medications Generic Name Dose Route Start Last Admin Trade Name Freq PRN Reason Stop Dose Admin Acetaminophen 650 mg 05/31/20 17:28 Acetaminophen 32 5 Mg Tablet PO Q6H PRN Mild/Mod Pain Or Temp >/= 101 Apixaban 5 mg 05/31/20 18:00 06/02/20 17:03 Apixaban 5 Mg Ta blet PO 5 mg BID CHIN Administration Aspirin 325 mg 06/01/20 09:00 06/02/20 09:07 Aspirin 325 Mg T ablet PO 325 mg DAILY CHIN Administration Atorvastatin Calci um 80 mg 05/31/20 21:00 06/02/20 20:20 Atorvastatin 40 Mg Tablet PO 80 mg BEDTIME CHIN Administration Clonazepam 0.5 mg 05/31/20 17:36 Clonazepam 0.5 M g Tablet PO TID PRN Anxiety Sodium Chloride 1,000 mls @ 125 m ls/hr 05/31/20 17:30 06/03/20 01:46 Sodium Chloride 0.9% IV 125 mls/hr .Q8H CHIN Administration Levothyroxine Sodi um 150 mcg 06/01/20 09:00 06/02/20 09:08 Levothyroxine 15 0 Mcg Tablet PO 150 mcg DAILY CHIN Administration Non-Formulary 1 each 06/02/20 21:00 06/03/20 05:54 Medication ( PO 1 each Preservision Cap) 0700,2100 CHIN Administration Ondansetron HCl 4 mg 05/31/20 17:33 Ondansetron 2 Mg /Ml Sdv 2 Ml IVP Q8H PRN vomiting, or N/V if npo Pantoprazole Sodiu m 40 mg 06/01/20 09:00 06/02/20 09:[address] 40 Mg Tablet PO Not Given DAILY CHIN Sotalol HCl 120 mg 05/31/20 18:00 06/02/20 17:03 Sotalol 80 Mg Ta blet PO 120 mg BID CHIN Administration rivaroxaban [From Xarelto] Adverse Reaction (Verified 05/31/20 13:51) nausea Vitals/I&O/Wt Last Vital Signs Temp 98.2 F 06/03/20 07:07 Pulse 72 06/03/20 07:07 Resp 17 06/03/20 07:07 BP 177/88 06/03/20 07:07 Pulse Ox 96 06/03/20 07:07 06/02/20 06/03/20 06/03/20 22:59 06:59 14:59 Intake Total 1244.167 / 3024.167 1300 / 4324.167 240 / 240 Output Total 2300 / 3050 1250 / 4300 Balance -1055.833 / -25.833 50 / 24.167 240 / 240 Physical Exam Const: COMMON NORMALS: no acute distress and patient oriented x3 GENERAL APPEARANCE: cooperative and comfortable ORIENTATION/CONSCIOUSNESS: Yes awake HENMT: COMMON NORMALS: normocephalic, atraumatic, hearing grossly normal bilaterally and moist oral mucous membranes HEAD & SCALP: normocephalic and atraumatic Eye: COMMON NORMALS: Equal, round and reactive pupils present, EOMs intact bilaterally and conjunctivae normal CONJUNCTIVA: Yes conjunctivae normal PUPIL: Yes Equal, round and reactive pupils present Neck/C-Spine: COMMON NORMALS: full ROM GENERAL: Yes normal visual inspection and Yes trachea midline Resp: COMMON NORMALS: normal respiratory effort, No retractions, No use of accessory muscles and clear to auscultation bilaterally EFFORT & INSPECTION: Yes able to speak in complete sentences, Yes symmetric chest movement and No tachypneic AUSCULTATION: clear to auscultation bilaterally Cardio: COMMON NORMALS: regular rate, regular rhythm, S1 normal heart sound present, S2 normal heart sound present and No murmurs present (Cardio) RATE: regular rate RHYTHM: regular rhythm HEART SOUNDS: S1 normal heart sound present and S2 normal heart sound present GI: COMMON NORMALS: Normal to inspection, nondistended, normoactive bowel sounds present, Soft to palpation and non-tender PALPATION: Yes Soft to palpation Extremity: COMMON NORMALS: normal to inspection, full ROM and no clubbing, cyanosis or edema; negative for no pedal edema Neuro: COMMON NORMALS: patient oriented x3 and moves all extremities Psych: COMMON NORMALS: mental status grossly normal, Normal thought process present, cooperative, normal affect and speech normal SPEECH: Yes normal speech THOUGHT PROCESS: Normal thought process present Skin: COMMON NORMALS: no rashes or lesions noted, no jaundice, no petechiae and no mottling GENERAL SKIN EXAM: no rashes or lesions noted Urinary Catheter Management^: Dill: Cath Placed During This Visit: yes Reason for Continuing Indwelling Catheter: Acute Urinary Retention or Obstruction Urinary Catheter Date of Insertion: 06/02/20 Urinary Catheter Time of Insertion: 14:16 Data : 06/03/20 04:52 06/03/20 04:52 A&P Assessment and plan (1) Right pontine stroke: -Readmitted due to worsening left-sided weakness -Had extensive work-up done during prior admission, repeat imaging including MRI and MRA done during this admission. MRA of the neck shows 60% stenosis of right proximal ICA, no significant left ICA stenosis -Neurology evaluation by Dr. Sandhu appreciated; ok to d/c strict bed rest and IVF -Neurochecks, fall/aspiration precautions -PT/OT/ST evaluations appreciated -Vital signs stable, continue to monitor -Telemetry monitoring -On IVF hydration to maintain blood pressure; d/c today -Continue statin, aspirin, anticoagulation with Eliquis -not a candidate for tPA due to AC Status: Acute (2) Urinary retention: -Dill catheter in place, assess daily for removal; continue to monitor urine output -Hold off on initiation of Flomax to prevent hypotension Status: Acute (3) Carotid artery stenosis: -Noted to have thick calcified plaque disease in proximal short segment of right ICA causing more than 70% stenosis -To follow-up with Dr. Rod as an outpatient -On antiplatelet therapy, statin Status: Acute Qualifiers: Laterality: right Qualified Code(s): I65.21 - Occlusion and stenosis of right carotid artery (4) Diabetes mellitus: -A1c at goal-7.1 -hypoglycemia precautions Status: Chronic Qualifiers: Diabetes mellitus complication detail: with other neurological complication Diabetes mellitus complication status: with neurologic complications Diabetes mellitus care home insulin use: without local company intermodal truck driver use Diabetes mellitus type: type 2 Qualified Code(s): E11.49 - Type 2 diabetes mellitus with other diabetic neurological complication (5) A-fib: -has known hx of atrial fibrillation, s/p multiple cardioversions, ablations x 2 -HR controlled -telemetry monitoring -continue sotalol, Eliquis -follows up with Dr. Galvez at [facility] ([place]) Status: Chronic Qualifiers: Atrial fibrillation type: paroxysmal Qualified Code(s): I48.0 - Paroxysmal atrial fibrillation (6) Hypothyroid: -TSH wnl -continue levothyroxine Status: Chronic Qualifiers: Hypothyroidism type: acquired Qualified Code(s): E03.9 - Hypothyroidism, unspecified (7) Essential hypertension: -keep BP a little higher to maintain circulation in light of CVA -continue to monitor vital signs Status: Chronic Additional A&P Information -mechanical soft diet, aspiration precautions -GI ppx with -DVT ppx not needed as on Eliquis -Dispo: home with ([facility] – [place] -Code status: FULL code Attestations Medical Necessity Statement*: Patient requires hospitalization for continued post CVA care and pending completion of work-up including additional imaging, continued monitoring of hemodynamic status. Time Spent in Patient Care: Greater than 35 minutes (>than 50% of time spent in counselling and/or direct pt care on unit). Coding Level of Care Code Acute Secretary Of Police for Ch[employer] Fwd Exam Comprehensive Diagnoses Right pontine stroke I63.50 Urinary retention R33.9 Carotid artery stenosis I65.21 Laterality: right Diabetes mellitus E11.49 Diabetes mellitus complication detail: with other neurological complication Diabetes mellitus complication status: with neurologic complications Diabetes mellitus local company intermodal truck driver insulin use: without local company intermodal truck driver use Diabetes mellitus type: type 2 A-fib I48.0 Atrial fibrillation type: paroxysmal Hypothyroid E03.9 Hypothyroidism type: acquired Essential hypertension I10
[2020-06-03] MEDS: levothyroxine 150 mcg Tablet PO (09:18)
[2020-06-03] MEDS: apixaban 5 mg Tablet PO ×2 (09:18→17:40)
[2020-06-03] MEDS: aspirin 325 mg Tablet PO (09:18)
[2020-06-03] MEDS: sotalol 80 mg Tablet 120 MG PO ×2 (09:18→17:39)
--- NOTE | 2020-06-03 09:18 | DCPLANNER ---
IMM completed on 06/03/2020 @ 2408. Copy of rights given to pt.
--- NOTE | 2020-06-03 10:15 | MR_ITS ---
WS: [id number] MRA CAROTID WITHOUT AND WITH GADOLINIUM ENHANCEMENT TECHNIQUE: Axial 2-D TOF and gadolinium bolus images obtained with axial images and axial, sagittal, and coronal 2-D reformatted images. CLINICAL INFORMATION: recurrent CVA COMPARISON: CTA head neck May 24, 2020 FINDINGS: RIGHT: Right common carotid artery is patent. Stenosis right proximal ICA measuring approximately 60% . Right ICA remains patent to the skull base. LEFT: Left common carotid artery is patent. No significant left ICA stenosis. Left ICA is patent to t he skull base. Moderate calcified atheromatous disease both carotid bulbs right greater than left. Codominant and patent vertebral arteries bilaterally. Proximal basilar artery is patent. Normal aortic arch. Proximal great vessels are normal in appearance. MR/MR angio neck w con* [id number] IMPRESSION: 1. Stenosis right proximal ICA measuring approximately 60%. Right ICA is paten t to the skull base. 2. No significant left ICA stenosis. 3. Moderate calcified atheromatous disease both carotid bulbs extending into t he ICAs right greater than left. 4. Codominant and patent vertebral arteries bilaterally.
--- NOTE | 2020-06-03 12:47 | PC.NURSE ---
dr bishop contacted about patient being on strict flat bedrest and patient concerned as to how he was suppose to eat. dr Bishop instructed nurse to call Dr. Sandhu to recieve further orders pertaining to bedrest. Dr. Sandhu gave telephone orders to discontinue IV fluids and that patient could get up and move around. Patient informed of this.
[2020-06-03] MEDS: atorvastatin 40 mg Tablet 80 MG PO (18:45)
--- NOTE | 2020-06-03 20:10 | PC.NURSE ---
This nurse was in room 106 and the other 2 RNs were in room 112 bed 2 assisting patients. When this nurse walked out of room 106, room call lights were going off on rooms 104 and 105. Nurse answered call light in room 104, then 105. When answering call light in this patient's room (105), patient states Is nobody out there to answers the call lights? This nurse explained that I was in another room, but apologized for him having to wait. He states, what do you mean by in another room? Were you taking a lunch break? This nurse explained that I was not taking a break, but was assisting another patient.
--- NOTE | 2020-06-04 03:40 | PC.NURSE ---
Patient asked for something to be placed on his left elbow to prevent skin breakdown. Optifoam placed to left elbow.
[2020-06-04 04:00] VITALS: BP 155/87; PULSE 70; RESP 16; TEMP 36.5; O2SAT 94
[2020-06-04 07:45] VITALS: BP 151/86; PULSE 73; RESP 20; TEMP 36.6; O2SAT 98
--- NOTE | 2020-06-04 08:38 | P.PN_ITS ---
Subjective Subjective: Interval history: Seen earlier this morning with Dr. Sandhu, resting quietly in bed, continued left-sided hemiparesis, noted right facial droop. Reviewed imaging and encouraged consideration of acute rehab which patient is agreeable to. Will request Dill catheter removal. Medications: Reviewed: Yes Medication Review Details: Active Medications Generic Name Dose Route Start Last Admin Trade Name Freq PRN Reason Stop Dose Admin Acetaminophen 650 mg 05/31/20 17:28 Acetaminophen 32 5 Mg Tablet PO Q6H PRN Mild/Mod Pain Or Temp >/= 101 Apixaban 5 mg 05/31/20 18:00 06/03/20 17:40 Apixaban 5 Mg Ta blet PO 5 mg BID CHIN Administration Aspirin 325 mg 06/01/20 09:00 06/03/20 09:18 Aspirin 325 Mg T ablet PO 325 mg DAILY CHIN Administration Atorvastatin Calci um 80 mg 05/31/20 21:00 06/03/20 18:45 Atorvastatin 40 Mg Tablet PO 80 mg BEDTIME CHIN Administration Clonazepam 0.5 mg 05/31/20 17:36 Clonazepam 0.5 M g Tablet PO TID PRN Anxiety Levothyroxine Sodi um 150 mcg 06/01/20 09:00 06/03/20 09:18 Levothyroxine 15 0 Mcg Tablet PO 150 mcg DAILY CHIN Administration Non-Formulary 1 each 06/02/20 21:00 06/04/20 05:00 Medication ( PO 1 each Preservision Cap) 0700,2100 CHIN Administration Ondansetron HCl 4 mg 05/31/20 17:33 Ondansetron 2 Mg /Ml Sdv 2 Ml IVP Q8H PRN vomiting, or N/V if npo Pantoprazole Sodiu m 40 mg 06/01/20 09:00 06/03/20 09:[address] 40 Mg Tablet PO Not Given DAILY CHIN Sotalol HCl 120 mg 05/31/20 18:00 06/03/20 17:39 Sotalol 80 Mg Ta blet PO 120 mg BID CHIN Administration rivaroxaban [From Xarelto] Adverse Reaction (Verified 05/31/20 13:51) nausea Vitals/I&O/Wt Last Vital Signs Temp 97.8 F 06/04/20 07:45 Pulse 73 06/04/20 07:45 Resp 20 H 06/04/20 07:45 BP 151/86 06/04/20 07:45 Pulse Ox 98 06/04/20 07:45 06/03/20 06/04/20 06/04/20 22:59 06:59 14:59 Intake Total 1120 / 2543.75 400 / 2943.75 Output Total 1025 / 2925 850 / 3775 Balance 95 / -381.25 -450 / -831.25 Physical Exam Const: COMMON NORMALS: no acute distress, patient oriented x3 and alert GENERAL APPEARANCE: cooperative and comfortable ORIENTATION/CONSCIOUSNESS: Yes awake HENMT: COMMON NORMALS: normocephalic, atraumatic, hearing grossly normal bilaterally and moist oral mucous membranes HEAD & SCALP: normocephalic and atraumatic Eye: COMMON NORMALS: Equal, round and reactive pupils present, EOMs intact bilaterally and conjunctivae normal CONJUNCTIVA: Yes conjunctivae normal PUPIL: Yes Equal, round and reactive pupils present Neck/C-Spine: COMMON NORMALS: full ROM GENERAL: Yes normal visual inspection and Yes trachea midline Resp: COMMON NORMALS: normal respiratory effort, No retractions, No use of accessory muscles and clear to auscultation bilaterally EFFORT & INSPECTION: Yes able to speak in complete sentences, Yes symmetric chest movement and No tachypneic AUSCULTATION: clear to auscultation bilaterally OTHER: -on RA Cardio: COMMON NORMALS: regular rate, regular rhythm, S1 normal heart sound present, S2 normal heart sound present and No murmurs present (Cardio) RATE: regular rate RHYTHM: regular rhythm HEART SOUNDS: S1 normal heart sound present and S2 normal heart sound present GI: COMMON NORMALS: Normal to inspection, nondistended, normoactive bowel álvaro nds present, Soft to palpation and non-tender PALPATION: Yes Soft to palpation Extremity: COMMON NORMALS: normal to inspection, full ROM and no clubbing, cyanosis or edema; negative for no pedal edema Neuro: COMMON NORMALS: patient oriented x3 and moves all extremities SENSORIUM/ORIENTATION: Yes alert OTHER: -noted mild R facial droop, slightly slurred speech, L sided hemiparesis (more apparent in hand) Psych: COMMON NORMALS: mental status grossly normal, Normal thought process present, cooperative, normal affect and speech normal SPEECH: Yes normal speech THOUGHT PROCESS: Normal thought process present Skin: COMMON NORMALS: no rashes or lesions noted, no jaundice, no petechiae and no mottling GENERAL SKIN EXAM: no rashes or lesions noted Urinary Catheter Management^: Dill: Cath Placed During This Visit: yes Reason for Continuing Indwelling Catheter: Acute Urinary Retention or Obstruction Urinary Catheter Date of Insertion: 06/02/20 Urinary Catheter Time of Insertion: 14:16 Data : 06/03/20 04:52 06/03/20 04:52 A&P Assessment and plan (1) Right pontine stroke: -Readmitted due to worsening left-sided weakness -Had extensive work-up done during prior admission, repeat imaging including MRI and MRA done during this admission. MRA of the neck shows 60% stenosis of right proximal ICA, no significant left ICA stenosis -Neurology evaluation by Dr. Sandhu appreciated; ok to d/c strict bed rest and IVF -Neurochecks, fall/aspiration precautions -PT/OT/ST evaluations appreciated -Vital signs stable, continue to monitor -Telemetry monitoring -On IVF hydration to maintain blood pressure; d/c today -Continue statin, aspirin, anticoagulation with Eliquis -not a candidate for tPA due to AC Status: Acute (2) Urinary retention: -Dill catheter in place, d/c today continue to monitor urine output -Hold off on initiation of Flomax to prevent hypotension Status: Acute (3) Carotid artery stenosis: -Noted to have thick calcified plaque disease in proximal short segment of right ICA causing more than 70% stenosis -To follow-up with Dr. 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 Galvez at [facility] ([place]) Status: Chronic Qualifiers: Atrial fibrillation type: paroxysmal Qualified Code(s): I48.0 - Paroxys mal atrial fibrillation (6) Hypothyroid: -TSH wnl -continue levothyroxine Status: Chronic Qualifiers: Hypothyroidism type: acquired Qualified Code(s): E03.9 - Hypothyroidism, unspecified (7) Essential hypertension: -keep BP a little higher to maintain circulation in light of CVA -continue to monitor vital signs Status: Chronic Additional A&P Information -mechanical soft diet, aspiration precautions -GI ppx with PPI -DVT ppx not needed as on Eliquis -Dispo: acute rehab; f/u with [facility] tomorrow -Code status: FULL code Attestations Medical Necessity Statement*: Patient requires hospitalization for continued post-CVA care, continued monitoring of BP, therapy, pending appropriate disposition. Time Spent in Patient Care: 16 - 35 minutes (>than 50% of time spent in counselling and/or direct pt care on unit) . Coding Level of Care Code Acute [employer] Accommodation Consultant for [facility] Fwd Exam Comprehensive Diagnoses Right pontine stroke I63.50 Urinary retention R33.9 Carotid artery stenosis I65.21 Laterality: right Diabetes mellitus E11.49 Diabetes mellitus complication detail: with other neurological complication Diabetes mellitus complication status: with neurologic complications Diabetes mellitus rodent exterminator insulin use: without care home use Diabetes mellitus type: type 2 A-fib I48.0 Atrial fibrillation type: paroxysmal Hypothyroid E03.9 Hypothyroidism type: acquired Essential hypertension I10
[2020-06-04] MEDS: apixaban 5 mg Tablet PO ×2 (09:17→19:21)
[2020-06-04] MEDS: pantoprazole DR 40 mg Tablet PO (09:18)
[2020-06-04] MEDS: aspirin 325 mg Tablet PO (09:18)
[2020-06-04] MEDS: sotalol 80 mg Tablet 120 MG PO ×2 (09:23→19:20)
[2020-06-04] MEDS: levothyroxine 150 mcg Tablet PO (09:30)
[2020-06-04 12:00] VITALS: BP 159/89; PULSE 64; RESP 16; TEMP 35.8; O2SAT 98
[2020-06-04 16:00] VITALS: BP 151/96; PULSE 70; RESP 17; TEMP 36.5; O2SAT 97
[2020-06-04 19:08] VITALS: BP 156/86; PULSE 68; RESP 16; TEMP 37.1; O2SAT 94
[2020-06-04] MEDS: atorvastatin 40 mg Tablet 80 MG PO (20:11)
[2020-06-04 23:57] VITALS: PULSE 64; RESP 24
[2020-06-05 02:00] VITALS: PULSE 64; RESP 24
[2020-06-05 03:51] VITALS: BP 157/85; PULSE 64; RESP 16; TEMP 36.6; O2SAT 96
[2020-06-05] MEDS: aspirin 325 mg Tablet PO (08:49)
[2020-06-05] MEDS: apixaban 5 mg Tablet PO (08:49)
--- NOTE | 2020-06-05 08:49 | P.DS_ITS ---
Discharge Providers Date of Admission: 05/31/20 16:14 Date of Discharge: June 05, 2020 Attending Provider at Admission: Ofe Fuchs MD Attending Provider at Discharge: Ely Hood MD Consults: Neurology Dr. Sandhu Primary Care Provider: Eber Judge MD Diagnoses at Discharge Discharge Diagnosis (1) Right pontine stroke: Status: Acute Permanent problem details: -Readmitted due to worsening left-sided weakness -Had extensive work-up done during prior admission, repeat imaging including MRI and MRA done during this admission. MRA of the neck shows 60% stenosis of right proximal ICA, no significant left ICA stenosis -Neurology evaluation by Dr. Sandhu appreciated; ok to d/c strict bed rest and IVF -Neurochecks, fall/aspiration precautions -PT/OT/ST evaluations appreciated -Vital signs stable, continue to monitor -Telemetry monitoring -On IVF hydration to maintain blood pressure; d/c today -Continue statin, aspirin, anticoagulation with Eliquis -not a candidate for tPA due to AC (2) Urinary retention: Status: Acute Permanent problem details: -Dill catheter in place, d/c today continue to monitor urine output -Hold off on initiation of Flomax to prevent hypotension (3) Carotid artery stenosis: Status: Acute Permanent problem details: -Noted to have thick calcified plaque disease in proximal short segment of right ICA causing more than 70% stenosis -To follow-up with Dr. Rod as an outpatient -On antiplatelet therapy, statin Qualifiers: Laterality: right Qualified Code(s): I65.21 - Occlusion and stenosis of right carotid artery (4) Diabetes mellitus: Status: Chronic Permanent problem details: -A1c at goal-7.1 Qualifiers: Diabetes mellitus complication detail: with other neurological complication Diabetes mellitus complication status: with neurologic complications Diabetes mellitus chcf insulin use: without chcf use Diabetes mellitus type: type 2 Qualified Code(s): E11.49 - Type 2 diabetes mellitus with other diabetic neurological complication (5) A-fib: Status: Chronic Permanent problem details: -has known hx of atrial fibrillation, s/p multiple cardioversions, ablations x 2 -HR controlled -telemetry monitoring -continue sotalol, Eliquis -follows up with Dr. Galvez at [facility] ([place]) Qualifiers: Atrial fibrillation type: paroxysmal Qualified Code(s): I48.0 - Paroxysmal atrial fibrillation (6) Hypothyroid: Status: Chronic Permanent problem details: -TSH wnl -continue levothyroxine Qualifiers: Hypothyroidism type: acquired Qualified Code(s): E03.9 - Hypothyroidism, unspecified (7) Essential hypertension: Status: Chronic Permanent problem details: -keep BP a little higher to maintain circulation in light of CVA -continue to monitor vital signs Reason for Visit Reason for Visit: Stroke Complications Worsening Hospital Course Hospital Course Patient was admitted to the cardiac stepdown unit and neurology consulted due to concern that he had developed complications from recent stroke. He was not deemed an appropriate candidate for tPA due to unclear time of onset and being on anticoagulation with Eliquis. Additional imaging was recommended by Dr. Sandhu including MRI/MRA, maintenance of supine position and avoidance of tight control of blood pressure. His primary deficits include left-sided hemiparesis, slight right facial droop, slurred speech. He has been continued on full dose aspirin and Eliquis in addition to statin. Dr. Sandhu thoroughly reviewed imaging findings with the patient at bedside and he will require appropriate follow-up with CT surgery for noted right ICA stenosis this is likely not the culprit for this particular stroke. She recommended continued management of hypertension and diabetes at this the likely underlying contributing factors to this event. Patient has worked well with therapy and recommendation has been made for continued acute rehab which patient is agreeable to. He will require appropriate follow-up on his discharge from acute rehab facility with his primary care provider as well as with neurology. He does have a known history of A. fib, heart rate has remained controlled on sotalol. Deficits have remained essentially unchanged throughout his hospital stay. He is to maintain a mechanical soft diet and to be continued on aspiration precautions. He did develop some urinary retention requiring Dill catheter placement. This has since been discontinued and he has been able to void independently. Would avoid initiation of Flomax at this time to prevent risk of hypotension. Physical Exam Const: COMMON NORMALS: no acute distress, patient oriented x3 and alert GENERAL APPEARANCE: cooperative and comfortable ORIENTATION/CONSCIOUSNESS: Yes awake HENMT: COMMON NORMALS: normocephalic, atraumatic, hearing grossly normal bilaterally and moist oral mucous membranes HEAD & SCALP: normocephalic and atraumatic Eye: COMMON NORMALS: Equal, round and reactive pupils present, EOMs intact bilaterally and conjunctivae normal CONJUNCTIVA: Yes conjunctivae normal PUPIL: Yes Equal, round and reactive pupils present Neck/C-Spine: COMMON NORMALS: full ROM GENERAL: Yes normal visual inspection and Yes trachea midline Resp: COMMON NORMALS: normal respiratory effort, No retractions, No use of accessory muscles and clear to auscultation bilaterally EFFORT & INSPECTION: Yes able to speak in complete sentences, Yes symmetric chest movement and No tachypneic AUSCULTATION: clear to auscultation bilaterally OTHER: -on RA Cardio: COMMON NORMALS: regular rate, regular rhythm, S1 normal heart sound present, S2 normal heart sound present and No murmurs present (Cardio) RATE: regular rate RHYTHM: regular rhythm HEART SOUNDS: S1 normal heart sound present and S2 normal heart sound present GI: COMMON NORMALS: Normal to inspection, nondistended, normoactive bowel sounds present, Soft to palpation and non-tender PALPATION: Yes Soft to palpation Extremity: COMMON NORMALS: normal to inspection, full ROM and no clubbing, cyanosis or edema; negative for no pedal edema Neuro: COMMON NORMALS: patient oriented x3 and moves all extremities SEN SORIUM/ORIENTATION: Yes alert OTHER: -noted mild R facial droop, slightly slurred speech, L sided hemiparesis (more apparent in hand) Psych: COMMON NORMALS: mental status grossly normal, Normal thought process present, cooperative, normal affect and speech normal SPEECH: Yes normal speech THOUGHT PROCESS: Normal thought process present Skin: COMMON NORMALS: no rashes or lesions noted, no jaundice, no petechiae and no mottling GENERAL SKIN EXAM: no rashes or lesions noted Urinary Catheter Management^: Dill: Cath Placed During This Visit: yes Reason for Continuing Indwelling Catheter: Acute Urinary Retention or Ob struction Urinary Catheter Date of Insertion: 06/02/20 Urinary Catheter Time of Insertion: 14:16 Discharge Data Data Completed and Pending: Completed Studies During Hospitalization Category Date Time Status CT head wo con* 7 0450 Stat Cat Scan 05/31/20 14:38 Completed MR angio head wo con [id number] Routine MRI 06/02/20 09:24 Completed MR angio neck w c on* [id number] Routine MRI 06/03/20 10:15 Completed MR head wo/w con [id number] Routine MRI 06/02/20 09:24 Completed Vitals: Last Vital Signs Temp 97.9 F 06/05/20 03:51 Pulse 64 06/05/20 03:51 Resp 16 06/05/20 03:51 BP 157/85 06/05/20 03:51 Pulse Ox 96 06/05/20 03:51 Discharge Plan Discharge Patient Disposition: Xfer SNF Condition: Stable Prescriptions: New pantoprazole 40 mg Tablet,Delayed Release (Dr/Ec) 40 mg PO DAILY Qty: 30 RF: 0 Continued canagliflozin [Invokana] 300 mg tablet 300 mg PO DAILY Qty: 90 RF: 3 clonazepam 0.5 mg tablet 0.5 mg PO TID PRN (Reason: Anxiety) Qty: 90 RF: 3 Januvia 100 mg tablet 100 mg PO DAILY Qty: 30 RF: 3 sotalol 120 mg tablet 120 mg PO BID RF: 0 levothyroxine [Synthroid] 150 mcg tablet 150 mcg PO DAILY RF: 0 terbinafine HCl 250 mg tablet 250 mg PO BEDTIME RF: 0 irbesartan 75 mg tablet 150 mg PO DAILY Qty: 90 RF: 3 PreserVision AREDS-2 [id number] Capsule 1 tab PO BID RF: 0 atorvastatin 40 mg Tablet 80 mg PO BEDTIME Qty: 30 RF: 0 aspirin 325 mg Tablet 325 mg PO DAILY Qty: 30 RF: 0 Eliquis 5 mg tablet 5 mg PO BID Qty: 180 RF: 3 Discharge Orders: Discharge Order (Routine); Ordered 06/05/20 Ordered By: Ely Hood Referrals: Kamilla Sandhu MD [Physician] - 1 month Eber Judge MD [Primary Care Provider] - 4-7 days Discharge Diet: Cardiac and Diabetic Discharge Activity: Increase activity as tolerated and As per PT/OT instructions Patient Instructions: Self Care Measures After a Stroke (DC) Discharge Attestations Time Spent in Discharge Care*: greater than 30 min Specific Discharge Activities: educating patient, educating and/or supporting family/caregiver, discussing with pcp/other providers, discussing with business case analyst/social workers/dc planners, documenting/other paperwork and evaluating patient/reviewing data Status at Discharge: Cognitive status at discharge: cognitively intact , Behavioral status at discharge: cooperative and dependent in ADL's , Functional status at discharge: uses cane/walker Overall status at discharge: patient has a new baseline Quality Metrics Clinical Quality Measures During this hospital stay, did patient experience: Stroke Contraindication to Antithrombotic: Antithrombotic prescribed Contraindication to Anticoagulation: Anticoagulation prescribed Contraindication to Statin: Statin prescribed Reason stroke education not provided: Stroke education provided to patient Rehab services assessed: Rehabilitation assessment, Physical therapy, Occupational therapy, Speech therapy and Stroke rehabilitation Coding Level of Care Code Acute [place] [facility] for [facility] Fwd Exam Comprehensive Diagnoses Right pontine stroke I63.50 Urinary retention R33.9 Carotid artery stenosis I65.21 Laterality: right Diabetes mellitus E11.49 Diabetes mellitus complication detail: with other neurological complication Diabetes mellitus complication status: with neurologic complications Diabetes mellitus ad terminal makeup operator insulin use: without ad terminal makeup operator use Diabetes mellitus type: type 2 A-fib I48.0 Atrial fibrillation type: paroxysmal Hypothyroid E03.9 Hypothyroidism type: acquired Essential hypertension I10
[2020-06-05] MEDS: levothyroxine 150 mcg Tablet PO (08:50)
[2020-06-05] MEDS: sotalol 80 mg Tablet 120 MG PO (08:58)
[2020-06-05 09:09] VITALS: BP 132/67; PULSE 79; RESP 18
--- NOTE | 2020-06-05 09:49 | PC.SOCIAL ---
IMM Update Pg. 2 of [facility] updated and reviewed with Dr. Guevara. He verbalized understanding. Copy provided.
[2020-06-05 10:24] VITALS: BP 132/67; PULSE 79; RESP 18
== END 2020-06-05 11:50 | disposition skilled nursing facility (03) | DRG 65 ==
LOC: ER 16:27 → CSU 16:55
PROVIDERS: Internal Medicine; Admitting Provider Student in an Organized Health Care Education/Training Program; Emergency Provider Family Medicine; PCP Internal Medicine; Visit Provider Family Medicine
DX: I63.231 Cerebral infarction due to unspecified occlusion or stenosis of right carotid arteries (principal); G81.94 Hemiplegia, unspecified affecting left nondominant side; I48.20 Chronic atrial fibrillation, unspecified; R29.810 Facial weakness; R47.81 Slurred speech; R29.702 NIHSS score 2; I10 Essential (primary) hypertension; E03.9 Hypothyroidism, unspecified; E11.9 Type 2 diabetes mellitus without complications; Z79.01 Long term (current) use of anticoagulants; I65.21 Occlusion and stenosis of right carotid artery; L60.3 Nail dystrophy; Z87.891 Personal history of nicotine dependence; R33.9 Retention of urine, unspecified; Z86.73 Personal history of transient ischemic attack (TIA), and cerebral infarction without residual deficits
CPT/HCPCS: 12345; 36415; 51702; 70450; 70544; 70548; 70553; 80053; 81003; 85025; 85610; 85730; 92507; 92523; 92526; 92610; 93005; 97110; 97116; 97161; 97165; 97530; 97535; 99283; A9579; J7030

== ENCOUNTER → 2020-06-22 14:02 | Outpatient (BNVA) | payer MEDICARE, OTHER, SELFPAY | PROVIDERS: PCP Internal Medicine; Visit Provider Specialist | DX: Z09 Encounter for follow-up examination after completed treatment for conditions other than malignant neoplasm (principal); Z86.73 Personal history of transient ischemic attack (TIA), and cerebral infarction without residual deficits; I65.21 Occlusion and stenosis of right carotid artery; Z87.891 Personal history of nicotine dependence | CPT/HCPCS: 99215 ==

== ENCOUNTER → 2020-08-09 15:16 | Outpatient (BNVA) | payer MEDICARE, OTHER, SELFPAY | PROVIDERS: PCP Internal Medicine; Visit Provider Specialist | DX: I69.354 Hemiplegia and hemiparesis following cerebral infarction affecting left non-dominant side (principal); G45.0 Vertebro-basilar artery syndrome; I48.20 Chronic atrial fibrillation, unspecified; Z79.01 Long term (current) use of anticoagulants; Z87.891 Personal history of nicotine dependence | CPT/HCPCS: 99214 ==

== ENCOUNTER 2020-08-13 08:16 | Outpatient (CLI) | payer MEDICARE, OTHER, SELFPAY ==
--- NOTE | 2020-08-13 08:30 | CT_ITS ---
WS: [id number] CTA NECK TECHNIQUE: Contrast enhanced CTA of the neck with coronal and sagittal reformatted images and maximum intensity projection (MIP) images. NASCET criteria utilized. CLINICAL INFORMATION: I65.23 - Occlusion and stenosis of bilateral carotid arteries COMPARISON: Multiple prior examinations MRA neck June 03, 2020, CTA May 24, 2020 ,MRA caroti d 7 25,016 DLP: 529.[address] scans at [facility] use at least one of these dose optimization techniques: automat ed exposure control; mA and/or kV adjustment per patient size (includes targeted exams where dose is matched to clinical indication); or iterative reconstruction. FINDINGS: RIGHT: Right common carotid artery is patent. Calcified atheromatous plaque right carotid bulb extend ing into the ICA. Stenosis right proximal ICA approximately 1 cm distal to the bifurcation measuring approximately 42 % is unchanged. Right ICA is patent to the skull base. LEFT: Left common carotid artery is patent. Moderate calcified atheromatous disease left carotid bulb extending into the ICA. Less than 50% left ICA stenosis. Left ICA is patent to the skull base. Both vertebral arteries are patent. Vertebral arteries are patent to the skull base. Mastoid air cells and paranasal sinuses are well aerated. Lung apices are well aerated. Moderate spon dylitic changes cervical spine. Disc osteophyte complex at C4-5 with moderate central canal stenosis. CT/CT angio neck [id number] IMPRESSION: 1. Right proximal ICA stenosis measuring approximately 42 % with moderate calc ified atheromatous plaque 1 cm distal to the bifurcation. 2. Less than 50% left ICA stenosis. 3. Both vertebral arteries are patent.
[2020-08-13 08:57] LABS: Blood Urea Nitrogen 17 mg/dL (8-23)
[2020-08-13] MEDS: iohexol 350 mg/mL 100 mL Btl IV (09:13)
== END 2020-08-13 08:17 | disposition home or self-care (01) ==
LOC: RADWPI 08:20
PROVIDERS: PCP Internal Medicine; Visit Provider Thoracic Surgery (Cardiothoracic Vascular Surgery)
DX: I65.23 Occlusion and stenosis of bilateral carotid arteries (principal)
CPT/HCPCS: 70498; 82565; 84520; Q9967

== ENCOUNTER → 2020-11-16 10:25 | Outpatient (BNVA) | payer MEDICARE, OTHER, SELFPAY | PROVIDERS: PCP Internal Medicine; Visit Provider Specialist | DX: I69.354 Hemiplegia and hemiparesis following cerebral infarction affecting left non-dominant side (principal); I65.21 Occlusion and stenosis of right carotid artery; I48.0 Paroxysmal atrial fibrillation; E11.49 Type 2 diabetes mellitus with other diabetic neurological complication; Z87.891 Personal history of nicotine dependence | CPT/HCPCS: 99213 ==

== ENCOUNTER 2020-11-24 11:21 | Outpatient (CLI) | payer MEDICARE, OTHER, SELFPAY ==
[2020-11-24 12:31] LABS: Alanine Aminotransferase 23 U/L (0-41); Chol HDL Ratio 2.21 mg/dL (1.0-5.00); Cholesterol 126 mg/dL (0-200); HDL Cholesterol 57 mg/dL (60-100); LDL Cholesterol Calculated 61 mg/dL (50-129); LDL HDL Ratio 1.07 RATIO (0.00-3.22); Triglycerides 41 mg/dL (0-150)
[2020-11-24 12:42] LABS: Estmated Average Glucose 131; Hemoglobin A1C 6.2 % (4.0-6.0)
== END 2020-11-24 11:22 | disposition home or self-care (01) ==
LOC: LAB 11:28
PROVIDERS: PCP Internal Medicine; Visit Provider Specialist
DX: E11.49 Type 2 diabetes mellitus with other diabetic neurological complication (principal); G45.0 Vertebro-basilar artery syndrome
CPT/HCPCS: 36415; 80061; 83036; 84460

== ENCOUNTER 2020-12-26 19:45 | Emergency (ER) | payer MEDICARE, OTHER, SELFPAY ==
[2020-12-26] VITALS (8 sets, daily range): BP systolic 129–232; BP diastolic 78–117; PULSE 81–92; RESP 12–23; TEMP 36.8; O2SAT 97–100; BMI 25.1
--- NOTE | 2020-12-26 20:21 | CTR_ITS ---
PROCEDURE INFORMATION: Exam: CT Head Without Contrast Exam date and time: 12/26/2020 8:29 PM Age: 80 years old Clinical indication: Injury or trauma; Blunt trauma (contusions or hematomas); Consciousness not specified; Patient HX: Backwards fall from standing TECHNIQUE: Imaging protocol: Computed tomography of the head without contrast. Radiation optimization: All CT scans at this facility use at least one of these dose optimization techniques: automated exposure control; mA and/or kV adjustment per patient size (includes targeted exams where dose is matched to clinical indication); or iterative reconstruction. COMPARISON: CT head wo con* [id number] 05/31/2020 3:29 PM RADIATION DOSE METRICS: Total DLP (mGy-cm): 1000.44 FINDINGS: Brain: Large volume crescentic predominantly hyperdense right cerebral convexity extra-axial hematoma. Greatest transverse dimension 15 mm. There is substantial mass effect. There is right to left midline shift 10 mm. There is cerebral sulcal effacement in the right cerebral hemisphere. Basilar cisterns are patent. There is increased hyperdensity layering over the left tentorium cerebelli also likely representing extra-axial hemorrhage. Negative for intraparenchymal hemorrhage. Negative for acute brain ischemia. Orellana matter and white matter preserved. Cerebral ventricles: No ventriculomegaly. Paranasal sinuses: Visualized sinuses are unremarkable. No fluid levels. Mastoid air cells: Visualized mastoid air cells are well aerated. Orbital cavity: Lens replacements. Orbits are symmetric without acute abnormality. Bones/joints: Unremarkable. No acute fracture. Soft tissues: There is a large posterior scalp hematoma. Other findings: THIS REPORT CONTAINS FINDINGS THAT MAY BE CRITICAL TO PATIENT CARE. The findings were verbally communicated via telephone conference with Dr. Lopez at 9:00 PM CDT on 12/26/2020. The findings were acknowledged and understood. CT/CT head wo con* [id number] IMPRESSION: 1. Large right cerebral convexity extra-axial hematoma. Subdural hemorrhage favored. Most likely additional subdural hematoma layering over left tentorium cerebelli. 2. There is significant mass effect and midline shift of the brain right to left. Radiation Dose CTDIVOL = (mGy): DLP = 1000.44 (mGy-cm)
--- NOTE | 2020-12-26 20:22 | ED_ITS ---
Documented by User: RICKY Pozo 12/26/20 21:38 HPI - Fall General: Chief Complaint: Fall Stated Complaint: fell, hit head Time Seen by Provider: 12/26/20 20:16 History of Present Illness: HPI Narrative: 80-year-old male patient comes in today for injury to the back of the head. Patient had lost his balance and fell at home. Patient had a stroke about 6 months ago which affected his left side. Patient has recovered considerably since that time but continues to have some difficulty maintaining balance. Patient does take apixaban routinely for his atrial fib. Patient does have a history of diabetes. Spouse is very concerned about patient due to the amount of blood he lost from the injury. Spouse states that he seems a little bit more confused since the fall which is not normal for him. Review of Systems General: Reports: 10 or more systems reviewed and unremarkable except in HPI and below Skin/Breast: Reports: other (Fall, head injury.) PFS ED PFSH: Medical History A-fib -has known hx of atrial fibrillation, s/p multiple cardioversions, ablations x 2 -HR controlled -telemetry monitoring -continue sotalol, Eliquis -follows up with Dr. Galvez at [facility] ([place]) Diabetes mellitus -A1c at goal-7.1 Electrical isolation of left atrial appendage after cardiac ablation procedure for atrial fibrillation Essential hypertension -keep BP a little higher to maintain circulation in light of CVA -continue to monitor vital signs Hypothyroid -TSH wnl -continue levothyroxine Onychodystrophy Surgical History History of tonsillectomy and adenoidectomy Family History Other CAD (coronary artery disease) Denies family history of Diabetes Cancer Social History Smoking and tobacco status: former smoker Alcohol intake: never History of recent travel: No Physical Exam Const: COMMON NORMALS: no acute distress and patient oriented x3 GENERAL APPEARANCE: cooperative HENMT: COMMON NORMALS: TM's normal bilaterally and Normal external nose present HEAD & SCALP: other (Abrasion to the posterior scalp area.) NOSE: Normal external nose present TYMPANIC MEMBRANE: TM's normal bilaterally MOUTH: Normal oral and palatal mucosa present THROAT: posterior oropharynx normal Eye: GENERAL EYE: appearance normal, both eyes and all related structures Neck/C-Spine: COMMON NORMALS: full ROM Lymph: LYMPHATIC: no lymphadenopathy noted Chest: COMMONS NORMALS: normal inspection of the chest Resp: COMMON NORMALS: normal respiratory effort EFFORT & INSPECTION: Yes able to speak in complete sentences Cardio: COMMON NORMALS: regular rate and regular rhythm RATE: regular rate RHYTHM: regular rhythm GI: COMMON NORMALS: non-tender Back/Pelvis: LUMBAR SPINE/LOWER BACK: Yes lumbar spinal tenderness Extremity: COMMON NORMALS: normal to inspection Neuro: COMMON NORMALS: patient oriented x3 and moves all extremities Psych: COMMON NORMALS: mental status grossly normal and cooperative Skin: COMMON NORMALS: no rashes or lesions noted GENERAL SKIN EXAM: no rashes or lesions noted Course ED course: 2054, patient was turned over to Dr. Lopez due to hematoma noted on the CT scan with some mild midline shift. wjw Vital Signs: Vital signs: Vital Signs Temperature 98.2 F 12/26/20 21:46 Pulse Rate 86 12/26/20 22:05 Respiratory Rate 16 12/26/20 22:05 Blood Pressure 133/78 12/26/20 21:46 Pulse Oximetry 99 12/26/20 22:05 MDM - Fall Lab Data: Labs: Lab Results 12/26/20 Range/Units 22:04 POC Glucose 146 H (70-110) mg/dL Discharge Plan Discharge Patient Disposition: Xfer Short-Term Hosp Clinical Impression: Acute subdural hematoma Condition: Critical Referrals: Eber Judge MD [Primary Care Provider] - Coding Level of Care Code ED Supervisor Nurse for Chg Fwd Exam Comprehensive Documented by User: Sudeep Lopez DO 12/27/20 05:09 HPI - Fall General: Chief Complaint: Fall Stated Complaint: fell, hit head Time Seen by Provider: 12/26/20 20:16 [facility] ED PFS: Medical History A-fib -has known hx of atrial fibrillation, s/p multiple cardioversions, ablations x 2 -HR controlled -telemetry monitoring -continue sotalol, Eliquis -follows up with Dr. Galvez at [facility] ([place]) Diabetes mellitus -A1c at goal-7.1 Electrical isolation of left atrial appendage after cardiac ablation procedure for atrial fibrillation Essential hypertension -keep BP a little higher to maintain circulation in light of CVA -continue to monitor vital signs Hypothyroid -TSH wnl -continue levothyroxine Onychodystrophy Surgical History History of tonsillectomy and adenoidectomy Family History Other CAD (coronary artery disease) Denies family history of Diabetes Cancer Social History Smoking and tobacco status: former smoker Alcohol intake: never History of recent travel: No Procedures Intubation Time out performed: No sedative: Etomidate Mg Given: 20 paralytic: Rocuronium Mg Given: 80 Laryngoscope: Justin (4) ET Tube Size: 8 ET Tube Uncuffed: No Tube Secured Depth (cm): 24 Tube Secured Location: lips Tube Placement Confirmation: visualized tube passing through cords, equal breath sounds bilaterally and confirmation by capnometry Patient Tolerated Procedure: well and no complications Intubation Complications: none Course 2 ED course: 80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 I agree with his history, evaluation, work-up, and treatment. This patient was found to have a large right-sided subdural hematoma. There is significant mass- effect and midline shift. The patient vomited in CT. He was decreasing in his level of responsiveness on the way back from CT, so intubation was performed without complication. His airway is secure. Current vitals blood pressure 140/81 heart rate 90 sinus, saturations 98%, respirations are 22 on the monitor. He is on the ventilator. He is getting propofol for sedation. Elijah and Augustina in [place] are both on trauma ER divert. I spoke with the ER at [facility], and they are willing to take the patient. I also spoke with the neurosurgeon who suggests reversing the apixaban, and infusion of mannitol. The patient has already gotten 1 g of tranexamic acid. Whether is not permitting flight currently, so the patient will have to go by ground. Hopefully, we can offload the patient to air transport up the road if the weather clears. Consultations: Consultation #1: Jonathan, ER [facility] Consultation #2: Julian, Neurosurgery [facility] Vital Signs: Vital signs: Vital Signs Temperature 98.2 F 12/26/20 21:46 Pulse Rate 86 12/26/20 22:05 Respiratory Rate 16 12/26/20 22:05 Blood Pressure 133/78 12/26/20 21:46 Pulse Oximetry 99 12/26/20 22:05 MDM - Fall Lab Data: Labs: Lab Results 12/26/20 Range/Units 22:04 POC Glucose 146 H (70-110) mg/dL Critical Care Time Critical Care Time: Critical Care Time: Yes Total Critical Care Time: 50 Attestation: This case had a high probability of a clinically significant, sudden, or life threatening deterioration of this patient's condition which required my full and direct attention, intervention and personal management. Discharge Plan Discharge Patient Disposition: Xfer Short-Term Hosp Clinical Impression: Acute subdural hematoma Condition: Critical Referrals: Eber Judge MD [Primary Care Provider] - Coding Level of Care Code ED Supervisor Nurse for Viktor Fwd Exam Comprehensive
[2020-12-26] MEDS: ondansetron 2 mg/ML SDV 2 mL 8 MG IVP (20:54)
[2020-12-26] MEDS: rocuronium 10 mg/mL INJ 5mL 80 MG IV (21:14)
[2020-12-26] MEDS: midazolam 1 mg/mL INJ 2 mL 4 MG IVP (21:17)
--- NOTE | 2020-12-26 21:19 | XRR_ITS ---
PROCEDURE INFORMATION: Exam: XR Chest Exam date and time: 12/26/2020 9:20 PM Age: 80 years old Clinical indication: Device placement; Ett placement (vent status); Additional info: Post intubation TECHNIQUE: Imaging protocol: XR of the chest. Views: 1 view. COMPARISON: CR XR chest 1V portable [id number] 05/24/2020 4:11 AM FINDINGS: Tubes, catheters and devices: Mid trachea positioning of the endotracheal tube. The NG tube is terminating near the esophageal hiatus. The distal side hole is above the diaphragm. Lungs: There is some mild haziness of the right upper lung field which is nonspecific. Pleural spaces: Unremarkable. No pleural effusion. No pneumothorax. Heart/Mediastinum: Unremarkable. No cardiomegaly. Vasculature: No vascular dilation. Bones/joints: Significant arthritis changes in shoulders. 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 Negative for acute thoracic fracture. XR/XR chest 1V portable [id number] IMPRESSION: 1. Satisfactory position of endotracheal tube. 2. Advancement of the NG tube is recommended about 10-15 cm.
[2020-12-26] MEDS: propofol 1,000 MG/100 ML INJ 4.6 MG IV (21:25)
[2020-12-26 22:08] LABS: Glucose Point of Care 146 mg/dL (70-110)
[2020-12-26] MEDS: factor xa, inactivated-zhzo 400 MG in empty flexible container 1 EACH, non-DEHP filter ... 180 MG IV (22:14)
[2020-12-26] MEDS: mannitol 12.5 gm/50 mL (25%) SDV IV (22:18)
[2020-12-26] MEDS: factor xa, inactivated-zhzo 480 MG in empty flexible container 1 EACH, non-DEHP filter ... 24 MG IV (22:32)
[2020-12-26] MEDS: vecuronium 10 mg SDV 8 MG IVP (22:33)
== END 2020-12-26 22:35 | disposition short-term general hospital (02) ==
PROVIDERS: Emergency Provider Emergency Medicine; PCP Internal Medicine
DX: S06.5X9A Traumatic subdural hemorrhage with loss of consciousness of unspecified duration, initial encounter (principal); E11.9 Type 2 diabetes mellitus without complications; I10 Essential (primary) hypertension; Z87.891 Personal history of nicotine dependence; W19.XXXA Unspecified fall, initial encounter; Z86.73 Personal history of transient ischemic attack (TIA), and cerebral infarction without residual deficits
CPT/HCPCS: 31500; 36416; 51702; 70450; 71045; 82962; 94002; 94799; 96365; 96366; 96367; 96375; 99291; J2150; J2250; J2405; J2704; J3490; J7169